=== PATIENT | male | born 1970 | race Caucasian/White ===

== ENCOUNTER 2017-04-28 15:10 | Inpatient (IN) ==
[2017-04-28] MEDS ORDERED: Ketorolac 15 MG/ML VIAL IM ONE (16:06)
--- NOTE | 2017-04-28 16:10 | Emergency Department Note ---
Disposition Clinical Impression: Renal colic on left side, Suicidal ideation Anemia Qualifiers: Anemia type: unspecified type Qualified Code(s): D64.9 - Anemia, unspecified GI bleed Qualifiers: GI bleed type/associated pathology: unspecified gastrointestinal hemorrhage type Qualified Code(s): K92.2 - Gastrointestinal hemorrhage, unspecified Disposition: Admitted As Inpatient Condition: Fair Referrals: NONE,PCP [Primary Care Provider] - Forms: ED Satisfaction Letter Time of Disposition: 17:35 Psych HPI - General Chief Complaint: ED Psychiatric Symptoms Stated Complaint: SI/Kidney stones Time Seen by Provider: 04/28/17 15:40 Source: patient Mode of arrival: ambulatory Limitations: no limitations Nursing Notes Reviewed: Yes Vital Signs Reviewed: Yes - History of Present Illness HPI Narrative: Patient states he has kidney stone pain. He cannot get the pain under control from the prescribed [place]. He states he cannot get his regular [place] filled because it is too early. He states he takes chronic pain medications and is likely addicted to them. He takes them for chronic kidney stone pain. He notes urinary frequency without hematuria. No nausea or vomiting. Pain localized to left flank The patient states that his inability to control his pain is causing him to feel suicidal. He states he is afraid that if he leaves here and pain he will kill himself Pt complaint: suicidal ideation Onset (ago): day(s) Duration: constant History of similar episodes: Yes Improves with: none Worsens with: other (kidney pain) Context: significant life stressor Alleged intoxication: No Associated Psychiatric Symptoms: suicidal ideation Associated symptoms: Reports: other (Left flank pain) Traumatic symptoms: denies traumatic injury Treatments prior to arrival: none Self harm or harm to others: admits thoughts of self harm - Related Data Home Medications Medication Instructions Recorded Confirmed Lipase/Protease/Amylase 2 each PO TIDWM 01/14/15 03/03/15 [Pancrelipase Dr 5,000 Unit Cap] Clomipramine HCl [Anafranil] 50 mg PO HS 03/03/15 03/03/15 Sertraline [Zoloft] 25 mg PO 03/03/15 03/03/15 Previous Rx's Medication Instructions Recorded Ondansetron ODT [Zofran ODT] 4 mg SL Q8HR PRN #15 tab.rapdis 01/07/15 HydrOXYzine Pamoate 50 mg PO QID 30 Days capsule 03/05/15 Sertraline [Zoloft] 200 mg PO DAILY 30 Days tablet 03/05/15 TraZODone 100 mg PO HS PRN 30 Days tablet 03/05/15 OxyCODONE/APAP 5/325 [Percocet 1 each PO Q8HR PRN #7 tablet 03/14/15 5/325] Oxycodone HCl/Acetaminophen 1 each PO Q4HR #10 tablet 01/22/16 [Percocet 5-325 mg Tablet] Ondansetron ODT [Zofran ODT] 4 mg SL Q6HR #20 tab.rapdis 10/21/16 Ketorolac [Toradol] 10 mg PO Q6HR #16 tablet 03/15/17 Naproxen [Naprosyn] 500 mg PO BID PRN #14 tablet 03/24/17 Ondansetron [Zofran] 4 mg PO Q8HR PRN #14 tablet 03/24/17 HYDROcodone/Acet 5/325 mg [[place] 1 - 2 tab PO Q6H PRN #10 tab 03/30/17 5-325 mg] Naproxen [Naprosyn] 500 mg PO BID #14 tablet 04/24/17 Allergies Allergy/AdvReac Type Severity Reaction Status Date / Time No Known Allergies Allergy Verified 04/22/17 18:21 All systems ED: reviewed and negative except as stated. Constitutional: Reports: as per HPI Eyes: Reports: as per HPI ENT ED: Reports: as per HPI Cardiovascular: Reports: as per HPI Respiratory: Reports: as per HPI Gastrointestinal: Reports: melena (Black stools) Genitourinary: Reports: frequency Musculoskeletal: Reports: back pain Integumentary: Reports: as per HPI Neurological: Reports: as per HPI Psychiatric: Reports: suicidal thoughts Endocrine: Reports: as per HPI Hematological/Lymphatic: Reports: as per HPI Allergic/Immunologic: Reports: as per HPI Past Medical History - Past Medical History Source: patient Medical history: Reports: diabetes, kidney stones Surgical history: Reports: cholecystectomy, other Psychiatric history: Reports: depression - Social History Smoking Status: Never smoker Smokeless Tobacco Status: No Alcohol use: Reports: none Drug use: Reports: none Physical Exam - General Limitations: no limitations General appearance: alert, anxious - Head Head exam: atraumatic - Eye Eye exam: Present: normal appearance - ENT ENT exam: normal exam - Neck Neck exam: Present: normal inspection - Chest Chest inspection: Present: normal inspection, symmetric chest wall rise - Respiratory Respiratory exam: Present: normal lung sounds bilaterally - Cardiovascular Cardiovascular exam: Present: regular rate, normal rhythm, normal heart sounds - Abdominal Exam Abdominal exam: Present: soft, Non-Tender - Rectal Exam Rectal exam: Present: normal inspection, normal rectal tone. Absent: bloody stool - Extremities Exam Extremities exam: Present: normal inspection - Back Exam Back exam: Present: CVA tenderness (L). Absent: CVA tenderness (R) - Neurological Exam Neurological exam: Present: alert, oriented X3, CN II-XII intact - Psychiatric Psychiatric exam: Present: normal affect, anxious - Skin Skin exam: Present: warm, dry, intact, pallor Course Course Narrative: Patient complains of left flank pain. States he has a chronic history of kidney stones causing pain not controlled by his home pain medications. He has now recently run out and is unable to fill his new prescription. I have reviewed the CT abdomen and pelvis dated 04/23/17 which was 5 days ago. This did not show any obstructive uropathy. I also reviewed the x-ray KUB dated which was 4 days prior to arrival which showed a radiopaque density over the left hemiabdomen. I discussed this finding with the radiologist Dr. Gurrola who states anatomically it is likely localized to the inferior pole of his left kidney - Reevaluation(s) Reevaluation #1: Hemoglobin is 8. This appears to have been trending down per my review of labs. Digital rectal exam performed with fecal occult testing Time: 17:07 Reevaluation #2: I am unable to clear the patient medically for behavioral evaluation due to anemia and GI bleed. Admission to the medicine service recommended. Patient agreeable Vital Signs Temperature 98.2 F 04/28/17 15:42 Pulse Rate 82 04/28/17 15:42 Respiratory Rate 16 04/28/17 15:42 Blood Pressure 144/81 04/28/17 15:42 O2 Sat by Pulse Oximetry 95 04/28/17 15:42 Temperature 98.2 F 04/28/17 15:42 Pulse Rate 82 04/28/17 15:42 Respiratory Rate 16 04/28/17 15:42 Blood Pressure 144/81 04/28/17 15:42 O2 Sat by Pulse Oximetry 95 04/28/17 15:42 Oxygen Delivery Oxygen Delivery Room Air Psych - Medical Records Medical records reviewed: Yes I reviewed the patient's medical records. - Lab Data Lab results reviewed: Yes I reviewed the patient's lab results. Result diagrams: 04/28/17 16:35 04/28/17 16:35 Lab Results 04/28/17 04/28/17 04/28/17 Range/Units 16:12 16:12 16:35 WBC 9.7 (4.3-11.1) K/mcL RBC 3.76 L (4.19-5.50) M/mcL Hgb 8.0 L (12.9-16.9) g/dL Hct 25.8 L (37.5-50.1) % MCV 68.6 L (83.0-100.0) fL MCH 21.3 L (28.0-33.3) pg MCHC 31.0 L (31.6-35.5) g/dL RDW 19.7 H (11.5-14.5) % Plt Count 680 H (140-400) K/mcL MPV 10.5 (9.4-12.4) fL Immature Gran % 0.2 (0-4) % Seg Neutrophils % 40.4 % Lymphocytes % 47.0 % Monocytes % 10.7 % Eosinophils % 0.6 % Basophils % 1.1 % Neutrophils # 3.9 (1.6-8.9) K/mcL Lymphocytes # 4.6 (0.6-4.6) K/mcL Monocytes # 1.0 (0.0-1.3) K/mcL Eosinophils # 0.1 (0.0-0.6) K/mcL Basophils # 0.1 (0.0-0.2) K/mcL Nucleated RBCs/100 WBC 0.5 H (0) /100 WBC Platelet Estimate Marked Increase H (Normal) Hypochromasia Present A (Not Present) Poikilocytosis 1+ A (Not Present) Anisocytosis 2+ A (Not Present) Target Cells 3+ A (Not Present) Sodium (136-145) mEq/L Potassium (3.5-4.5) mEq/L Chloride (98-109) mEq/L Carbon Dioxide (19-29) mEq/L BUN (8-26) mg/dL Creatinine (0.72-1.25) mg/dL Est GFR ( Amer) (> 60) Est GFR (Non-Af Amer) (> 60) BUN/Creatinine Ratio (6-26) Glucose (70-99) mg/dL Calculated Osmolality (280-300) Calcium (8.6-10.8) mg/dL Total Bilirubin (0.2-1.2) mg/dL Direct Bilirubin (0.0-0.5) mg/dL Indirect Bilirubin (0.0-1.2) mg/dL AST (5-34) Units/L ALT (0-55) Units/L Alkaline Phosphatase (38-126) Units/L Serum Total Protein (6.0-8.3) g/dL Albumin (3.5-5.0) g/dL Globulin (2.4-3.5) g/dL Albumin/Globulin Ratio (1.1-2.2) Urine Color Yellow (Yellow) Urine Clarity Clear (Clear) Urine pH 6.5 (5.0-8.0) pH Units Ur Specific [place] 1.027 H (1.010-1.025) Urine Protein Negative (Neg-Trace) mg/dL Urine Glucose (UA) Normal (Normal) mg/dL Urine Ketones Negative (Negative) mg/dL Urine Blood Small H (Negative) Urine Nitrite Negative (Negative) Urine Bilirubin Negative (Negative) Urine Urobilinogen Normal (Normal) mg/dL Ur Leukocyte Esterase Negative (Negative) Urine Microscopic RBC 30-50 H (0-3) per hpf Urine Microscopic WBC 0-3 (0-3) per hpf Ur Squamous Epith Cells Many H (None-Few) per lpf Urine Bacteria None Seen (None-Few) per hpf Hyaline Casts None Seen (None-Few) per lpf Stool Occult Blood (Negative) Salicylates (15-30) mg/dL Urine Opiates Screen Positive H (Wlzxas=534) ng/mL Acetaminophen (10-30) mcg/mL Ur Barbiturates Screen Negative (Lllnke=584) ng/mL Ur Phencyclidine Scrn Negative (Cutoff=25) ng/mL Ur Amphetamines Screen Negative (Lgzjwz=6552) ng/mL U Benzodiazepines Scrn Negative (Tkjbbj=475) ng/mL Urine Cocaine Screen Negative (Cutoff= 300) ng/mL U Marijuana (THC) Screen Negative (Cutoff = 50) ng/mL Ethyl Alcohol (0-10) mg/dL 04/28/17 04/28/17 Range/Units 16:35 16:58 WBC (4.3-11.1) K/mcL RBC (4.19-5.50) M/mcL Hgb (12.9-16.9) g/dL Hct (37.5-50.1) % MCV (83.0-100.0) fL MCH (28.0-33.3) pg MCHC (31.6-35.5) g/dL RDW (11.5-14.5) % Plt Count (140-400) K/mcL MPV (9.4-12.4) fL Immature Gran % (0-4) % Seg Neutrophils % % Lymphocytes % % Monocytes % % Eosinophils % % Basophils % % Neutrophils # (1.6-8.9) K/mcL Lymphocytes # (0.6-4.6) K/mcL Monocytes # (0.0-1.3) K/mcL Eosinophils # (0.0-0.6) K/mcL Basophils # (0.0-0.2) K/mcL Nucleated RBCs/100 WBC (0) /100 WBC Platelet Estimate (Normal) Hypochromasia (Not Present) Poikilocytosis (Not Present) Anisocytosis (Not Present) Target Cells (Not Present) Sodium 137 (136-145) mEq/L Potassium 4.1 (3.5-4.5) mEq/L Chloride 103 (98-109) mEq/L Carbon Dioxide 24 (19-29) mEq/L BUN 22 (8-26) mg/dL Creatinine 0.76 (0.72-1.25) mg/dL Est GFR ( Amer) > 60 (> 60) Est GFR (Non-Af Amer) > 60 (> 60) BUN/Creatinine Ratio 29 H (6-26) Glucose 88 (70-99) mg/dL Calculated Osmolality 287 (280-300) Calcium 8.5 L (8.6-10.8) mg/dL Total Bilirubin 0.4 (0.2-1.2) mg/dL Direct Bilirubin 0.2 (0.0-0.5) mg/dL Indirect Bilirubin 0.2 (0.0-1.2) mg/dL AST 44 H (5-34) Units/L ALT 35 (0-55) Units/L Alkaline Phosphatase 123 (38-126) Units/L Serum Total Protein 6.6 (6.0-8.3) g/dL Albumin 3.7 (3.5-5.0) g/dL Globulin 2.9 (2.4-3.5) g/dL Albumin/Globulin Ratio 1.3 (1.1-2.2) Urine Color (Yellow) Urine Clarity (Clear) Urine pH (5.0-8.0) pH Units Ur Specific [place] (1.010-1.025) Urine Protein (Neg-Trace) mg/dL Urine Glucose (UA) (Normal) mg/dL Urine Ketones (Negative) mg/dL Urine Blood (Negative) Urine Nitrite (Negative) Urine Bilirubin (Negative) Urine Urobilinogen (Normal) mg/dL Ur Leukocyte Esterase (Negative) Urine Microscopic RBC (0-3) per hpf Urine Microscopic WBC (0-3) per hpf Ur Squamous Epith Cells (None-Few) per lpf Urine Bacteria (None-Few) per hpf Hyaline Casts (None-Few) per lpf Stool Occult Blood Positive A (Negative) Salicylates < 5.0 L (15-30) mg/dL Urine Opiates Screen (Dkqpyq=217) ng/mL Acetaminophen < 1.0 L (10-30) mcg/mL Ur Barbiturates Screen (Mppfnh=184) ng/mL Ur Phencyclidine Scrn (Cutoff=25) ng/mL Ur Amphetamines Screen (Gixoex=3187) ng/mL U Benzodiazepines Scrn (Nfnkir=456) ng/mL Urine Cocaine Screen (Cutoff= 300) ng/mL U Marijuana (THC) Screen (Cutoff = 50) ng/mL Ethyl Alcohol < 10 (0-10) mg/dL Psychiatric Medical Clearance - Medical Clearance Checklist Medical History: Calculus of kidney (Acute) Depression (Acute) Suicidal ideations (Acute) Homicidal ideations (Acute) Substance or medication-induced depressive disorder (Acute) Bilateral flank pain (Acute) Renal colic (Acute) Anemia (Acute) Renal colic on left side (Acute) Abdominal pain (Inactive) Abdominal pain (Inactive) Abdominal pain (Inactive) Drug abuse (Inactive) Flank pain, acute (Inactive) Hematuria (Inactive) Hematuria (Inactive) Intractable pain (Inactive) Kidney stones (Inactive) Left flank pain, chronic (Inactive) Opiate addiction (Inactive) Opiate withdrawal (Inactive) Pain due to ureteral stent (Inactive) Renal colic (Inactive) Renal colic (Inactive) Renal colic (Inactive) Ureterolithiasis (Inactive) Ureterolithiasis (Inactive) Urinary frequency (Inactive) Urolithiasis (Inactive) No Social History Section defined Current Vitals: Last Vital Signs Temp 98.2 F 04/28/17 15:42 Pulse 82 04/28/17 15:42 Resp 16 04/28/17 15:42 BP 144/81 04/28/17 15:42 Pulse Ox 95 04/28/17 15:42 Psychiatric Lab Panel: Drug Levels and Toxicity 04/28/17 04/28/17 16:12 16:35 Urine Opiates Screen Positive H Acetaminophen < 1.0 L Ur Barbiturates Screen Negative Ur Phencyclidine Scrn Negative Ur Amphetamines Screen Negative U Benzodiazepines Scrn Negative Urine Cocaine Screen Negative U Marijuana (THC) Screen Negative Ethyl Alcohol < 10 Abnormal Labs: Abnormal lab results RBC 3.76 M/mcL (4.19-5.50) L 04/28/17 16:35 Hgb 8.0 g/dL (12.9-16.9) L 04/28/17 16:35 Hct 25.8 % (37.5-50.1) L 04/28/17 16:35 MCV 68.6 fL (83.0-100.0) L 04/28/17 16:35 MCH 21.3 pg (28.0-33.3) L 04/28/17 16:35 MCHC 31.0 g/dL (31.6-35.5) L 04/28/17 16:35 RDW 19.7 % (11.5-14.5) H 04/28/17 16:35 Plt Count 680 K/mcL (140-400) H 04/28/17 16:35 Nucleated RBCs/100 WBC 0.5 /100 WBC (0) H 04/28/17 16:35 Platelet Estimate Marked Increase (Normal) H 04/28/17 16:35 Hypochromasia Present (Not Present) A 04/28/17 16:35 Poikilocytosis 1+ (Not Present) A 04/28/17 16:35 Anisocytosis 2+ (Not Present) A 04/28/17 16:35 Target Cells 3+ (Not Present) A 04/28/17 16:35 BUN/Creatinine Ratio 29 (6-26) H 04/28/17 16:35 Calcium 8.5 mg/dL (8.6-10.8) L 04/28/17 16:35 AST 44 Units/L (5-34) H 04/28/17 16:35 Ur Specific [place] 1.027 (1.010-1.025) H 04/28/17 16:12 Urine Blood Small (Negative) H 04/28/17 16:12 Urine Microscopic RBC 30-50 per hpf (0-3) H 04/28/17 16:12 Ur Squamous Epith Cells Many per lpf (None-Few) H 04/28/17 16:12 Stool Occult Blood Positive (Negative) A 04/28/17 16:58 Salicylates < 5.0 mg/dL (15-30) L 04/28/17 16:35 Urine Opiates Screen Positive ng/mL (Qxlppu=038) H 04/28/17 16:12 Acetaminophen < 1.0 mcg/mL (10-30) L 04/28/17 16:35 Statement of Medical Clearance: I have evaluated the patient, reviewed diagnostic information, and certify that the patient's medical condition is sufficiently stable that transfer to the psychiatric unit does not pose a significant risk of deterioration.
[2017-04-28 16:22] LABS: Bilirubin,Urine Negative (Negative); Blood,Urine Small (Negative); Clarity,Urine Clear (Clear); Color,Urine Yellow (Yellow); Glucose,Urine (UA) Normal (Normal); Ketones,Urine Negative (Negative); Leukocyte Esterase,Urine Negative (Negative); Nitrite,Urine Negative (Negative); PH,Urine 6.5 pH Units (5.0-8.0); Protein,Urine Negative (Neg-Trace); Specific Gravity,Urine 1.027 (1.010-1.025); Urobilinogen,Urine Normal (Normal)
[2017-04-28 16:24] LABS: Bacteria,Urine None Seen per hpf (None-Few); Hyaline Casts,Urine None Seen per lpf (None-Few); RBC,Urine 30-50 per hpf (0-3); Squamous Epithelial Cell,Urine Many per lpf (None-Few); WBC,Urine 0-3 per hpf (0-3)
[2017-04-28 16:46] LABS: Amphetamine Screen,Urine Negative ng/mL (Cutoff=1000); Barbiturate Screen,Urine Negative ng/mL (Cutoff=200); Benzodiazepines Screen,Urine Negative ng/mL (Cutoff=200); Cannabinoid Screen,Urine Negative ng/mL (Cutoff = 50); Cocaine Screen,Urine Negative ng/mL (Cutoff= 300); Opiate Screen,Urine Positive ng/mL (Cutoff=300); Phencyclidine Screen,Urine Negative ng/mL (Cutoff=25)
[2017-04-28 16:48] LABS: Basophils # 0.1 K/mcL (0.0-0.2); Basophils % 1.1 %; Eosinophils # 0.1 K/mcL (0.0-0.6); Eosinophils % 0.6 %; Hematocrit 25.8 % (37.5-50.1); Immature Granulocytes % 0.2 % (0-4); Lymphocytes # 4.6 K/mcL (0.6-4.6); Mean Corpuscular Hemoglobin 21.3 pg (28.0-33.3); Mean Corpuscular Volume 68.6 fL (83.0-100.0); Mean Platelet Volume 10.5 fL (9.4-12.4); Monocytes % 10.7 %; Neutrophils # 3.9 K/mcL (1.6-8.9); Nucleated Red Blood Cells 0.5 /100 WBC (0); Platelet Count 680 K/mcL (140-400); Red Blood Count 3.76 M/mcL (4.19-5.50); Red Cell Distribution Width 19.7 % (11.5-14.5); Segmented Neutrophils % 40.4 %
[2017-04-28 16:56] LABS: Alanine Aminotransferase 35 Units/L (0-55); Albumin 3.7 g/dL (3.5-5.0); Albumin/Globulin Ratio 1.3 (1.1-2.2); Alkaline Phosphatase 123 Units/L (38-126); Aspartate Amino Transferase 44 Units/L (5-34); BUN/Creatinine Ratio 29 (6-26); Bilirubin,Direct 0.2 mg/dL (0.0-0.5); Bilirubin,Indirect 0.2 mg/dL (0.0-1.2); Bilirubin,Total 0.4 mg/dL (0.2-1.2); Blood Urea Nitrogen 22 mg/dL (8-26); Calcium 8.5 mg/dL (8.6-10.8); Carbon Dioxide 24 mEq/L (19-29); Chloride 103 mEq/L (98-109); Globulin 2.9 g/dL (2.4-3.5); Glucose 88 mg/dL (70-99); Osmolality,Calculated 287 (280-300); Potassium 4.1 mEq/L (3.5-4.5); Sodium 137 mEq/L (136-145); Total Protein 6.6 g/dL (6.0-8.3); eGFR For African Americans > 60 (> 60); eGFR For Non-African Americans > 60 (> 60)
[2017-04-28 17:00] LABS: Acetaminophen < 1.0 mcg/mL (10-30); Ethanol < 10 mg/dL (0-10); Salicylate < 5.0 mg/dL (15-30)
[2017-04-28] MEDS ORDERED: *HR* HYDROcodone/Acet 10/325 mg TABLET PO ONE (17:06)
[2017-04-28 17:09] LABS: Hypochromasia Present (Not Present)
[2017-04-28 17:10] LABS: Anisocytosis 2+ (Not Present); Target Cells 3+ (Not Present)
[2017-04-28 17:11] LABS: Platelet Estimate Marked Increase (Normal); Poikilocytosis 1+ (Not Present)
[2017-04-28] MEDS ORDERED: Pantoprazole 40 MG VIAL IVP ONE (17:32)
[2017-04-28] MEDS ORDERED: Pantoprazole 40 MG in 0.9 % Sodium Chloride Mini Bag 100 ML IVC SCH (21:15)
[2017-04-28] MEDS: *HR* Morphine 2 MG/ML SYRINGE IVP PRN (21:22)
[2017-04-28 21:38] LABS: Hematocrit 25.1 % (37.5-50.1); Hemoglobin 7.8 g/dL (12.9-16.9)
[2017-04-28] MEDS: Pantoprazole 80 MG in 0.9 % Sodium Chloride 250 ML IVC SCH (22:32)
--- NOTE | 2017-04-28 23:39 | Internal Med History&Physical ---
<Mary Mensah - Last Filed: 04/29/17 03:08> Date of Encounter: 04/29/17 Time of Encounter: 23:32 Assessment and Plan (1) Bilateral flank pain Current visit: No Status: Acute Patient has a history of recurrent kidney stones and complains of bilateral left and right flank pain but is worse on left, since 6am. He was admitted due to pain and he stated that if he goes home he will kill himself because he wants pain meds. He could not refill his hydrocodone today because it is too early. His banquet bartender is Dr. Tilley at [place] however he has seen many banquet bartender. CT abdomen showed b/l non-obstructing nephrolithiasis, non obstructive uropathy. No acute abdominal process. Urinalysis positive for blood Afebrile. Vitals stable. WBC WNL Very minimal left and right flank tenderness. IV morphine and dilaudid for pain consult nephrology monitor I/O NPO (2) GI bleed Current visit: Yes Status: Acute Patient reports hematachezia and dark stools for about 1 month. He admits to weakness and lightheaded. He saw his drugless physician in [place] 1 month ago for this but they forgot to order the test to be done here. 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 Denies taking NSAIDS on regular basis. He takes pantoprazole for GERD Stool occult positive Hgb 7.8 vitals stable 2 units PRBCs given Consult GI in morning for possible EGD/ colonoscopy NPO re-check H&H at 4am Qualifiers: GI bleed type/associated pathology: unspecified gastrointestinal hemorrhage type Qualified Code(s): K92.2 - Gastrointestinal hemorrhage, unspecified (3) Anemia Current visit: Yes Status: Acute Most likely due to GI bleed. Patient reports blood in stool, weakness, and lightheaded Hgb 7.8 stool occult positive 2 units PRBC given re-check H&H at 4am Qualifiers: Anemia type: unspecified type Qualified Code(s): D64.9 - Anemia, unspecified (4) Suicidal ideations Current visit: Yes Status: Acute He stated in the ED that he would kill himself if he went home because of the left and right flank pain. He stated he wanted pain medication. He could not refill his hydrocodone at pharmacy because it was too soon. Upon my examination of him he told he that he did not want to kill himself anymore or anyone else. He has never attempted suicide before. He has a history of depression for which he is taking zoloft, clomipramine, and trazodone His psychiatrist is Dr. Sanchez Consult psych in morning (5) Depression Current visit: No Status: Acute He has a history of depression for which he is taking zoloft, clomipramine, and trazodone continue home medications Qualifiers: Depression Type: major depressive disorder Qualified Code(s): F32.9 - Major depressive disorder, single episode, unspecified (6) Diabetes Current visit: Yes Status: Acute History of diabetes on insulin glucose stable glucose accu check monitoring continue insulin Qualifiers: Diabetes mellitus type: type 1 Qualified Code(s): E10.9 - Type 1 diabetes mellitus without complications (7) DVT prophylaxis Current visit: Yes Status: Acute cannot give heparin due to possible GI bleed and Hgb 7.8 Internal Medicine - H&P: HPI Chief complaint: left and right CVA pain and suicidal Admitted From: Emergency Dept Plans for Post Hospital Care: Home History of present illness: Mr. Naidu is a 46 year old male with a history of kidney stones, diabetes, GERD, depression who presented to the ED complaining of right and left CVA tenderness that began at 6am this morning. He stated it progressively worsened, pain medication and moving around help to improve pain. He ran out of his hydrocodone and it is too early for a refill. He reported to the ED would kill himself if he did not pain medication and had to go home. He takes that medication for his chronic kidney stones. He describes the pain as pressure like and achy. He also has pain and pressure in his suprapubic region. He has passed stones on his own and has had to have them removed in the past. He has been to many nephrologists including the [facility] but most recently he has seen Dr. Tilley at [facility]. He also admits to blood in his stool for the past month. Red blood around his stool and some darker stools, not everyday. He saw his drugless physician in [place] at that time and they were going to order an EGD/ colonoscopy but he asked them to order it to be completed at [facility] but it never happened so he has not had the procedure. He stated he has never had a colonoscopy before. Had an EGD in 2013 for pancreatectomy due to recurrent non- alcoholic pancreatitis. Admits dysuria, increased urinary frequency, hematachezia, melena, weakness, lightheaded, nausea. Denies fever, chills, chest pain, dyspnea, vomiting, change in vision. He denies taking NSAIDS on a regular basis. He stated that he has never attempted suicide. Past Med Surg Social Fam HX - Past Medical History Medical history: diabetes, kidney stones Psychiatric history: depression - Past Surgical History Surgical History: cholecystectomy, other (pancreactomy) - Social History Smoking Status: Never smoker Smokeless Tobacco Status: No Alcohol use: none Drug use: none - Family History Father Living Status: Hx Family Cardiac Disorders: Yes ([place]) Sister Hx Family GI Disorders: Yes (possible kidney stones) Internal Medicine - H&P: Meds Clomipramine HCl [Anafranil] 25 mg PO HS 03/03/15 [History] Dicyclomine [Bentyl] 10 mg PO QID 04/28/17 [History] HYDROcodone/Acet 5/325 mg [[place] 5-325 mg] 1 tab PO Q4H PRN 04/28/17 [History] Ibuprofen [Motrin] 200 mg PO TID PRN 04/28/17 [History] Insulin Glargine,Hum.rec.anlog [Tomayra Solbashir] 6 units SQ DAILY 04/28/17 [ History] Lipase/Protease/Amylase [Lyric Her 36,000 Units Capsule] 1 each PO AD 04/28/17 [ History] Lipase/Protease/Amylase [Lyric Her 36,000 Units Capsule] 2 each PO TIDWM [History] Pantoprazole Sodium 40 mg PO DAILY 04/28/17 [History] Ropinirole HCl [Requip] 2 mg PO TID 04/28/17 [History] Sertraline [Zoloft] 50 mg PO DAILY 04/28/17 [History] TraZODone 100 mg PO HS 04/28/17 [History] 3 Allergy/AdvReac Type Severity Reaction Status Date / Time No Known Allergies Allergy Verified 04/22/17 18:21 All Systems PM: A 10-system review of systems was performed and is negative for pertinent findings except as documented above in the HPI. - Constitutional Constitutional: weakness, no chills, no fever(s) - EENT Eyes: no blurry vision, no change in vision - Cardiovascular Cardiovascular ROS IM: lightheadedness, no chest pain, no diaphoresis, no palpitations, no syncope - Respiratory Respiratory: no cough, no hemoptysis, no dyspnea on exertion, no wheezing - Gastrointestinal Gastrointestinal: hematochezia, melena, nausea, no abdominal pain, no diarrhea, no hematemesis, no vomiting - Genitourinary Genitourinary ROS male: dysuria, urinary frequency, no genital lesions, no genital pain, no hematuria, no scrotal swelling, no testicular mass - Integumentary Integumentary IM: no new lesions, no skin ulcer - Neurological Neurological ROS: headache(s), no frequent falls - Psychiatric Psychiatric: suicidal ideation, no homicidal ideation - Constitutional Vitals: Temp Pulse Resp BP Pulse Ox 98.1 F 52 16 156/81 100 04/28/17 19:30 04/28/17 19:30 04/28/17 19:30 04/28/17 19:30 04/28/17 19:30 General appearance: Present: mild distress, A&O X 3 - Head Head exam: Present: atraumatic, normocephalic - ENT ENT exam: Present: mucous membranes moist - Respiratory Respiratory exam: Present: CTAB. Absent: rales, rhonchi, wheezes - Cardiovascular Cardiovascular exam: Present: RRR, +S1, +S2. Absent: clicks - GI/Abdominal GI/Abdominal exam: Present: normal bowel sounds, soft, tenderness (suprapubic). Absent: guarding - Extremities Exam Extremities exam: Absent: calf tenderness - Back Exam Back exam: Present: CVA tenderness (L), CVA tenderness (R), normal inspection. Absent: rash noted - Psychiatric Psychiatric exam: Present: anxious, normal affect, normal mood. Absent: homicidal ideation - Skin Skin exam: Present: dry, intact. Absent: petechiae Internal Med - H&P Results - Labs CBC & Chem 7: 04/28/17 21:27 04/28/17 16:35 Labs: Short CBC 04/28/17 Range/Units 21:27 Hgb 7.8 L (12.9-16.9) g/dL Hct 25.1 L (37.5-50.1) % <Barak Owen - Last Filed: 04/29/17 03:48> Date of Encounter: 04/29/17 Time of Encounter: 00:15 - Cardiovascular Cardiovascular ROS IM: no chest pain, no dyspnea - Respiratory Respiratory: no cough, no hemoptysis - Gastrointestinal Gastrointestinal: abdominal pain (mild epigastric), hematochezia, melena, nausea - Genitourinary Genitourinary ROS male: dysuria, flank pain, hematuria - Neurological Neurological ROS: no dizziness, no focal weakness, no headache(s) - Psychiatric Psychiatric: anxiety, depression, suicidal ideation - Endocrine Endocrine IM: no polydipsia, no polyuria - Hematologic/Lymphatic Hematologic/Lymphatic: no easy bruising - Allergic/Immunologic Allergic/Immunologic: no GI upset with certain foods - Constitutional Vitals: Temp Pulse Resp BP Pulse Ox 98.0 F 62 20 137/77 99 04/29/17 00:46 04/29/17 00:46 04/29/17 00:46 04/29/17 00:46 04/29/17 00:31 General appearance: Present: mild distress, A&O X 3 - Eye Eye exam: Present: conjunctival injection, PERRL. Absent: scleral icterus Pupils: Present: normal accommodation - ENT ENT exam: Present: mucous membranes dry, normal exam - Neck Neck exam general surgery: Present: full ROM, supple. Absent: tenderness, nuchal rigidity, thyromegaly - Respiratory Respiratory exam: Present: CTAB. Absent: rales, rhonchi, wheezes - Cardiovascular Cardiovascular exam: Present: RRR, +S1, +S2. Absent: diastolic murmur, systolic murmur - GI/Abdominal GI/Abdominal exam: Present: normal bowel sounds, soft, tenderness (mild epigastric and suprapubic). Absent: guarding, rebound - Extremities Exam Extremities exam: Present: full ROM, warm, radial pulses palpable and symmetrical. Absent: calf tenderness, joint swelling, tenderness - Back Exam Back exam: Present: CVA tenderness (L), normal inspection. Absent: CVA tenderness (R) - Neurological Exam Neurological exam: Present: alert, CN II-XII intact, oriented X3, no focal deficits, strengths equal and symetr throughout - Psychiatric Psychiatric exam: Present: anxious. Absent: suicidal ideation (denies presently ) - Skin Skin exam: Present: dry, warm. Absent: rash Internal Med - H&P Results - Labs CBC & Chem 7: 04/28/17 21:27 04/28/17 16:35 Labs: Short CBC 04/28/17 Range/Units 21:27 Hgb 7.8 L (12.9-16.9) g/dL Hct 25.1 L (37.5-50.1) % - Impressions ITS Impressions Abdomen/Pelvis CT 04/28/17 22:37 IMPRESSION: 1. No acute findings within the abdomen or pelvis. No evidence of obstructive uropathy or. Bilateral nonobstructive nephrolithiasis. 2. Moderate colonic stool burden, particularly proximally suggesting constipation. 3. Previous pancreatectomy and splenectomy. D/ / Josh Gustafson MD / Josh Gustafson MD Interpreting Provider: Josh Gustafson MD - Diagnostic Studies CT scan - abdomen Status: image reviewed by me (No hydronephrosis; Bilateral non-obstructing kidney stones) - Attending Attestation I discussed the patient ANGOON, PMH, ROS, lab data, and exam findings with Dr. Mensah. I then saw patient independently as well. I ordered a STAT CT renal scan prior to my assessment of patient, and it showed bilateral non-obstructing kidney stones with no hydronephrosis. When I saw patient, he is describing left flank pain radiating to his left groin in a spasmodic pattern. Additionally, he thinks he passed a small stone tonight in the hospital. I asked his nurse to strain the urine. He does have some blood on the urinalysis. Additionally, he has history of chronic pancreatitis and had a pancreatectomy in the past. He takes [place] several times per day and ran out of his medication earlier yesterday. He also is anemic and noted melena bowel movements. I ordered PRBC transfusion. He was due to have EGD and colonoscopy at [facility] with his GI physician, but he preferred to have it done here locally, but that never happened to date. Patient denies any suicidal thoughts now and regrets threatening to kill himself. I advised him of the upcoming psychiatry, nephrology, and GI consults. I will adjust his pain meds so as to provide some relief. Meanwhile, I will place him on IVF hydration as well. Other than my comments above and noted exam findings, I agree with Dr. Mensah's assessment and plan.
[2017-04-29] MEDS ORDERED: 0.9 % Sodium Chloride 250 ML ONE (00:20)
[2017-04-29] MEDS ORDERED: Naloxone 0.4 MG/ML INJ IVP PRN (00:24)
[2017-04-29] MEDS: *HR* Morphine 2 MG/ML SYRINGE IVP PRN (00:38)
[2017-04-29] MEDS ORDERED: *HR* HYDROmorphone (PF) 1 MG/ML SYRINGE IVP PRN (02:02)
[2017-04-29] MEDS ORDERED: Dextrose Gel 15 GM PO PRN ×2 (02:05)
[2017-04-29] MEDS ORDERED: D5% in Water 1,000 ML IVC PRN (02:05)
[2017-04-29] MEDS ORDERED: *HR* Dextrose 50 % in Water (Syg) 50 ML SYRINGE IVP PRN (02:05)
[2017-04-29] MEDS: *HR* HYDROcodone/Acet 5/325 mg TABLET PO PRN ×2 (02:22→06:31)
[2017-04-29] MEDS ORDERED: Insulin LISPRO 300 UNITS/3 ML VIAL SQ SCH (04:45)
[2017-04-29] MEDS: 0.9 % Sodium Chloride 1,000 ML IVC SCH ×3 (06:31→17:31)
[2017-04-29 07:09] LABS: Basophils # 0.1 K/mcL (0.0-0.2); Basophils % 1.6 %; Eosinophils # 0.4 K/mcL (0.0-0.6); Eosinophils % 4.5 %; Hematocrit 34.7 % (37.5-50.1); Immature Granulocytes % 0.1 % (0-4); Lymphocytes # 3.8 K/mcL (0.6-4.6); Lymphocytes % 45.4 %; Mean Corpuscular HGB Conc 32.3 g/dL (31.6-35.5); Mean Corpuscular Hemoglobin 23.6 pg (28.0-33.3); Mean Corpuscular Volume 73.1 fL (83.0-100.0); Mean Platelet Volume 10.7 fL (9.4-12.4); Monocytes # 0.9 K/mcL (0.0-1.3); Monocytes % 11.3 %; Neutrophils # 3.1 K/mcL (1.6-8.9); Nucleated Red Blood Cells 0.6 /100 WBC (0); Platelet Count 640 K/mcL (140-400); Red Blood Count 4.75 M/mcL (4.19-5.50); Red Cell Distribution Width 23.3 % (11.5-14.5); Segmented Neutrophils % 37.1 %
[2017-04-29 07:22] LABS: Hemoglobin 11.2 g/dL (12.9-16.9)
[2017-04-29 07:36] LABS: BUN/Creatinine Ratio 23 (6-26); Blood Urea Nitrogen 17 mg/dL (8-26); Carbon Dioxide 23 mEq/L (19-29); Chloride 103 mEq/L (98-109); Glucose 96 mg/dL (70-99); Osmolality,Calculated 289 (280-300); Potassium 4.5 mEq/L (3.5-4.5); Sodium 139 mEq/L (136-145); eGFR For African Americans > 60 (> 60); eGFR For Non-African Americans > 60 (> 60)
[2017-04-29] MEDS: Insulin LISPRO 300 UNITS/3 ML VIAL SQ SCH ×4 (07:51→22:08)
[2017-04-29 07:57] LABS: Anisocytosis 1+ (Not Present); Burr Cells 2+ (Not Present); Microcytosis Present (Not Present)
[2017-04-29 07:58] LABS: Platelet Estimate Marked Increase (Normal)
[2017-04-29 08:15] LABS: INR 1.1; Prothrombin Time 11.6 Seconds (9.4-12.1)
--- NOTE | 2017-04-29 08:49 | Event Note ---
Date of Encounter: 04/29/17 Time of Encounter: 08:41 Nephrology Chart review [facility] group was consulted for history recurent renal stones in this patient. I see that he saw Dr. Tilley in [place]; and I also read the 44 pages of scanned notes from [facility] plus the other Urology notes. I do not recommend repeating the same work up for recurrent renal stones at this time, since he's been through a work up several times. Fortunately, he has intact renal function and no signs of need for urgent hemodialysis. There was no hydronephrosis either. He already has an outpatient follow up with Dr. Tilley in about 1 month. In general Nephrology does not treat pain, so will defer pain mgt to the primary team. I read the telephone encounters in [facility] regarding this patient's early requests for opioids via the Internal Medicine clinic. He was out of opioids so he went to the ER, which led to this admission that appears to be primarily for pain control. In general for all patients with a hx of recurrent stones: continue to focus on a goal of 2L of fluids per day to improve UOP. See Dr. Tilley's outpatient consult note from less than one month ago for further details. Will sign off since he does not appear to have new inpatient Nephrology needs at this time, but please feel free to contact me or Dr. Tilley with any nephrology questions. Thank you.
[2017-04-29] MEDS: Pantoprazole 40 MG VIAL IVP SCH ×2 (09:30→17:30)
--- NOTE | 2017-04-29 09:33 | Gastroenterology Consult Note ---
<Ernesto Hicks - Last Filed: 04/29/17 09:28> Date of Encounter: 04/29/17 Time of Encounter: 09:29 - Assessment and plan (1) Melena Current Visit: Yes Status: Acute Assessment and plan: Patient reports melena for the last 2 months. Also states she has some bright red blood mixed in with the stool. Denies NSAID, alcohol, IV drug use. Denies family hx of colon cancer. His hemoglobin was 7.8 on arrival. Stool occult was positive. He has received 2 packed red blood cells. Continue Protonix. Plan for EGD today. Patient has not been prepped for colonoscopy. Depending on findings on EGD (if source of bleeding found) may be done outpatient. Hemodynamically stable. (2) Suicidal ideations Current Visit: Yes Status: Acute Assessment and plan: According to patient if he did not receive pain medications for his flank pain from ED he would kill himself. Patient has a sitter. He denied any suicidal ideations to me. Psych consult. (3) Bilateral flank pain Current Visit: No Status: Acute (4) Anemia Current Visit: Yes Status: Acute Assessment and plan: Microcytic anemia. In the setting of melena. Patient's baseline hemoglobin is 11-12. He does not take any iron supplementations at home. We will need to rule out upper and lower GI bleed. We will undergo EGD today. We will need to undergo bowel prep before colonoscopy. Qualifiers: Anemia type: unspecified type Qualified Code(s): D64.9 - Anemia, unspecified (5) DVT prophylaxis Current Visit: Yes Status: Acute Assessment and plan: EPCD - Time Spent With Patient Total time spent is greater than 50% in coordination of care (as documented) at patient's floor/unit and/or counseling patient: GI History of Present Illness - Data of Consult Patient: new to practice Consult date: 04/29/17 Requesting Physician: Billy Ponce MD - Consult Narrative Reason for consult: Melena History of present illness: Mr. Naidu is a 46 year old male who presented to the emergency department with bilateral CVA tenderness. Patient has a history of kidney stones and states his baseline CVA tenderness but this has become worse. And patient had ran out of his pain medication and therefore went to the ED. In the emergency department patient said he would kill himself if he did not get any pain medication. Patient states he also has pain in the suprapubic area. Consult was placed because patient also admitted he had melena for the past 2 months. He states he has had 2-3 episodes. He also states he has intermittent bright red blood mixed with his stool. He sees a head transfer clerk [place] and was scheduled for EGD and colonoscopy but this has not happened. Patient presented with a hemoglobin of 8 and was given 2 units of packed red blood cells and his hemoglobin is 11. His fecal occult blood test was positive. Patient had a history of non-all called pancreatitis secondary to unknown etiology and underwent pancreatectomy with splenectomy. He also has a history of a cholecystectomy. Patient has had multiple EGDs secondary to post- pancreatectomy which have always been negative. He has never had a colonoscopy. Patient denies family history of colon cancer, denies tobacco or alcohol use. Patient denies IV drug use. Patient denies use of NSAIDs. Past Med Surg Social Fam HX - Past Medical History Medical history: diabetes, kidney stones Psychiatric history: depression - Past Surgical History Surgical History: cholecystectomy, other (pancreactomy) - Social History Smoking Status: Never smoker Smokeless Tobacco Status: No Alcohol use: none Drug use: none - Family History Father Living Status: Hx Family Cardiac Disorders: Yes ([place]) Sister Hx Family GI Disorders: Yes (possible kidney stones) Review of Systems: Constitutional: Denies fever, chills HEENT: Denies headache, vision changes, neck pain, sore throat, rhinorrhea Heart: Denies chest pain palpitations Lungs: Denies shortness of breath cough Abdomen: Reports bilateral flank pain, nausea. Denies vomiting. Reports melena Back: Denies back pain Kidney: Reports dysuria, urinary frequency. Denies hematuria Skin: warm and dry Extremities: Denies swelling, pain Neuro: Denies numbness, and tingling - Constitutional Vitals: Temp Pulse Resp BP Pulse Ox 98.3 F 55 14 146/90 100 04/29/17 09:11 04/29/17 09:11 04/29/17 09:11 04/29/17 09:11 04/29/17 09:11 Results - Labs CBC & Chem 7: 04/29/17 06:29 04/29/17 06:29 Labs: Last Result Calcium 9.0 mg/dL (8.6-10.8) 04/29/17 06:29 Troponin I 0.00 ng/mL (0-0.03) 04/29/17 07:40 Stool Occult Blood Positive (Negative) A 04/28/17 16:58 Salicylates < 5.0 mg/dL (15-30) L 04/28/17 16:35 Urine Opiates Screen Positive ng/mL (Uqxsca=598) H 04/28/17 16:12 Entire Visit Hgb 11.2 g/dL (12.9-16.9) L D 04/29/17 06:29 Hct 34.7 % (37.5-50.1) L 04/29/17 06:29 PT 11.6 Seconds (9.4-12.1) 04/29/17 07:40 Total Bilirubin 0.4 mg/dL (0.2-1.2) 04/28/17 16:35 AST 44 Units/L (5-34) H 04/28/17 16:35 ALT 35 Units/L (0-55) 04/28/17 16:35 Acetaminophen < 1.0 mcg/mL (10-30) L 04/28/17 16:35 - ABG ABG results: PT/INR, D-dimer PT 11.6 Seconds (9.4-12.1) 04/29/17 07:40 Consult Discharge Plan - Plan Referrals: NONE,PCP [Primary Care Provider] - <Yoseph Theodore - Last Filed: 04/30/17 12:46> Date of Encounter: 04/29/17 - Time Spent With Patient Total time spent is greater than 50% in coordination of care (as documented) at patient's floor/unit and/or counseling patient: GI History of Present Illness - Data of Consult Requesting Physician: Billy Ponce MD - Consult Narrative History of present illness: Mr. Naidu is a 46 year old male Past Med Surg Social Fam HX - Family History Father Living Status: Hx Family Cardiac Disorders: Yes ([place]) Sister Hx Family GI Disorders: Yes (possible kidney stones) Maternal Grandfather Living Status: Hx Family Cardiac Disorders: Yes ([place]) - Constitutional Vitals: Temp Pulse Resp BP Pulse Ox 98.1 F 48 14 142/74 98 04/30/17 09:06 04/30/17 09:06 04/30/17 09:06 04/30/17 09:06 04/30/17 09:06 Results - Labs CBC & Chem 7: 04/30/17 04:02 04/30/17 04:02 Labs: Last Result Calcium 8.8 mg/dL (8.6-10.8) 04/30/17 04:02 Troponin I 0.00 ng/mL (0-0.03) 04/29/17 07:40 Stool Occult Blood Positive (Negative) A 04/28/17 16:58 Salicylates < 5.0 mg/dL (15-30) L 04/28/17 16:35 Urine Opiates Screen Positive ng/mL (Ueoyqj=365) H 04/28/17 16:12 Entire Visit Hgb 11.2 g/dL (12.9-16.9) L 04/30/17 04:02 Hct 35.5 % (37.5-50.1) L 04/30/17 04:02 PT 11.6 Seconds (9.4-12.1) 04/29/17 07:40 Total Bilirubin 0.4 mg/dL (0.2-1.2) 04/28/17 16:35 AST 44 Units/L (5-34) H 04/28/17 16:35 ALT 35 Units/L (0-55) 04/28/17 16:35 Acetaminophen < 1.0 mcg/mL (10-30) L 04/28/17 16:35 - ABG ABG results: PT/INR, D-dimer PT 11.6 Seconds (9.4-12.1) 04/29/17 07:40 - Attending Attestation Patient with interesting past medical history significant for recurrent acute pancreatitis, chronic pancreatitis underwent total pancreatectomy with islet transplantation at [facility]. Complicated post op course with 6 months in and out of hospital with infections. Now comes in with abdominal pain. PLan EGD Very pleasant individual I examined this patient and my medical decision-making was reviewed with the Resident Physician. I agree with the documented findings, disposition and treatment plan as described except to the extent set forth below.
--- NOTE | 2017-04-29 10:13 | Internal Med Progress Note ---
Addendum entered and electronically signed by Walt Morales DO 16:45: Patient seen and examined at bedside. He states his flank pain is significantly improved. Denies chest pain, shortness of breath or other new complaints PHYSICAL EXAM: Regular rate and rhythm, no M/R/G, CTB, no wheezes, rales, rhonchi, abdomen soft, nontender, nondistended, no extremity swelling, alert and oriented x3, no focal deficits Original Note: <Walt Morales - Last Filed: 04/29/17 16:37> Date of Encounter: 04/29/17 Time of Encounter: 10:03 - Assessment and plan (1) Bilateral flank pain Current Visit: No Status: Acute Assessment and plan: History of recurrent kidney stones Current bilateral flank pain left >right x1 day Out of opioid medication for chronic kidney stone pain CT abdomen showed nonobstructive nephrolithiasis UA + for blood IV morphine and Dilaudid for pain Appreciate nephrology input Recommend against repeat workup for renal stones, intact renal function and no hydronephrosis Continue IV fluids 2 L daily to improve urine output Follow-up with Dr. Tilley as outpatient as scheduled in 1 month (2) Melena Current Visit: Yes Status: Acute Assessment and plan: Appreciate gastroenterology input + occult blood Received 2 units PRBCs Continue Protonix Plan for EGD today (3) GI bleed Current Visit: Yes Status: Acute Assessment and plan: Melena & hematochezia for about a month Weakness + lightheadedness No regular NSAID use Pantoprazole for GERD at home, continue Stool occult positive Hemoglobin increased from 7.8 --> 11.2 following 2 units PRBCs Appreciate gastroenterology input, plan for EGD Qualifiers: GI bleed type/associated pathology: unspecified gastrointestinal hemorrhage type Qualified Code(s): K92.2 - Gastrointestinal hemorrhage, unspecified (4) Anemia Current Visit: Yes Status: Acute Assessment and plan: Stable, will continue to monitor Qualifiers: Anemia type: unspecified type Qualified Code(s): D64.9 - Anemia, unspecified (5) Suicidal ideations Current Visit: Yes Status: Acute Assessment and plan: Out of opioid medication for chronic flank pain Stated would kill himself if sent home without pain medication No prior suicide attempts (6) Depression Current Visit: No Status: Chronic Assessment and plan: History of depression on Zoloft, clomipramine, trazodone Qualifiers: Depression Type: major depressive disorder Major depression recurrence: recurrent Active/Remission status: in partial remission Qualified Code(s): F33.41 - Major depressive disorder, recurrent, in partial remission (7) Diabetes Current Visit: Yes Status: Acute Assessment and plan: History of diabetes on insulin glucose stable glucose accu check monitoring continue insulin (8) DVT prophylaxis Current Visit: Yes Status: Acute Assessment and plan: cannot give heparin due to possible GI bleed - Subjective Interval history: 46-year-old male admitted 04/28 here for flank pain, GI bleed, and suicidal ideations. 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 Patient told ER physician that he ran out of his hydrocodone for chronic kidney stones and would kill himself if sent home without refill. Also reported blood in stool and dark stools x1 month. EGD and colonoscopy initially ordered but never accomplished. CT abdomen/pelvis 04/28 showed bilateral nonobstructive nephrolithiasis but no acute findings within abdomen or pelvis, no obstructive uropathy - Constitutional Vitals: Temp Pulse Resp BP Pulse Ox 98.3 F 55 14 146/90 100 04/29/17 09:11 04/29/17 09:11 04/29/17 09:11 04/29/17 09:11 04/29/17 09:11 General appearance: Present: mild distress, A&O X 3 Internal Medicine: Result - Labs CBC & Chem 7: 04/29/17 06:29 04/29/17 06:29 Labs: Short CBC 04/29/17 Range/Units 06:29 WBC 8.3 (4.3-11.1) K/mcL Hgb 11.2 L D (12.9-16.9) g/dL Hct 34.7 L (37.5-50.1) % Plt Count 640 H (140-400) K/mcL Neutrophils # 3.1 (1.6-8.9) K/mcL BMP 04/29/17 06:29 Sodium 139 Potassium 4.5 Chloride 103 Carbon Dioxide 23 BUN 17 Creatinine 0.75 Glucose 96 Calcium 9.0 Cardiac Enzymes 04/29/17 Range/Units 07:40 Troponin I 0.00 (0-0.03) ng/mL - ABG Interpretation ABG results: PT/INR, D-dimer PT 11.6 Seconds (9.4-12.1) 04/29/17 07:40 Consult Discharge Plan - Plan Referrals: NONE,PCP [Primary Care Provider] - <Billy Ponce - Last Filed: 04/29/17 19:47> Date of Encounter: 04/29/17 - Constitutional Vitals: Temp Pulse Resp BP Pulse Ox 98.4 F 59 14 155/79 100 04/29/17 13:55 04/29/17 13:55 04/29/17 13:55 04/29/17 13:55 04/29/17 13:55 Internal Medicine: Result - Labs CBC & Chem 7: 04/29/17 17:00 04/29/17 17:00 Labs: Short CBC 04/29/17 04/29/17 Range/Units 06:29 17:00 WBC 8.3 7.9 (4.3-11.1) K/mcL Hgb 11.2 L D 10.5 L (12.9-16.9) g/dL Hct 34.7 L 33.3 L (37.5-50.1) % Plt Count 640 H 609 H (140-400) K/mcL Neutrophils # 3.1 2.7 (1.6-8.9) K/mcL BMP 04/29/17 04/29/17 06:29 17:00 Sodium 139 139 Potassium 4.5 4.2 Chloride 103 105 Carbon Dioxide 23 26 BUN 17 15 Creatinine 0.75 0.74 Glucose 96 75 Calcium 9.0 9.2 Cardiac Enzymes 04/29/17 Range/Units 07:40 Troponin I 0.00 (0-0.03) ng/mL - ABG Interpretation ABG results: PT/INR, D-dimer PT 11.6 Seconds (9.4-12.1) 04/29/17 07:40 - Attending Attestation I conducted a face to face diagnostic evaluation of this patient and my medical decision-making was reviewed with the Resident Physician, Dr Walt Morales. I agree with the documented findings, disposition and treatment plan as described except to the extent set forth below: GI consulted. Follow-up with their accommodation. Colonoscopy in the morning.
[2017-04-29] MEDS: *HR* HYDROmorphone (PF) 1 MG/ML SYRINGE IVP PRN ×4 (10:27→22:11)
--- NOTE | 2017-04-29 12:39 | Consult Note ---
Date of Encounter: 04/29/17 Time of Encounter: 11:30 Assessment & Recommendation (1) Depression Current visit: No Status: Chronic Assessment & Recommendation: please continue zoloft , clomipramine and trazodone patient at present is not suicidal or homicidal and upon discharge will need to be given appointment for follow up counselling and out patient psychiatrist Qualifiers: Depression Type: major depressive disorder Major depression recurrence: recurrent Active/Remission status: in partial remission Qualified Code(s): F33.41 - Major depressive disorder, recurrent, in partial remission (2) OCD (obsessive compulsive disorder) Current visit: Yes Status: Chronic Qualifiers: Obsessive-compulsive disorder type: mixed obsessional thoughts and acts Qualified Code(s): F42.2 - Mixed obsessional thoughts and acts History of Present Illness Patient: new to practice Requesting Physician: Billy Ponce MD Reason for consult: suicidal ideation History of present illness: Mr. Naidu is a 46 year old male who was consulted for suicidal ideation. Patient was evaluated as per him "I over reacted when they told me i will not get anything for pain , i panicked" states he is not suicidal and doing better today , denies any past suicidal thoughts or attempts but when his pain is severe he feels like like not living like this. he states he has chronic kidney stones and h/o chronic pancreatitis and h/o of pancreatectomy and has been dealing with pain for long time. states he has abused his pain pills not to get high but to get rid of pain. As per him his pain is much better today and he feels fine. he gets upset, unhappy and down secondary to his health problems and pain, as per him he was very active, working, playing golf , now his social , occupational life has been affected secondary to his health issues, he feels zoloft is helping him , he has h/o depression and OCD and is on meds provided by psychiatrist . Patient was calm and cooperative during session and able to give reliable history , he has no arms in house, lives with mother, and goes to support [facility], also started counselling and has seen counsellor one time , can not recall name. A/P depression/ocd Rec. No 1:1 needed at present as patient not in imenent danger to self//others. continue his zoloft/trazodone and clompraime need to f/u for counselling and to make appointment with Dr Chino at [place] his psychiatrist. Thank you for consult will sign off. CC: Billy Ponce MD Past Med Surg Social Fam HX - Past Medical History Medical history: diabetes, kidney stones - Past Psychiatric History Psychiatric history: Reports: anxiety, depression Family psychiatric history: Yes Family History of Suicide: None (maternal grand father was dx with schizoprenia) - Past Surgical History Surgical History: cholecystectomy, other (pancreactomy) - Social History Smoking Status: Never smoker Smokeless Tobacco Status: No Alcohol use: none Drug use: none - Family History Maternal Grandfather Living Status: Hx Family Cardiac Disorders: Yes ([place]) Sister Hx Family GI Disorders: Yes (possible kidney stones) Medications & Allergies Clomipramine HCl [Anafranil] 25 mg PO HS 03/03/15 [History] Dicyclomine [Bentyl] 10 mg PO QID 04/28/17 [History] HYDROcodone/Acet 5/325 mg [[place] 5-325 mg] 1 tab PO Q4H PRN 04/28/17 [History] Ibuprofen [Motrin] 200 mg PO TID PRN 04/28/17 [History] Insulin Glargine,Hum.rec.anlog [[place]jeo Solostar] 6 units SQ DAILY 04/28/17 [ History] Lipase/Protease/Amylase [[place] 36,000 Units Capsule] 1 each PO AD 04/28/17 [ History] Lipase/Protease/Amylase [[place] 36,000 Units Capsule] 2 each PO TIDWM [History] Pantoprazole Sodium 40 mg PO DAILY 04/28/17 [History] Ropinirole HCl [Requip] 2 mg PO TID 04/28/17 [History] Sertraline [Zoloft] 50 mg PO DAILY 04/28/17 [History] TraZODone 100 mg PO HS 04/28/17 [History] 3 Allergy/AdvReac Type Severity Reaction Status Date / Time No Known Allergies Allergy Verified 04/22/17 18:21 Review of Systems Psychiatric: Reports: depression, anxiety Mental Status Exam Patient orientation: Yes Person, Yes Time, Yes Place Level of alertness: Alert Patient appearance: Appropriate Behavior: calm, cooperative Psychomotor activity: Normal Eye contact: Maintains Eye Contact Mood description: Anxious Affect description: congruent with mood Speech pattern: Coherent Speech volume: Normal Thought process: Intact Thought content: Yes Intact Attention span: Capable of Sustained Attention Memory description: Grossly Intact Patient reliability: Reliable Historian Intelligence estimate: Average Judgment: Good Insight: Full Results - Vital Signs Vital signs: Temp Pulse Resp BP Pulse Ox 98.1 F 59 14 153/71 100 04/29/17 11:17 04/29/17 11:17 04/29/17 11:17 04/29/17 11:17 04/29/17 11:17 - Labs Labs: Laboratory Last Values WBC 8.3 K/mcL (4.3-11.1) 04/29/17 06:29 RBC 4.75 M/mcL (4.19-5.50) 04/29/17 06:29 Hgb 11.2 g/dL (12.9-16.9) L D 04/29/17 06:29 Hct 34.7 % (37.5-50.1) L 04/29/17 06:29 MCV 73.1 fL (83.0-100.0) L 04/29/17 06:29 MCH 23.6 pg (28.0-33.3) L 04/29/17 06:29 MCHC 32.3 g/dL (31.6-35.5) 04/29/17 06:29 RDW 23.3 % (11.5-14.5) H 04/29/17 06:29 Plt Count 640 K/mcL (140-400) H 04/29/17 06:29 MPV 10.7 fL (9.4-12.4) 04/29/17 06:29 Immature Gran % 0.1 % (0-4) 04/29/17 06:29 Seg Neutrophils % 37.1 % 04/29/17 06:29 Lymphocytes % 45.4 % 04/29/17 06:29 Monocytes % 11.3 % 04/29/17 06:29 Eosinophils % 4.5 % 04/29/17 06:29 Basophils % 1.6 % 04/29/17 06:29 Neutrophils # 3.1 K/mcL (1.6-8.9) 04/29/17 06:29 Lymphocytes # 3.8 K/mcL (0.6-4.6) 04/29/17 06:29 Monocytes # 0.9 K/mcL (0.0-1.3) 04/29/17 06:29 Eosinophils # 0.4 K/mcL (0.0-0.6) 04/29/17 06:29 Basophils # 0.1 K/mcL (0.0-0.2) 04/29/17 06:29 Nucleated RBCs/100 WBC 0.6 /100 WBC (0) H 04/29/17 06:29 Platelet Estimate Marked Increase (Normal) H 04/29/17 06:29 Hypochromasia Present (Not Present) A 04/28/17 16:35 Poikilocytosis 1+ (Not Present) A 04/28/17 16:35 Anisocytosis 1+ (Not Present) A 04/29/17 06:29 Microcytosis Present (Not Present) A 04/29/17 06:29 Target Cells 3+ (Not Present) A 04/28/17 16:35 Jasmyn Cells 2+ (Not Present) A 04/29/17 06:29 PT 11.6 Seconds (9.4-12.1) 04/29/17 07:40 INR 1.1 04/29/17 07:40 Sodium 139 mEq/L (136-145) 04/29/17 06:29 Potassium 4.5 mEq/L (3.5-4.5) 04/29/17 06:29 Chloride 103 mEq/L (98-109) 04/29/17 06:29 Carbon Dioxide 23 mEq/L (19-29) 04/29/17 06:29 BUN 17 mg/dL (8-26) 04/29/17 06:29 Creatinine 0.75 mg/dL (0.72-1.25) 04/29/17 06:29 Est GFR ( Amer) > 60 (> 60) 04/29/17 06:29 Est GFR (Non-Af Amer) > 60 (> 60) 04/29/17 06:29 BUN/Creatinine Ratio 23 (6-26) 04/29/17 06:29 Glucose 96 mg/dL (70-99) 04/29/17 06:29 POC Glucose 80 (58-89) 04/29/17 11:14 Calculated Osmolality 289 (280-300) 04/29/17 06:29 Calcium 9.0 mg/dL (8.6-10.8) 04/29/17 06:29 Total Bilirubin 0.4 mg/dL (0.2-1.2) 04/28/17 16:35 Direct Bilirubin 0.2 mg/dL (0.0-0.5) 04/28/17 16:35 Indirect Bilirubin 0.2 mg/dL (0.0-1.2) 04/28/17 16:35 AST 44 Units/L (5-34) H 04/28/17 16:35 ALT 35 Units/L (0-55) 04/28/17 16:35 Alkaline Phosphatase 123 Units/L (38-126) 04/28/17 16:35 Troponin I 0.00 ng/mL (0-0.03) 04/29/17 07:40 Serum Total Protein 6.6 g/dL (6.0-8.3) 04/28/17 16:35 Albumin 3.7 g/dL (3.5-5.0) 04/28/17 16:35 Globulin 2.9 g/dL (2.4-3.5) 04/28/17 16:35 Albumin/Globulin Ratio 1.3 (1.1-2.2) 04/28/17 16:35 Urine Color Yellow (Yellow) 04/28/17 16:12 Urine Clarity Clear (Clear) 04/28/17 16:12 Urine pH 6.5 pH Units (5.0-8.0) 04/28/17 16:12 Ur Specific [place] 1.027 (1.010-1.025) H 04/28/17 16:12 Urine Protein Negative mg/dL (Neg-Trace) 04/28/17 16:12 Urine Glucose (UA) Normal mg/dL (Normal) 04/28/17 16:12 Urine Ketones Negative mg/dL (Negative) 04/28/17 16:12 Urine Blood Small (Negative) H 04/28/17 16:12 Urine Nitrite Negative (Negative) 04/28/17 16:12 Urine Bilirubin Negative (Negative) 04/28/17 16:12 Urine Urobilinogen Normal mg/dL (Normal) 04/28/17 16:12 Ur Leukocyte Esterase Negative (Negative) 04/28/17 16:12 Urine Microscopic RBC 30-50 per hpf (0-3) H 04/28/17 16:12 Urine Microscopic WBC 0-3 per hpf (0-3) 04/28/17 16:12 Ur Squamous Epith Cells Many per lpf (None-Few) H 04/28/17 16:12 Urine Bacteria None Seen per hpf (None-Few) 04/28/17 16:12 Hyaline Casts None Seen per lpf (None-Few) 04/28/17 16:12 Stool Occult Blood Positive (Negative) A 04/28/17 16:58 Salicylates < 5.0 mg/dL (15-30) L 04/28/17 16:35 Urine Opiates Screen Positive ng/mL (Xbxetq=629) H 04/28/17 16:12 Acetaminophen < 1.0 mcg/mL (10-30) L 04/28/17 16:35 Ur Barbiturates Screen Negative ng/mL (Eliovp=439) 04/28/17 16:12 Ur Phencyclidine Scrn Negative ng/mL (Cutoff=25) 04/28/17 16:12 Ur Amphetamines Screen Negative ng/mL (Acswop=8854) 04/28/17 16:12 U Benzodiazepines Scrn Negative ng/mL (Qwgmfo=158) 04/28/17 16:12 Urine Cocaine Screen Negative ng/mL (Cutoff= 300) 04/28/17 16:12 U Marijuana (THC) Screen Negative ng/mL (Cutoff = 50) 04/28/17 16:12 Ethyl Alcohol < 10 mg/dL (0-10) 04/28/17 16:35 Blood Type O POSITIVE 04/28/17 21:27 Antibody Screen NEGATIVE 04/28/17 21:27 Crossmatch See Detail 04/28/17 21:27 Consult Discharge Plan - Plan Referrals: NONE,PCP [Primary Care Provider] -
--- NOTE | 2017-04-29 13:06 | Anesthesia Evaluation PreOp ---
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: Other (chronic depression, admitted with melena, anemia and suicidal ideation) Other Medical History: Diabetes Type II (last accucheck 80), Other (on chronic pain medicine for chronic kidney stones/flank pain) Anesthesia History: No Prior Anesthetic Complications, Past Anesthesia Alcohol Use: none Drug use: none Medications and Allergies Clomipramine HCl [Anafranil] 25 mg PO HS 03/03/15 [History] Dicyclomine [Bentyl] 10 mg PO QID 04/28/17 [History] HYDROcodone/Acet 5/325 mg [[place] 5-325 mg] 1 tab PO Q4H PRN 04/28/17 [History] Ibuprofen [Motrin] 200 mg PO TID PRN 04/28/17 [History] Insulin Glargine,Hum.rec.anlog [Toujeo Solostar] 6 units SQ DAILY 04/28/17 [ History] Lipase/Protease/Amylase [[place] Dr 36,000 Units Capsule] 1 each PO AD 04/28/17 [ History] Lipase/Protease/Amylase [[place] Dr 36,000 Units Capsule] 2 each PO TIDWM [History] Pantoprazole Sodium 40 mg PO DAILY 04/28/17 [History] Ropinirole HCl [Requip] 2 mg PO TID 04/28/17 [History] Sertraline [Zoloft] 50 mg PO DAILY 04/28/17 [History] TraZODone 100 mg PO HS 04/28/17 [History] 3 Allergy/AdvReac Type Severity Reaction Status Date / Time No Known Allergies Allergy Verified 04/22/17 18:21 - Meds/Allergy Pre-op Review Medications Reviewed: Yes Allergies Reviewed: Yes Beta Blockers on Current Med List: No Anesthesia Results - Labs 04/29/17 06:29 04/29/17 06:29 - Imaging EKG: image reviewed (sinus rhythm) Anesthesia Exam Selected Entries 04/29/17 11:17 Temperature 98.1 F Pulse Rate 59 Respiratory Rate 14 Blood Pressure 153/71 O2 Sat by Pulse Oximetry 100 Laboratory Tests 04/29/17 06:29 Hgb 11.2 L D Hct 34.7 L Plt Count 640 H Weight: 59 kg. NPO (# of Hours): over 8 hours - HEENT Pupil (Motor): Pupils equal Mallampati: I Teeth: Normal Oral Opening: Greater than 3 - Cardiac Rhythm: Regular Murmur: None - Pulmonary Breath Sounds: bilateral Clear Respiratory Effort: Symmetrical Anesthesia Assess/Plan ASA Score: 2 Modified Calhoun Scale for Level of Consciousness: Cooperative, oriented, and tranquil Anesthetic Plan: MAC Monitoring Plan: Standard Monitors Recovery Plan: Other (Discussed MAC anesthesia, agreed to proceed, consent signed.)
[2017-04-29] MEDS ORDERED: *HR* Propofol 200 MG/20 ML VIAL IVP ONE (13:28)
[2017-04-29] MEDS ORDERED: SODIUM CHLORIDE/NAHCO3/KCL/PEG 4,000 ML SOLN.RECON PO ONE (15:01)
[2017-04-29 17:19] LABS: Hematocrit 33.3 % (37.5-50.1); Hemoglobin 10.5 g/dL (12.9-16.9); Mean Corpuscular HGB Conc 31.5 g/dL (31.6-35.5); Mean Corpuscular Volume 72.9 fL (83.0-100.0); Mean Platelet Volume 10.3 fL (9.4-12.4); Nucleated Red Blood Cells 0.8 /100 WBC (0); Platelet Count 609 K/mcL (140-400); Red Blood Count 4.57 M/mcL (4.19-5.50); Red Cell Distribution Width 22.5 % (11.5-14.5)
[2017-04-29 17:24] LABS: BUN/Creatinine Ratio 20 (6-26); Blood Urea Nitrogen 15 mg/dL (8-26); Calcium 9.2 mg/dL (8.6-10.8); Carbon Dioxide 26 mEq/L (19-29); Chloride 105 mEq/L (98-109); Glucose 75 mg/dL (70-99); Osmolality,Calculated 288 (280-300); Potassium 4.2 mEq/L (3.5-4.5); Sodium 139 mEq/L (136-145); eGFR For African Americans > 60 (> 60); eGFR For Non-African Americans > 60 (> 60)
[2017-04-29 18:02] LABS: Anisocytosis 2+ (Not Present); Basophils # 0.2 K/mcL (0.0-0.2); Eosinophils # 0.2 K/mcL (0.0-0.6); Lymphocytes # 3.5 K/mcL (0.6-4.6); Microcytosis Present (Not Present); Monocytes # 1.4 K/mcL (0.0-1.3); Neutrophils # 2.7 K/mcL (1.6-8.9); Platelet Estimate Marked Increase (Normal)
[2017-04-29] MEDS: traZODone 50 MG TABLET PO SCH (22:12)
[2017-04-30] MEDS: Pantoprazole 80 MG in 0.9 % Sodium Chloride 250 ML IVC SCH (00:15)
[2017-04-30] MEDS: 0.9 % Sodium Chloride 1,000 ML IVC SCH ×3 (03:40→22:18)
[2017-04-30] MEDS: *HR* HYDROmorphone (PF) 1 MG/ML SYRINGE IVP PRN ×5 (03:40→19:42)
[2017-04-30 04:55] LABS: BUN/Creatinine Ratio 16 (6-26); Basophils # 0.1 K/mcL (0.0-0.2); Basophils % 2.1 %; Blood Urea Nitrogen 12 mg/dL (8-26); Calcium 8.8 mg/dL (8.6-10.8); Carbon Dioxide 20 mEq/L (19-29); Chloride 103 mEq/L (98-109); Eosinophils # 0.3 K/mcL (0.0-0.6); Eosinophils % 5.4 %; Glucose 121 mg/dL (70-99); Hematocrit 35.5 % (37.5-50.1); Hemoglobin 11.2 g/dL (12.9-16.9); Immature Granulocytes % 0.2 % (0-4); Lymphocytes # 2.6 K/mcL (0.6-4.6); Lymphocytes % 41.9 %; Mean Corpuscular HGB Conc 31.5 g/dL (31.6-35.5); Mean Corpuscular Hemoglobin 23.3 pg (28.0-33.3); Mean Corpuscular Volume 73.8 fL (83.0-100.0); Mean Platelet Volume 10.7 fL (9.4-12.4); Monocytes # 0.9 K/mcL (0.0-1.3); Monocytes % 13.6 %; Neutrophils # 2.3 K/mcL (1.6-8.9); Nucleated Red Blood Cells 0.6 /100 WBC (0); Osmolality,Calculated 285 (280-300); Platelet Count 599 K/mcL (140-400); Potassium 4.2 mEq/L (3.5-4.5); Red Blood Count 4.81 M/mcL (4.19-5.50); Red Cell Distribution Width 23.3 % (11.5-14.5); Segmented Neutrophils % 36.8 %; Sodium 137 mEq/L (136-145); eGFR For African Americans > 60 (> 60); eGFR For Non-African Americans > 60 (> 60)
[2017-04-30 06:15] LABS: Anisocytosis 3+ (Not Present); Burr Cells 2+ (Not Present); Hypochromasia Present (Not Present); Target Cells 2+ (Not Present); Tear Drop Cells 2+ (Not Present)
[2017-04-30 06:16] LABS: Acanthocytes 1+ (Not Present)
[2017-04-30 06:17] LABS: Platelet Estimate Marked Increase (Normal)
[2017-04-30] MEDS: Pantoprazole 40 MG VIAL IVP SCH ×2 (06:24→18:58)
[2017-04-30] MEDS: Insulin LISPRO 300 UNITS/3 ML VIAL SQ SCH ×4 (08:03→22:20)
[2017-04-30] MEDS ORDERED: 0.9 % Sodium Chloride 1,000 ML IVC SCH (14:00)
[2017-04-30] MEDS ORDERED: Propofol 500 MG/50 ML INFUS..BTL ONE (14:21)
[2017-04-30] MEDS ORDERED: Lidocaine -MPF 2% 2 ML VIAL ONE (14:21)
[2017-04-30] MEDS ORDERED: SODIUM CHLORIDE/NAHCO3/KCL/PEG 4,000 ML SOLN.RECON PO ONE (14:42)
[2017-04-30] MEDS ORDERED: Polyethylene Glycol 3350 255 GM POWDER PO ONE (15:18)
--- NOTE | 2017-04-30 18:40 | Internal Med Progress Note ---
Date of Encounter: 04/30/17 Time of Encounter: 13:00 - Assessment and plan (1) Depression Current Visit: No Status: Chronic Assessment and plan: We will continue with Zoloft, clomipramine, trazodone. Appreciate psychiatry recommendations. Qualifiers: Depression Type: major depressive disorder Major depression recurrence: recurrent Active/Remission status: in partial remission Qualified Code(s): F33.41 - Major depressive disorder, recurrent, in partial remission (2) Suicidal ideations Current Visit: Yes Status: Acute Assessment and plan: Currently not suicidal. Cleared by psychiatry. I appreciate their recommendations. I will discontinue one-to-one safety observation. He will require outpatient follow-up, does not need inpatient psychiatric admission. (3) Renal colic Current Visit: No Status: Acute Assessment and plan: Supportive care with pain control. (4) GI bleed Current Visit: Yes Status: Acute Assessment and plan: Hemoglobin is stable today. Plan for colonoscopy today. 04/29/2017: Melena & hematochezia for about a month Weakness + lightheadedness No regular NSAID use Pantoprazole for GERD at home, continue Stool occult positive Hemoglobin increased from 7.8 --> 11.2 following 2 units PRBCs Appreciate gastroenterology input, plan for EGD Qualifiers: GI bleed type/associated pathology: unspecified gastrointestinal hemorrhage type Qualified Code(s): K92.2 - Gastrointestinal hemorrhage, unspecified - Subjective Interval history: Patient denies suicidal ideation. He is calm and cooperative. Abdominal pain has improved. Denies any nausea or vomiting. - Constitutional Vitals: Temp Pulse Resp BP Pulse Ox 97.8 F 61 14 156/79 99 04/30/17 15:01 04/30/17 15:01 04/30/17 15:01 04/30/17 15:01 04/30/17 15:01 General appearance: Present: mild distress, A&O X 3 - Eye Eye exam: Present: PERRL, conjuntiva pink, sclera anicteric Pupils: Present: PERRL - Respiratory Respiratory exam: Present: CTAB. Absent: accessory muscle use, rales, rhonchi, wheezes - Cardiovascular Cardiovascular exam: Present: RRR, +S1, +S2. Absent: diastolic murmur, gallop, rubs, systolic murmur - GI/Abdominal GI/Abdominal exam: Present: normal bowel sounds, soft, no peritoneal signs. Absent: distended, tenderness Internal Medicine: Result - Labs CBC & Chem 7: 04/30/17 04:02 04/30/17 04:02 Labs: Short CBC 04/30/17 Range/Units 04:02 WBC 6.3 (4.3-11.1) K/mcL Hgb 11.2 L (12.9-16.9) g/dL Hct 35.5 L (37.5-50.1) % Plt Count 599 H (140-400) K/mcL Neutrophils # 2.3 (1.6-8.9) K/mcL BMP 04/30/17 04:02 Sodium 137 Potassium 4.2 Chloride 103 Carbon Dioxide 20 BUN 12 Creatinine 0.75 Glucose 121 H Calcium 8.8 - ABG Interpretation ABG results: PT/INR, D-dimer PT 11.6 Seconds (9.4-12.1) 04/29/17 07:40 Consult Discharge Plan - Plan Referrals: NONE,PCP [Primary Care Provider] -
[2017-04-30] MEDS: traZODone 50 MG TABLET PO SCH (22:20)
[2017-05-01] MEDS: *HR* HYDROcodone/Acet 5/325 mg TABLET PO PRN ×2 (01:27→18:49)
[2017-05-01] MEDS: *HR* HYDROmorphone (PF) 1 MG/ML SYRINGE IVP PRN ×3 (02:51→15:57)
[2017-05-01] MEDS: 0.9 % Sodium Chloride 1,000 ML IVC SCH ×2 (04:15→17:44)
[2017-05-01] MEDS: Pantoprazole 40 MG VIAL IVP SCH ×2 (05:37→17:43)
[2017-05-01 06:27] LABS: Basophils # 0.1 K/mcL (0.0-0.2); Basophils % 1.2 %; Eosinophils # 0.1 K/mcL (0.0-0.6); Eosinophils % 0.8 %; Hematocrit 31.8 % (37.5-50.1); Hemoglobin 10.1 g/dL (12.9-16.9); Immature Granulocytes % 0.2 % (0-4); Lymphocytes # 2.8 K/mcL (0.6-4.6); Lymphocytes % 43.6 %; Mean Corpuscular HGB Conc 31.8 g/dL (31.6-35.5); Mean Corpuscular Hemoglobin 23.4 pg (28.0-33.3); Mean Corpuscular Volume 73.6 fL (83.0-100.0); Monocytes # 0.7 K/mcL (0.0-1.3); Monocytes % 10.3 %; Neutrophils # 2.8 K/mcL (1.6-8.9); Nucleated Red Blood Cells 0.5 /100 WBC (0); Platelet Count 481 K/mcL (140-400); Red Blood Count 4.32 M/mcL (4.19-5.50); Red Cell Distribution Width 23.1 % (11.5-14.5); Segmented Neutrophils % 43.9 %
[2017-05-01 06:35] LABS: BUN/Creatinine Ratio 13 (6-26); Blood Urea Nitrogen 9 mg/dL (8-26); Calcium 8.4 mg/dL (8.6-10.8); Carbon Dioxide 23 mEq/L (19-29); Chloride 103 mEq/L (98-109); Glucose 112 mg/dL (70-99); Osmolality,Calculated 287 (280-300); Sodium 139 mEq/L (136-145); eGFR For African Americans > 60 (> 60); eGFR For Non-African Americans > 60 (> 60)
[2017-05-01 06:46] LABS: Anisocytosis 2+ (Not Present)
[2017-05-01 06:47] LABS: Acanthocytes 1+ (Not Present); Hypochromasia Present (Not Present); Platelet Estimate Increased (Normal); Target Cells 2+ (Not Present)
[2017-05-01 06:48] LABS: Microcytosis Present (Not Present); Schistocytes 1+ (Not Present)
--- NOTE | 2017-05-01 08:48 | Internal Med Progress Note ---
<Walt Morales - Last Filed: 05/01/17 17:35> Date of Encounter: 05/01/17 Time of Encounter: 08:46 - Assessment and plan (1) GI bleed Current Visit: Yes Status: Acute Assessment and plan: Hemoglobin remains stable today. EGD showed small nonbleeding erosions in the lower esophagus and mildly erythematous mucosa. Per patient report, colonoscopy attempted yesterday but there was poor bowel prep and they will try to repeat today after further bowel prep. Repeat colonoscopy today showed stools with old blood stains and mild internal hemorrhoids. Will repeat hemoglobin & hematocrit and if stable plan for discharge 04/29/2017: Melena & hematochezia for about a month Weakness + lightheadedness No regular NSAID use Pantoprazole for GERD at home, continue Stool occult positive Hemoglobin increased from 7.8 --> 11.2 following 2 units PRBCs Appreciate gastroenterology input, plan for EGD Qualifiers: GI bleed type/associated pathology: unspecified gastrointestinal hemorrhage type Qualified Code(s): K92.2 - Gastrointestinal hemorrhage, unspecified (2) Depression Current Visit: No Status: Chronic Assessment and plan: We will continue with Zoloft, clomipramine, trazodone. Appreciate psychiatry recommendations. Qualifiers: Depression Type: major depressive disorder Major depression recurrence: recurrent Active/Remission status: in partial remission Qualified Code(s): F33.41 - Major depressive disorder, recurrent, in partial remission (3) Renal colic Current Visit: No Status: Acute Assessment and plan: Per patient report he passed 4 kidney stones, pathology pending Continue spportive care with pain control (4) Suicidal ideations Current Visit: Yes Status: Acute Assessment and plan: Currently not suicidal. Cleared by psychiatry. I appreciate their recommendations. I will discontinue one-to-one safety observation. He will require outpatient follow-up, does not need inpatient psychiatric admission - Subjective Interval history: 46-year-old male admitted 04/28 here for flank pain, GI bleed, and suicidal ideations. 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 Patient told ER physician that he ran out of his hydrocodone for chronic kidney stones and would kill himself if sent home without refill. Also reported blood in stool and dark stools x1 month. EGD and colonoscopy initially ordered but never accomplished. CT abdomen/pelvis 04/28 showed bilateral nonobstructive nephrolithiasis but no acute findings within abdomen or pelvis, no obstructive uropathy Patient seen and examined at bedside this morning. He reports his pain is currently minimal. He denies chest pain, shortness of breath or other new symptoms - Constitutional Vitals: Temp Pulse Resp BP Pulse Ox 98.3 F 66 20 151/73 98 05/01/17 07:28 05/01/17 07:28 05/01/17 07:28 05/01/17 07:28 05/01/17 07:28 General appearance: Present: mild distress, A&O X 3 - Respiratory Respiratory exam: Present: CTAB. Absent: accessory muscle use, rales, rhonchi, wheezes - Cardiovascular Cardiovascular exam: Present: RRR, +S1, +S2. Absent: diastolic murmur, gallop, rubs, systolic murmur - GI/Abdominal GI/Abdominal exam: Present: normal bowel sounds, soft, no peritoneal signs. Absent: distended, tenderness - Extremities Exam Extremities exam: Present: warm, radial pulses palpable and symmetrical. Absent : calf tenderness, cyanotic, pedal edema - Neurological Exam Neurological exam: Present: alert, oriented X3, no focal deficits Internal Medicine: Result - Labs CBC & Chem 7: 05/01/17 05:36 05/01/17 05:36 Labs: Short CBC 05/01/17 Range/Units 05:36 WBC 6.4 (4.3-11.1) K/mcL Hgb 10.1 L (12.9-16.9) g/dL Hct 31.8 L (37.5-50.1) % Plt Count 481 H (140-400) K/mcL Neutrophils # 2.8 (1.6-8.9) K/mcL BMP 05/01/17 05:36 Sodium 139 Potassium 4.0 Chloride 103 Carbon Dioxide 23 BUN 9 Creatinine 0.71 L Glucose 112 H Calcium 8.4 L - ABG Interpretation ABG results: PT/INR, D-dimer PT 11.6 Seconds (9.4-12.1) 04/29/17 07:40 Consult Discharge Plan - Plan Referrals: NONE,PCP [Primary Care Provider] - <Billy Ponce - Last Filed: 05/01/17 18:42> Date of Encounter: 05/01/17 - Assessment and plan (1) Depression Current Visit: No Status: Chronic Qualifiers: Depression Type: major depressive disorder Major depression recurrence: recurrent Active/Remission status: in partial remission Qualified Code(s): F33.41 - Major depressive disorder, recurrent, in partial remission (2) Suicidal ideations Current Visit: Yes Status: Acute (3) Renal colic Current Visit: No Status: Acute (4) GI bleed Current Visit: Yes Status: Acute Qualifiers: GI bleed type/associated pathology: unspecified gastrointestinal hemorrhage type Qualified Code(s): K92.2 - Gastrointestinal hemorrhage, unspecified - Constitutional Vitals: Temp Pulse Resp BP Pulse Ox 98.1 F 62 15 130/69 94 05/01/17 18:34 05/01/17 18:34 05/01/17 18:34 05/01/17 18:34 05/01/17 18:34 Internal Medicine: Result - Labs CBC & Chem 7: 05/01/17 17:48 05/01/17 05:36 Labs: Short CBC 05/01/17 05/01/17 Range/Units 05:36 17:48 WBC 6.4 6.7 (4.3-11.1) K/mcL Hgb 10.1 L 10.9 L (12.9-16.9) g/dL Hct 31.8 L 34.5 L (37.5-50.1) % Plt Count 481 H 478 H (140-400) K/mcL Neutrophils # 2.8 (1.6-8.9) K/mcL BMP 05/01/17 05:36 Sodium 139 Potassium 4.0 Chloride 103 Carbon Dioxide 23 BUN 9 Creatinine 0.71 L Glucose 112 H Calcium 8.4 L - ABG Interpretation ABG results: PT/INR, D-dimer PT 11.6 Seconds (9.4-12.1) 04/29/17 07:40 - Attending Attestation I conducted a face to face diagnostic evaluation of this patient and my medical decision-making was reviewed with the Resident Physician, Dr Walt Morales. I agree with the documented findings, disposition and treatment plan as described except to the extent set forth below: We will check repeat CBC in the afternoon.
[2017-05-01] MEDS ORDERED: *HR* Propofol 200 MG/20 ML VIAL IVP ONE (15:15)
[2017-05-01] MEDS ORDERED: Propofol 500 MG/50 ML INFUS..BTL ONE (15:15)
[2017-05-01] MEDS: Insulin LISPRO 300 UNITS/3 ML VIAL SQ SCH ×2 (16:12→18:42)
--- NOTE | 2017-05-01 16:26 | Anesthesia Evaluation Post Op ---
Date of Encounter: 05/01/17 Time of Encounter: 16:25 - Vital Signs Vital Signs: Vital Signs/O2 Sat, Most Current Temp Pulse Resp BP Pulse Ox 97.5 F L 60 20 119/68 99 05/01/17 15:45 05/01/17 15:45 05/01/17 15:45 05/01/17 15:45 05/01/17 15:45 - Lungs Lungs: Clear Ascult./Percussion - Airway Airway: Non-obstructed - Cardiovascular Regular Rate - Mental Status Mental Status: Alert & Oriented, Answers Appropriately - Pain Pain Scale: 0 Pain Scale used: Numeric (1 - 10) - Nausea Vomiting Nausea Vomiting: Not Present - Hydration Hydration: NPO, Has not voided - Discharge PostOp Status: Transfer Patient to floor
[2017-05-01 18:10] LABS: Basophils # 0.1 K/mcL (0.0-0.2); Basophils % 2.1 %; Eosinophils % 0.3 %; Hematocrit 34.5 % (37.5-50.1); Hemoglobin 10.9 g/dL (12.9-16.9); Immature Granulocytes % 0.3 % (0-4); Lymphocytes # 3.4 K/mcL (0.6-4.6); Lymphocytes % 50.8 %; Mean Corpuscular HGB Conc 31.6 g/dL (31.6-35.5); Mean Corpuscular Hemoglobin 23.2 pg (28.0-33.3); Mean Corpuscular Volume 73.6 fL (83.0-100.0); Mean Platelet Volume 10.7 fL (9.4-12.4); Monocytes # 0.9 K/mcL (0.0-1.3); Monocytes % 13.1 %; Neutrophils # 2.2 K/mcL (1.6-8.9); Nucleated Red Blood Cells 0.9 /100 WBC (0); Platelet Count 478 K/mcL (140-400); Red Blood Count 4.69 M/mcL (4.19-5.50); Red Cell Distribution Width 23.6 % (11.5-14.5); Segmented Neutrophils % 33.4 %
[2017-05-01 18:35] VITALS: BP 130/69
--- NOTE | 2017-05-01 18:47 | Discharge Summary ---
Date of Encounter: 05/01/17 Time of Encounter: 18:43 - Discharge Diagnosis (1) Depression Priority: Secondary Status: Chronic Qualifiers: Depression Type: major depressive disorder Major depression recurrence: recurrent Active/Remission status: in partial remission Qualified Code(s): F33.41 - Major depressive disorder, recurrent, in partial remission (2) Suicidal ideations Priority: Secondary Status: Acute (3) Renal colic Priority: Secondary Status: Acute (4) GI bleed Priority: Primary Status: Acute Qualifiers: GI bleed type/associated pathology: unspecified gastrointestinal hemorrhage type Qualified Code(s): K92.2 - Gastrointestinal hemorrhage, unspecified (5) Iron deficiency anemia Priority: Secondary Status: Acute Qualifiers: Iron deficiency anemia type: chronic blood loss Qualified Code(s): D50.0 - Iron deficiency anemia secondary to blood loss (chronic) (6) Melena Priority: Secondary Status: Acute - Discharge Medications Prescriptions: Ferrous Sulfate 325 mg PO BIDWM #60 tablet Home Medications: Clomipramine HCl [Anafranil] 25 mg PO HS 03/03/15 [History] Dicyclomine [Bentyl] 10 mg PO QID 04/28/17 [History] HYDROcodone/Acet 5/325 mg [[place] 5-325 mg] 1 tab PO Q4H PRN 04/28/17 [History] Ibuprofen [Motrin] 200 mg PO TID PRN 04/28/17 [History] Insulin Glargine,Hum.rec.anlog [Toujeo Solostar] 6 units SQ DAILY 04/28/17 [ History] Lipase/Protease/Amylase [Lyric Her 36,000 Units Capsule] 1 each PO AD 04/28/17 [ History] Lipase/Protease/Amylase [Lyric Her 36,000 Units Capsule] 2 each PO TIDWM [History] Pantoprazole Sodium 40 mg PO DAILY 04/28/17 [History] Ropinirole HCl [Requip] 2 mg PO TID 04/28/17 [History] Sertraline [Zoloft] 50 mg PO DAILY 04/28/17 [History] TraZODone 100 mg PO HS 04/28/17 [History] Ferrous Sulfate 325 mg PO BIDWM #60 tablet 05/01/17 [Rx] Allergies/Adverse Reactions: 3 Allergy/AdvReac Type Severity Reaction Status Date / Time No Known Allergies Allergy Verified 04/22/17 18:21 Date of admission: 04/29/17 03:48 Primary care physician: PCP NONE - Patient Status Disposition: Home, Self-Care Condition: Fair Functional capacity at discharge: independent ambulation Overall status at discharge: patient is back to baseline - Discharge Instructions Follow Up With: NONE,PCP [Primary Care Provider] - Yoseph Theodore MD [Partnered Physician] - Additional Instructions: Follow-up with your PCP within 10 days of discharge. If he did not have a PCP please call the resident clinic to arrange for a follow-up within the next 10 days. Have your PCP check your blood work prior to your next office visit. Follow-up with psychological counselor as scheduled. - Diet and Activity Activity: increase activity as tolerated Diet: advance to your usual diet Interval History: Second colonoscopy done today showed no source of bleeding. Hemoglobin has been stable. Patient tolerated diet. Melena has resolved. He will be discharged home with close follow-up with GI. Hospital course: Mr. Naidu is a 46 year old male who presented to this hospital with suicidal ideation. He has chronic recurrent renal colic. Evaluation in the emergency department he was found to be anemic. Hemoccult was positive. He was referred for medical admission. Psychiatry evaluated the patient and cleared him for discharge and close follow-up with outpatient counseling. Recommended continuing his current outpatient antidepressant medication regimen. For GI bleed he had 2 units of PRBC transfused. He had appropriate response. He had EGD which showed esophageal erosion, nonbleeding. Colonoscopy showed no source of bleeding. His hemoglobin remained stable posttransfusion and he will be discharged home. He will be started on iron tablet and referred to outpatient gastroenterologic GI for close follow-up. - Time Spent with Patient Total time spent providing and/or coordinating discharge services: Greater than 30 minutes - Constitutional Vitals: Temp Pulse Resp BP Pulse Ox 98.1 F 62 15 130/69 94 05/01/17 18:34 05/01/17 18:34 05/01/17 18:34 05/01/17 18:34 05/01/17 18:34 General appearance: Present: mild distress, A&O X 3 - Respiratory Respiratory exam: Present: CTAB. Absent: accessory muscle use, rales, rhonchi, wheezes - Cardiovascular Cardiovascular exam: Present: RRR, +S1, +S2. Absent: diastolic murmur, gallop, rubs, systolic murmur - GI/Abdominal GI/Abdominal exam: Present: normal bowel sounds, soft, no peritoneal signs. Absent: distended, tenderness - Extremities Exam Extremities exam: Present: warm, radial pulses palpable and symmetrical. Absent : calf tenderness, cyanotic, pedal edema
[2017-05-01 18:56] LABS: Anisocytosis 2+ (Not Present); Hypochromasia Present (Not Present); Platelet Estimate Increased (Normal); Target Cells 1+ (Not Present)
[2017-05-01 19:00] LABS: Burr Cells 1+ (Not Present)
[2017-05-01 19:01] LABS: % Iron Saturation 4 % (20-55); Iron 17 mcg/dL (65-175); Transferrin 327 mg/dL (174-364)
== END 2017-05-01 19:20 | disposition home or self-care (01) | DRG 254 ==
LOC: 2ANU 15:10 → EMEROO 15:10 → 2ANU 19:10 → SUATTDRO 04-29 03:48 → 3ANU 04-29 09:03
PROVIDERS: ADMIT Internal Medicine; ATTEND Internal Medicine
PROC: ENDOEBX (2017-04-29 13:10)

== ENCOUNTER 2017-05-06 04:34 | Observation (INO) ==
--- NOTE | 2017-05-06 04:46 | Emergency Department Note ---
Disposition Clinical Impression: Suicide attempt Deliberate medication overdose Qualifiers: Encounter type: initial encounter Qualified Code(s): T50.902A - Poisoning by unspecified drugs, medicaments and biological substances, intentional self-harm , initial encounter Disposition: Admitted As Inpatient Condition: Undetermined Referrals: NONE,PCP [Primary Care Provider] - Forms: ED Satisfaction Letter Time of Disposition: 05:38 General Adult HPI - General Chief complaint: ED Psychiatric Symptoms Stated complaint: suicidal Time Seen by Provider: 05/06/17 04:40 Source: patient, EMS Mode of arrival: EMS Limitations: no limitations Nursing Notes Reviewed: Yes Vital Signs Reviewed: Yes - History of Present Illness HPI Narrative: 46-year-old male with history of suicidal ideation and previous admissions as well as history of nephrolithiasis arrives [facility] emergency department after overdosing on trazodone. The patient took 10 tablets of 50 mg trazodone. He states that he wanted to kill himself. The patient was recently discharged from the emergency department for concern for SI. Apparently he did not meet criteria to be admitted to [facility]. The patient was discharged home. In addition the patient states that he was initially here for what he was complaining of kidney stones. The patient does have nephrolithiasis without obstructing or ureteral stone. The patient denies any other complaints and did not take any other medications. He states that he did it for the sole purpose of "ending it all". Onset (ago): Just [employer] Pain Scale: 7 Improves with: nothing Worsens with: nothing Associated symptoms: Reports: denies other symptoms Treatments Prior to Arrival: none - Related Data Home Medications Medication Instructions Recorded Confirmed Clomipramine HCl [Anafranil] 25 mg PO HS 03/03/15 05/03/17 Dicyclomine [Bentyl] 10 mg PO QID 04/28/17 05/03/17 HYDROcodone/Acet 5/325 mg [[place] 1 tab PO Q4H PRN 04/28/17 05/03/17 5-325 mg] Ibuprofen [Motrin] 200 mg PO TID PRN 04/28/17 05/03/17 Insulin Glargine,Hum.rec.anlog 6 units SQ DAILY 04/28/17 05/03/17 [Sherif Cortez] Lipase/Protease/Amylase [Creon Dr 1 each PO AD 04/28/17 05/03/17 36,000 Units Capsule] Lipase/Protease/Amylase [Lyric Her 2 each PO TIDWM 04/28/17 05/03/17 36,000 Units Capsule] Pantoprazole Sodium 40 mg PO DAILY 04/28/17 05/03/17 Ropinirole HCl [Requip] 2 mg PO TID 04/28/17 05/03/17 Sertraline [Zoloft] 50 mg PO DAILY 04/28/17 05/03/17 TraZODone 100 mg PO HS 04/28/17 05/03/17 Previous Rx's Medication Instructions Recorded Ferrous Sulfate 325 mg PO BIDWM #60 tablet 05/01/17 Allergies Allergy/AdvReac Type Severity Reaction Status Date / Time No Known Allergies Allergy Verified 05/05/17 10:38 All systems ED: reviewed and negative except as stated. Constitutional: Denies: fever, chills, weakness ENT ED: Denies: congestion Cardiovascular: Reports: chest pain Respiratory: Denies: dyspnea Gastrointestinal: Denies: abdominal pain, nausea, vomiting Genitourinary: Denies: urgency Musculoskeletal: Reports: back pain. Denies: neck pain, arthralgia, myalgia Integumentary: Denies: rash Neurological: Denies: headache Psychiatric: Reports: depression, suicidal thoughts. Denies: anxiety, homicidal thoughts, auditory hallucinations, visual hallucinations Past Medical History - Past Medical History Attestation: Yes The following information was validated with the patient. Source: patient Medical history: Reports: diabetes, kidney stones Surgical history: Reports: cholecystectomy, other (pancreactomy) Psychiatric history: Reports: anxiety, depression - Social History Smoking Status: Never smoker Smokeless Tobacco Status: No Alcohol use: Reports: none Drug use: Reports: none Physical Exam - General Limitations: no limitations General appearance: alert, in no apparent distress - Head Head exam: atraumatic, normocephalic, normal inspection - Eye Eye exam: Present: normal appearance, PERRL, EOMI - ENT ENT exam: normal exam, normal oropharynx, mucous membranes moist - Neck Neck exam: Present: normal inspection, full ROM, trachea midline - Chest Chest inspection: Present: normal inspection, symmetric chest wall rise - Cardiovascular Cardiovascular exam: Present: tachycardia - Abdominal Exam Abdominal exam: Present: soft, Non-Tender - Extremities Exam Extremities exam: Present: normal inspection, full ROM. Absent: tenderness, pedal edema Course - Consultations Consultation #1: Spoke to the Poison Control [facility] who had recommendation of symptomatic monitoring. In addition they noted it to get a acetaminophen, salicylate, blood alcohol level, and EKG. Time: 04:58 Vital Signs Temperature 98.1 F 05/06/17 04:37 Pulse Rate 106 05/06/17 04:37 Respiratory Rate 18 05/06/17 04:37 Blood Pressure 175/98 05/06/17 04:37 O2 Sat by Pulse Oximetry 98 05/06/17 04:37 Temperature 98.1 F 05/06/17 04:37 Pulse Rate 106 05/06/17 04:37 Respiratory Rate 18 05/06/17 04:37 Blood Pressure 175/98 05/06/17 04:37 O2 Sat by Pulse Oximetry 98 05/06/17 04:37 Oxygen Delivery Oxygen Delivery Room Air Medical Decision Making - MDM Narrative Medical decision making narrative: Workup in the emergency department demonstrates no acute process. The patient had no prolongation of QTC. We will admit the patient to the hospitalist for observation. Patient accepted by Dr. Robledo. - Medical Records Medical records reviewed: Yes I reviewed the patient's medical records. - Lab Data Lab Results 05/06/17 Range/Units 05:26 Salicylates < 5.0 L (15-30) mg/dL Acetaminophen < 1.0 L (10-30) mcg/mL Ethyl Alcohol < 10 (0-10) mg/dL - EKG Data EKG #1 EKG attestation: Yes I reviewed and interpreted this EKG. EKG results narrative: Heart rate 84 bpm. CA interval 134 ms. QTc 445 ms. Normal sinus rhythm. No ST elevation or ST depression noted. EKG similar to prior CT EKG from 2016. No acute changes. Attestation Statement - Attestation Attestation: Dr. Owusu note: Patient was seen in conjunction with resident Dr. Sool; please see history of documentation. [id number] time with the patient I agree with patient's treatment and disposition. Patient was just in the ER earlier today for a complaint of kidney stones which he does not clinically have. His last CT scan to this facility did not show any signs of a ureteral stone. Patient apparently went home and he presented is not a handful of trazodone. Procardia XL facility monitor and monitored medically. Admits to problem with taking too many [place] last month
[2017-05-06 05:48] LABS: Acetaminophen < 1.0 mcg/mL (10-30); Ethanol < 10 mg/dL (0-10); Salicylate < 5.0 mg/dL (15-30)
[2017-05-06] MEDS ORDERED: Naloxone 0.4 MG/ML INJ IVP PRN (06:52)
[2017-05-06] MEDS ORDERED: Ondansetron 4 MG/2 ML VIAL IVP PRN (06:52)
[2017-05-06] MEDS: rOPINIRole 1 MG TABLET PO SCH ×3 (09:37→20:50)
--- NOTE | 2017-05-06 09:38 | Internal Med History&Physical ---
Date of Encounter: 05/06/17 Time of Encounter: 08:30 Assessment and Plan (1) Suicide attempt Current visit: Yes Status: Acute Patient has taken multiple pills of trazodone with intention of self-harm. Consult psychiatric for evaluation. Patient does continue to report suicidal ideation. (2) Deliberate medication overdose Current visit: Yes Status: Acute Intentional overdose with trazodone 50 mg tablets-10 pills. Patient appears to be stabilized at this time. Not having any increased somnolence. Slightly prolonged QTC. Observation. Poison control has been notified. We will follow recommendations. Qualifiers: Encounter type: initial encounter Qualified Code(s): T50.902A - Poisoning by unspecified drugs, medicaments and biological substances, intentional self- harm, initial encounter (3) Anemia Current visit: Yes Status: Chronic Chronic anemia. Hemoglobin levels at baseline. 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 We will place patient on basal insulin and sliding scale regimen. Monitor blood sugars closely. Diabetic diet. Qualifiers: Diabetes mellitus type: due to underlying condition Diabetes mellitus complication status: with hyperglycemia Diabetes mellitus continuous churn buttermaker insulin use: with continuous churn buttermaker use Qualified Code(s): E08.65 - Diabetes mellitus due to underlying condition with hyperglycemia; Z79.4 - USP (current) use of insulin; Z79.4 - exterminator helper (current) use of insulin; Z79.4 - exterminator helper (current ) use of insulin; Z79.4 - exterminator helper (current) use of insulin Internal Medicine - H&P: HPI Chief complaint: Intentional overdose with trazodone Admitted From: Emergency Dept Plans for Post Hospital Care: Transfer Psych Facility History of present illness: Mr. Naidu is a 46 year old male patient here for nephrolithiasis and reports persistent and recurrent flank pain due to nephrolithiasis presented to the ER after an apparent overdose with trazodone. He says he had taken 10 pills of trazodone in an attempt to harm himself. Patient had been dealing with uncontrolled pain for the past week. He says he is normally on [place] every 4 hours but he ran out of them early as he had taken more than prescribed amount due to worsening pain last month. He reports having some shakes in his lower extremities which he thinks are due to withdrawal from [place]. He had been in the ER yesterday with complaints of pain and at that time had requested [place]. He reportedly told the physician taking care of him that he would go home and take multiple pills of trazodone to harm himself if he did not receive a prescription for [place]. His primary care provider had been called and they had arranged for him to get a refill of the [place] but he says he had only one pill of [place] when he went home. He took the [place] added while he seemed to help with his pain and he began to develop some shakes in his lower extremities and as he could not be returning longer he decided to take multiple pills of trazodone. During the interview the patient kept asking if he would be given his pain medications and medications to treat his withdrawal even if he is admitted to psychiatric unit. Past Med Surg Social Fam HX - Past Medical History Attestation: Yes The following information was validated with the patient. Source: patient Medical history: diabetes, kidney stones Psychiatric history: anxiety, depression - Past Surgical History Surgical History: cholecystectomy, other - Social History Smoking Status: Never smoker Smokeless Tobacco Status: No Alcohol use: none Drug use: none - Family History Father Living Status: Hx Family Cardiac Disorders: Yes ([place]) Maternal Grandfather Living Status: Hx Family Cardiac Disorders: Yes ([place]) Sister Hx Family GI Disorders: Yes (possible kidney stones) Internal Medicine - H&P: Meds Clomipramine HCl [Anafranil] 25 mg PO HS 03/03/15 [History] Dicyclomine [Bentyl] 10 mg PO QID 04/28/17 [History] HYDROcodone/Acet 5/325 mg [[place] 5-325 mg] 1 tab PO Q4H PRN 04/28/17 [History] Ibuprofen [Motrin] 200 mg PO TID PRN 04/28/17 [History] Insulin Glargine,Hum.rec.anlog [[place]if Solostar] 6 units SQ DAILY 04/28/17 [ History] Lipase/Protease/Amylase [Lyric Her 36,000 Units Capsule] 1 cap PO AD 04/28/17 [ History] Lipase/Protease/Amylase [Lyric Her 36,000 Units Capsule] 2 cap PO TIDWM 04/28/17 [History] Pantoprazole Sodium 40 mg PO DAILY 04/28/17 [History] Ropinirole HCl [Requip] 2 mg PO TID 04/28/17 [History] Sertraline [Zoloft] 50 mg PO DAILY 04/28/17 [History] TraZODone 100 mg PO HS 04/28/17 [History] Ferrous Sulfate 325 mg PO BIDWM #60 tablet 05/01/17 [Rx] 3 Allergy/AdvReac Type Severity Reaction Status Date / Time No Known Allergies Allergy Verified 05/05/17 10:38 All Systems PM: A 10-system review of systems was performed and is negative for pertinent findings except as documented above in the HPI. - Constitutional Constitutional: no chills, no fever(s), no night sweats - EENT Eyes: no change in vision, no discharge, no pain, no photophobia Ears: no ear discharge, no ear pain, no tinnitus Nose, mouth and throat: no dysphagia, no nasal discharge, no neck pain, no sore throat - Cardiovascular Cardiovascular ROS IM: no chest pain, no diaphoresis, no dyspnea, no lightheadedness, no palpitations, no syncope - Respiratory Respiratory: no cough, no dyspnea, no wheezing, no excessive phlegm production - Gastrointestinal Gastrointestinal: no abdominal pain, no diarrhea, no hematemesis, no hematochezia, no melena, no nausea, no vomiting - Genitourinary Genitourinary ROS male: flank pain (Left) - Musculoskeletal Musculoskeletal ROS IM: no numbness, no tingling - Integumentary Integumentary IM: no rash, no unusual bruising - Neurological Neurological ROS: no confusion, no convulsions, no focal weakness, no numbness, no tingling, no tremor(s) - Hematologic/Lymphatic Hematologic/Lymphatic: no easy bruising - Constitutional Vitals: Temp Pulse Resp BP Pulse Ox 98.6 F 66 14 132/79 96 05/06/17 08:00 05/06/17 08:00 05/06/17 08:00 05/06/17 08:00 05/06/17 08:00 General appearance: Present: cooperative, A&O X 3, pleasant, no acute distress, answers questions appropriately - Neck Neck exam general surgery: Present: supple, trachea midline. Absent: lymphadenopathy - Respiratory Respiratory exam: Present: CTAB. Absent: accessory muscle use, rales, rhonchi, wheezes - Cardiovascular Cardiovascular exam: Present: RRR, +S1, +S2. Absent: diastolic murmur, gallop, rubs, systolic murmur - GI/Abdominal GI/Abdominal exam: Present: normal bowel sounds, soft, no peritoneal signs. Absent: distended, tenderness - Extremities Exam Extremities exam: Present: warm, radial pulses palpable and symmetrical. Absent : calf tenderness, cyanotic, pedal edema - Back Exam Back exam: Absent: CVA tenderness (L), CVA tenderness (R) - Neurological Exam Neurological exam: Present: CN II-XII intact, oriented X3, no focal deficits. Absent: facial droop, speech deficit - Psychiatric Psychiatric exam: Present: depressed, suicidal ideation - Skin Skin exam: Present: dry, intact Internal Med - H&P Results - EKG Data -: EKG Interpreted by Myself EKG shows normal: sinus rhythm - EKG Data Interpretation IM: other (Slight prolongation of QTC at 445) - Impressions CT scan of the abdomen and pelvis reviewed. Shows bilateral nonobstructive nephrolithiasis greater on the left
[2017-05-06] MEDS ORDERED: Dextrose Gel 15 GM PO PRN ×2 (09:45)
[2017-05-06] MEDS ORDERED: D5% in Water 1,000 ML IVC PRN (09:45)
[2017-05-06] MEDS ORDERED: *HR* Dextrose 50 % in Water (Syg) 50 ML SYRINGE IVP PRN (09:45)
[2017-05-06] MEDS: 0.9 % Sodium Chloride 1,000 ML IVC SCH ×2 (11:04→20:51)
[2017-05-06] MEDS: Insulin LISPRO 300 UNITS/3 ML VIAL SQ SCH ×2 (11:13→16:58)
[2017-05-06] MEDS: Insulin DETEMIR 100 UNIT/ML X5UNITS SQ SCH (15:15)
--- NOTE | 2017-05-06 15:53 | Consult Note ---
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 He will see Dr. Enriquez and a new opiate agreement can be considered. For treatment of his pain on an outpatient basis he could be considered for BUTRANS. If he is unsuccessful he may meet criteria for opiate abuse and be considered for Suboxone. However Suboxone is not an ideal treatment for pain. The patient should be offered medicines for withdrawal symptoms including clonidine, baclofen I, Zofran. At this point I do not think he needs specific psychiatric follow-up as his mood disorder arises as an examination of his painful condition. Nonetheless psychiatric consultation could be helpful in the future or on an outpatient basis History of Present Illness Requesting Physician: Billy Ponce MD Reason for consult: pain and mood, overuse of Trazodone History of present illness: Mr. Naidu is a 46 year old male Chief complaint: I cannot live like this History of present illness: The patient is feeling better today and he reports the pain is not as much an issue. I was called last night about his predicament. The patient was on [place] for pain. He was trying to take it as prescribed within every 4 hours however's pain pills are gone and he could not get a sleep. He started to develop some withdrawal and some pacing. In an impulsive mobility took 10 trazodone in an effort to go to sleep. He realized that this was a bad idea he awoke and his mother and she called 911. He presented to the ER where his case was discussed by phone. The patient has previously had a pain contract and is aware of the limitations on this. The patient has been followed by his family doctor Dr. Vázquez and is to be scheduled to see a pain specialist Dr. Enriquez. This appointment was scheduled on Friday and the patient still was out of medicine. The patient reports no significant diagnosis of major depression he denies any suicidal ideation or previous suicide attempts however. The patient was seen in the past and treated with a Suboxone taper so he knows that he tolerates Suboxone. He was never placed on Suboxone maintenance or methadone. He has painful conditions that are listed in his medical record. The patient has never been treated with naltrexone. Patient denies any suicidal ideation at this time. He notes that when pain is increased he has trouble with concentration and attention and moved. The patient I discussed the treatment options. This includes adhering to a pain contract, the use of a fentanyl patch, the use of which is a transdermal BUTRANS patch The patient could also be seen for outpatient Suboxone. However, he does not have Opioid dependence. CC: Billy Ponce MD Past Med Surg Social Fam HX - Past Medical History Medical history: diabetes, kidney stones - Past Surgical History Surgical History: cholecystectomy, other - Social History Smoking Status: Never smoker Smokeless Tobacco Status: No Alcohol use: none Drug use: none - Family History Father Living Status: Hx Family Cardiac Disorders: Yes ([place]) Maternal Grandfather Living Status: Hx Family Cardiac Disorders: Yes ([place]) Sister Hx Family GI Disorders: Yes (possible kidney stones) Medications & Allergies Clomipramine HCl [Anafranil] 25 mg PO HS 03/03/15 [History] Dicyclomine [Bentyl] 10 mg PO QID 04/28/17 [History] HYDROcodone/Acet 5/325 mg [[place] 5-325 mg] 1 tab PO Q4H PRN 04/28/17 [History] Ibuprofen [Motrin] 200 mg PO TID PRN 04/28/17 [History] Insulin Glargine,Hum.rec.anlog [[place] Solostar] 6 units SQ DAILY 04/28/17 [ History] Lipase/Protease/Amylase [Lyric Her 36,000 Units Capsule] 1 cap PO AD 04/28/17 [ History] Lipase/Protease/Amylase [Lyric Her 36,000 Units Capsule] 2 cap PO TIDWM 04/28/17 [History] Pantoprazole Sodium 40 mg PO DAILY 04/28/17 [History] Ropinirole HCl [Requip] 2 mg PO TID 04/28/17 [History] Sertraline [Zoloft] 50 mg PO DAILY 04/28/17 [History] TraZODone 100 mg PO HS 04/28/17 [History] Ferrous Sulfate 325 mg PO BIDWM #60 tablet 05/01/17 [Rx] 3 Allergy/AdvReac Type Severity Reaction Status Date / Time No Known Allergies Allergy Verified 05/05/17 10:38 Review of Systems Endocrine: Reports: fatigue Mental Status Exam Patient orientation: Yes Person, Yes Time, Yes Place Level of alertness: Alert Patient appearance: Appropriate, Well Groomed Behavior: calm, cooperative Psychomotor activity: Normal Eye contact: Maintains Eye Contact Mood description: Euthymic/stable Affect description: congruent with mood, full range Speech pattern: Normal rate, Normal rhythm, Normal tone Speech volume: Normal Thought process: Linear, Goal Oriented Thought content: Yes Intact, No Suicidal ideation, No Homicidal ideation, No Overt delusions Perceptual disturbances: No Auditory hallucinations, No Visual hallucinations Attention span: Capable of Focused Attention Memory description: Grossly Intact Patient reliability: Reliable Historian Intelligence estimate: Average Judgment: Good Insight: Partial Results - Vital Signs Vital signs: Temp Pulse Resp BP Pulse Ox 98 F 76 14 136/85 99 05/06/17 12:00 05/06/17 12:00 05/06/17 12:00 05/06/17 12:00 05/06/17 12:00 - Labs Labs: Laboratory Last Values Salicylates < 5.0 mg/dL (15-30) L 05/06/17 05:26 Acetaminophen < 1.0 mcg/mL (10-30) L 05/06/17 05:26 Ethyl Alcohol < 10 mg/dL (0-10) 05/06/17 05:26 Consult Discharge Plan - Plan Additional Instructions: no change in medicaitions recommended Referrals: NONE,PCP [Primary Care Provider] -
--- NOTE | 2017-05-06 17:52 | Electrocardiograph Report ---
[address] [address] Test Date: 2017-05-06 Pat Name: Eduardo Naidu Department: 104 Room: 2A13 Gender: M Clinical Documentation Manager: : 1970 Requested By: Patrick Solo Order Number: [id number] Reading MD: Sowmya Brown Measurements Intervals [place] Rate: 84 P: 73 ME: 134 QRS: 82 QRSD: 102 T: 72 QT: 403 QTc: 445 Interpretive Statements SINUS RHYTHM Electronically Signed On 05-06-2017 17:51:04 EST by Sowmya Brown
[2017-05-06] MEDS ORDERED: Insulin LISPRO 300 UNITS/3 ML VIAL SQ SCH (21:00)
[2017-05-07] MEDS: *HR* HYDROcodone/Acet 5/325 mg TABLET PO PRN ×4 (01:08→13:56)
[2017-05-07 04:47] LABS: Basophils # 0.1 K/mcL (0.0-0.2); Basophils % 1.4 %; Eosinophils # 0.1 K/mcL (0.0-0.6); Hematocrit 33.7 % (37.5-50.1); Hemoglobin 10.4 g/dL (12.9-16.9); Immature Granulocytes % 0.3 % (0-4); Lymphocytes # 3.2 K/mcL (0.6-4.6); Lymphocytes % 41.6 %; Mean Corpuscular HGB Conc 30.9 g/dL (31.6-35.5); Mean Corpuscular Hemoglobin 22.8 pg (28.0-33.3); Mean Corpuscular Volume 73.9 fL (83.0-100.0); Mean Platelet Volume 11.2 fL (9.4-12.4); Monocytes # 0.9 K/mcL (0.0-1.3); Monocytes % 11.7 %; Neutrophils # 3.4 K/mcL (1.6-8.9); Platelet Count 320 K/mcL (140-400); Red Blood Count 4.56 M/mcL (4.19-5.50); Red Cell Distribution Width 24.3 % (11.5-14.5)
[2017-05-07 04:56] LABS: BUN/Creatinine Ratio 19 (6-26); Blood Urea Nitrogen 14 mg/dL (8-26); Calcium 8.3 mg/dL (8.6-10.8); Carbon Dioxide 22 mEq/L (19-29); Chloride 107 mEq/L (98-109); Glucose 123 mg/dL (70-99); Osmolality,Calculated 290 (280-300); Sodium 139 mEq/L (136-145); eGFR For African Americans > 60 (> 60); eGFR For Non-African Americans > 60 (> 60)
[2017-05-07 05:38] LABS: Hypochromasia Present (Not Present)
[2017-05-07 05:39] LABS: Acanthocytes 2+ (Not Present); Anisocytosis 2+ (Not Present); Platelet Estimate Normal (Normal); Schistocytes 1+ (Not Present); Target Cells 1+ (Not Present)
[2017-05-07] MEDS: rOPINIRole 1 MG TABLET PO SCH ×2 (08:04→13:56)
[2017-05-07] MEDS: Insulin LISPRO 300 UNITS/3 ML VIAL SQ SCH ×2 (08:05→12:02)
[2017-05-07] MEDS: Insulin DETEMIR 100 UNIT/ML X5UNITS SQ SCH (08:05)
[2017-05-07] MEDS ORDERED: Insulin DETEMIR 100 UNIT/ML X5UNITS SQ SCH (09:00)
[2017-05-07 11:36] VITALS: BP 155/73
--- NOTE | 2017-05-07 12:18 | Discharge Summary ---
Date of Encounter: 05/07/17 Time of Encounter: 10:20 - Discharge Diagnosis (1) Deliberate medication overdose Priority: Primary Status: Acute Qualifiers: Encounter type: initial encounter Qualified Code(s): T50.902A - Poisoning by unspecified drugs, medicaments and biological substances, intentional self- harm, initial encounter (2) Suicide attempt Priority: Secondary Status: Acute (3) Anemia Priority: Secondary Status: Chronic Qualifiers: Anemia type: iron deficiency Iron deficiency anemia type: other iron deficiency Qualified Code(s): D50.8 - Other iron deficiency anemias (4) Diabetes Priority: Secondary Status: Acute Qualifiers: Diabetes mellitus type: due to underlying condition Diabetes mellitus complication status: with hyperglycemia Diabetes mellitus parts counterman insulin use: with parts counterman use Qualified Code(s): E08.65 - Diabetes mellitus due to underlying condition with hyperglycemia; Z79.4 - terminal gauger supervisor (current) use of insulin; Z79.4 - terminal gauger supervisor (current) use of insulin; Z79.4 - halfway (current ) use of insulin; Z79.4 - terminal gauger supervisor (current) use of insulin - Discharge Medications Home Medications: Clomipramine HCl [Anafranil] 25 mg PO HS 03/03/15 [History] Dicyclomine [Bentyl] 10 mg PO QID 04/28/17 [History] HYDROcodone/Acet 5/325 mg [[place] 5-325 mg] 1 tab PO Q4H PRN 04/28/17 [History] Ibuprofen [Motrin] 200 mg PO TID PRN 04/28/17 [History] Insulin Glargine,Hum.rec.anlog [Sherif [place]] 6 units SQ DAILY 04/28/17 [ History] Lipase/Protease/Amylase [Lyric Her 36,000 Units Capsule] 1 cap PO AD 04/28/17 [ History] Lipase/Protease/Amylase [Lyric Her 36,000 Units Capsule] 2 cap PO TIDWM 04/28/17 [History] Pantoprazole Sodium 40 mg PO DAILY 04/28/17 [History] Ropinirole HCl [Requip] 2 mg PO TID 04/28/17 [History] Sertraline [Zoloft] 50 mg PO DAILY 04/28/17 [History] TraZODone 100 mg PO HS 04/28/17 [History] Ferrous Sulfate 325 mg PO BIDWM #60 tablet 05/01/17 [Rx] Allergies/Adverse Reactions: 3 Allergy/AdvReac Type Severity Reaction Status Date / Time No Known Allergies Allergy Verified 05/05/17 10:38 Date of admission: 05/06/17 06:14 Primary care physician: PCP NONE Consults: 05/06/17 06:55 Consult to Psychiatry [CONS] Routine Consulting Provider: Jenny Macario Reason for Consult: intentional overdose Call Completed: Yes 05/06/17 08:00 Consult to Pastoral Services [CONS] Routine Comment: Consult to Dairy Manufacturing Technologist [CONS] Routine Reason for SW Consult: d/c needs. Admit for SI. Discharging clinician: Jayda Mandujano Anticipated date of discharge: 05/07/17 - Patient Status Disposition: Home, Self-Care Condition: Good Functional capacity at discharge: independent ambulation Overall status at discharge: patient is progressing back to baseline - Discharge Instructions Instructions: Depression (DC), Diabetes Mellitus Type 2 in Adults (DC) Follow Up With: NONE,PCP [Primary Care Provider] - (don't forget your appointment today...) Additional Instructions: Follow up outpatient with psychiatry for further management of your depression no change in medications recommended - Diet and Activity Activity: increase activity as tolerated Diet: diabetic diet, low fat, low cholesterol, low salt diet Hospital course: Mr. Naidu is a 46 year old male patient was observed in the hospital after presenting to the ER after taking 10 tablets of 50 mg trazodone with possible intention to self-harm. He has improved clinically and he was evaluated by psychiatry. Per their evaluation, it does not appear that the patient took these medications with suicidal intent but instead to calm himself due to severe pain and withdrawal from narcotic medications. The patient did complain of some leg cramps but did not have any clear overt signs of narcotic withdrawal during his stay here. He was treated with [place] for his chronic flank pain related to kidney stones. Today the patient is doing much better and is clinically stable for discharge. He has follow-up set up with pain management later today and intends to keep that appointment for further evaluation and management of his pain. He will be discharged home today. - Time Spent with Patient Total time spent providing and/or coordinating discharge services: Less than 30 minutes (25 min) - Constitutional Vitals: Temp Pulse Resp BP Pulse Ox 97.9 F 54 16 155/73 99 05/07/17 11:35 05/07/17 11:35 05/07/17 11:35 05/07/17 11:35 05/07/17 11:35 General appearance: Present: cooperative, A&O X 3, pleasant, no acute distress, answers questions appropriately - Respiratory Respiratory exam: Present: CTAB. Absent: accessory muscle use, rales, rhonchi, wheezes - Cardiovascular Cardiovascular exam: Present: RRR, +S1, +S2. Absent: diastolic murmur, gallop, rubs, systolic murmur - GI/Abdominal GI/Abdominal exam: Present: normal bowel sounds, soft, no peritoneal signs. Absent: distended, tenderness - Extremities Exam Extremities exam: Present: warm, radial pulses palpable and symmetrical. Absent : calf tenderness, cyanotic, pedal edema - Neurological Exam Neurological exam: Present: alert, oriented X3, no focal deficits. Absent: facial droop, speech deficit
== END 2017-05-07 14:06 | disposition home or self-care (01) ==
LOC: 2ANU 04:34 → EMEROO 04:34 → SUATTDRO 06:14 → 2ANU 07:05
PROVIDERS: ADMIT Family Medicine; ATTEND Internal Medicine

== ENCOUNTER 2017-05-31 15:28 | Inpatient (IN) ==
--- NOTE | 2017-05-31 15:47 | Emergency Department Note ---
Disposition Clinical Impression: Suicidal ideation Chronic pain Qualifiers: Chronic pain type: other chronic pain Qualified Code(s): G89.29 - Other chronic pain Disposition: Admitted As Inpatient Condition: Good Referrals: NONE,PCP [Primary Care Provider] - Forms: ED Satisfaction Letter Time of Disposition: 22:50 General Adult HPI - General Chief complaint: ED Psychiatric Symptoms Stated complaint: SI Time Seen by Provider: 05/31/17 15:31 Source: patient, EMS Limitations: no limitations Nursing Notes Reviewed: Yes Vital Signs Reviewed: Yes - History of Present Illness HPI Narrative: Patient is a 46-year-old male that presents to the emergency department for suicidal ideation with a plan. 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 He states that he has run out of his pain pills and has not been able to sleep and is having a lot of pain. He states that he has thought about committing suicide by taking a bunch of sleeping pills. States that he has not done this because he did not want to cause pain for his mom. Patient denies taking anything today, denies any homicidal ideations and denies any hallucinations. Patient states that he has had to be admitted for depression back in 1989. States that this was a voluntary admission. He states that approximately 2 weeks ago he tried taking a sleeping pill but realized that he took too much and called 911. Patient states that he sees a psychiatrist Dr. Marley Pain Scale: 10 - Related Data Home Medications Medication Instructions Recorded Confirmed Clomipramine HCl [Anafranil] 25 mg PO HS 03/03/15 05/30/17 Dicyclomine [Bentyl] 10 mg PO QID 04/28/17 05/30/17 HYDROcodone/Acet 5/325 mg [[place] 1 tab PO Q4H PRN 04/28/17 05/30/17 5-325 mg] Ibuprofen [Motrin] 200 mg PO TID PRN 04/28/17 05/30/17 Insulin Glargine,Hum.rec.anlog 6 units SQ DAILY 04/28/17 05/30/17 [Sherif Cortez] Lipase/Protease/Amylase [Lyric Her 1 cap PO AD 04/28/17 05/30/17 36,000 Units Capsule] Lipase/Protease/Amylase [Lyric Her 2 cap PO TIDWM 04/28/17 05/30/17 36,000 Units Capsule] Pantoprazole Sodium 40 mg PO DAILY 04/28/17 05/30/17 Ropinirole HCl [Requip] 2 mg PO TID 04/28/17 05/30/17 Sertraline [Zoloft] 50 mg PO DAILY 04/28/17 05/30/17 TraZODone 100 mg PO HS 04/28/17 05/30/17 Hydrocodone Bitartrate [Zohydro ER] 15 mg PO BID 05/30/17 05/30/17 Previous Rx's Medication Instructions Recorded Ferrous Sulfate 325 mg PO BIDWM #60 tablet 05/01/17 Allergies Allergy/AdvReac Type Severity Reaction Status Date / Time No Known Allergies Allergy Verified 05/05/17 10:38 All systems ED: reviewed and negative except as stated. Gastrointestinal: Reports: abdominal pain Musculoskeletal: Reports: back pain Psychiatric: Reports: depression, suicidal thoughts. Denies: homicidal thoughts , auditory hallucinations, visual hallucinations Past Medical History - Past Medical History Medical history: Reports: diabetes, kidney stones Surgical history: Reports: cholecystectomy, other Psychiatric history: Reports: anxiety, depression - Social History Smoking Status: Never smoker Smokeless Tobacco Status: No Alcohol use: Reports: occasionally Drug use: Reports: prescription drug abuse Physical Exam - General Limitations: no limitations General appearance: alert, in no apparent distress - Head Head exam: atraumatic, normocephalic - Eye Eye exam: Present: normal appearance, EOMI - Neck Neck exam: Present: normal inspection, full ROM, trachea midline - Respiratory Respiratory exam: Present: normal lung sounds bilaterally. Absent: respiratory distress, wheezes - Cardiovascular Cardiovascular exam: Present: regular rate, normal rhythm, normal heart sounds, +S1 - Abdominal Exam Abdominal exam: Present: soft, tenderness, normal bowel sounds Abdominal tenderness: Present: LUQ, epigastrium, mild - Back Exam Back exam: Present: normal inspection, full ROM, CVA tenderness (R). Absent: tenderness, CVA tenderness (L) - Neurological Exam Neurological exam: Present: alert, oriented X3 - Psychiatric Psychiatric exam: Present: normal affect, normal mood - Skin Skin exam: Present: warm, dry, intact Course Vital Signs Temperature 98.4 F 05/31/17 15:30 Pulse Rate 72 05/31/17 15:30 Respiratory Rate 16 05/31/17 15:30 Blood Pressure 134/85 05/31/17 15:30 O2 Sat by Pulse Oximetry 100 05/31/17 15:30 Temperature 98.4 F 05/31/17 15:30 Pulse Rate 72 05/31/17 15:30 Respiratory Rate 16 05/31/17 15:30 Blood Pressure 134/85 05/31/17 15:30 O2 Sat by Pulse Oximetry 100 05/31/17 15:30 Oxygen Delivery Oxygen Delivery Room Air Medical Decision Making - MDM Narrative Medical decision making narrative: Due to the patient presenting with suicidal ideation with plan we will do a CBC , BMP, urinalysis, urine tox, salicylate, acetaminophen, ethanol. Once the patient has been medically cleared we will contact [facility] for further psychiatric evaluation. The patient has been medically cleared and we have contacted [facility] for further psychiatric evaluation. We will await their evaluation and recommendations. I had a discussion with the psychiatry team and they had concerns with the patient being on opiates and requiring further pain medication or possibly going through withdrawal while in the psychiatric unit. They requested that the hospitalist be on board prior to admission to the psychiatric unit. I called and spoke with the hospitalist and they have agreed to consult on this patient and manage the patient's detox and pain management. I have called and spoke with the psychiatry team and informed them that this has been arranged they have stated that the patient may be transferred to another facility that can manage both psychiatric and medical components. We are awaiting their final decision. Patient will be signed out to the night team pending the mentation and final decision from the psychiatric team. The patient will be admitted to psychiatry in the ear with a hospitalist consult. I discussed this with the hospital and they have agreed to see the patient and to manage the patient's medical detox and pain management here in the psychiatry unit. I spoke with Dr. Pian and he felt that it was more appropriate to admit the patient to psychiatry due to the patient having suicidal ideations and the hospitalist consult versus having the patient admitted to medicine and psychiatry consulting. The patient will be admitted to psychiatry at this time for further evaluation and management with a hospitalist internal medicine consultation. - Medical Records Medical records reviewed: Yes I reviewed the patient's medical records. - Lab Data Lab results reviewed: Yes I reviewed the patient's lab results. Result diagrams: 05/31/17 16:03 05/31/17 16:03 Lab Results 05/31/17 05/31/17 05/31/17 Range/Units 16:03 16:03 16:13 WBC 9.7 (4.3-11.1) K/mcL RBC 4.08 L (4.19-5.50) M/mcL Hgb 9.9 L (12.9-16.9) g/dL Hct 31.8 L (37.5-50.1) % MCV 77.9 L (83.0-100.0) fL MCH 24.3 L (28.0-33.3) pg MCHC 31.1 L (31.6-35.5) g/dL RDW 26.0 H (11.5-14.5) % Plt Count 370 (140-400) K/mcL MPV 10.7 (9.4-12.4) fL Immature Gran % 0.2 (0-4) % Seg Neutrophils % 58.0 % Lymphocytes % 25.6 % Monocytes % 14.6 % Eosinophils % 0.3 % Basophils % 1.3 % Neutrophils # 5.6 (1.6-8.9) K/mcL Lymphocytes # 2.5 (0.6-4.6) K/mcL Monocytes # 1.4 H (0.0-1.3) K/mcL Eosinophils # 0.0 (0.0-0.6) K/mcL Basophils # 0.1 (0.0-0.2) K/mcL Platelet Estimate Normal (Normal) Anisocytosis 3+ A (Not Present) Spherocytes 1+ A (Not Present) Target Cells 2+ A (Not Present) Ovalocytes 1+ A (Not Present) Acanthocytes (Spur) 1+ A (Not Present) Schistocytes 1+ A (Not Present) Sodium 139 (136-145) mEq/L Potassium 4.2 (3.5-5.1) mEq/L Chloride 107 (98-107) mEq/L Carbon Dioxide 26 (23-29) mEq/L BUN 20 (6-20) mg/dL Creatinine 0.73 (0.70-1.30) mg/dL Est GFR ( Amer) > 60 (> 60) Est GFR (Non-Af Amer) > 60 (> 60) BUN/Creatinine Ratio 27 H (6-26) Glucose 131 H (70-105) mg/dL Calculated Osmolality 292 (280-300) Calcium 9.1 (8.6-10.3) mg/dL Urine Color Yellow (Yellow) Urine Clarity Clear (Clear) Urine pH 6.5 (5.0-8.0) pH Units Ur Specific [place] 1.022 (1.010-1.025) Urine Protein Negative (Neg-Trace) mg/dL Urine Glucose (UA) 250 H (Normal) mg/dL Urine Ketones Negative (Negative) mg/dL Urine Blood Negative (Negative) Urine Nitrite Negative (Negative) Urine Bilirubin Negative (Negative) Urine Urobilinogen Normal (Normal) mg/dL Ur Leukocyte Esterase Negative (Negative) Salicylates < 5.0 L (15.0-30.0) mg/dL Urine Opiates Screen (Uibhny=729) ng/mL Acetaminophen < 1.0 L (10-30) mcg/mL Ur Barbiturates Screen (Bfqxyc=411) ng/mL Ur Phencyclidine Scrn (Cutoff=25) ng/mL Ur Amphetamines Screen (Ehahrw=9132) ng/mL U Benzodiazepines Scrn (Tymefk=210) ng/mL Urine Cocaine Screen (Cutoff= 300) ng/mL U Marijuana (THC) Screen (Cutoff = 50) ng/mL Ethyl Alcohol < 10 (0-10) mg/dL 05/31/17 Range/Units 16:13 WBC (4.3-11.1) K/mcL RBC (4.19-5.50) M/mcL Hgb (12.9-16.9) g/dL Hct (37.5-50.1) % MCV (83.0-100.0) fL MCH (28.0-33.3) pg MCHC (31.6-35.5) g/dL RDW (11.5-14.5) % Plt Count (140-400) K/mcL MPV (9.4-12.4) fL Immature Gran % (0-4) % Seg Neutrophils % % Lymphocytes % % Monocytes % % Eosinophils % % Basophils % % Neutrophils # (1.6-8.9) K/mcL Lymphocytes # (0.6-4.6) K/mcL Monocytes # (0.0-1.3) K/mcL Eosinophils # (0.0-0.6) K/mcL Basophils # (0.0-0.2) K/mcL Platelet Estimate (Normal) Anisocytosis (Not Present) Spherocytes (Not Present) Target Cells (Not Present) Ovalocytes (Not Present) Acanthocytes (Spur) (Not Present) Schistocytes (Not Present) Sodium (136-145) mEq/L Potassium (3.5-5.1) mEq/L Chloride (98-107) mEq/L Carbon Dioxide (23-29) mEq/L BUN (6-20) mg/dL Creatinine (0.70-1.30) mg/dL Est GFR ( Amer) (> 60) Est GFR (Non-Af Amer) (> 60) BUN/Creatinine Ratio (6-26) Glucose (70-105) mg/dL Calculated Osmolality (280-300) Calcium (8.6-10.3) mg/dL Urine Color (Yellow) Urine Clarity (Clear) Urine pH (5.0-8.0) pH Units Ur Specific [place] (1.010-1.025) Urine Protein (Neg-Trace) mg/dL Urine Glucose (UA) (Normal) mg/dL Urine Ketones (Negative) mg/dL Urine Blood (Negative) Urine Nitrite (Negative) Urine Bilirubin (Negative) Urine Urobilinogen (Normal) mg/dL Ur Leukocyte Esterase (Negative) Salicylates (15.0-30.0) mg/dL Urine Opiates Screen Negative (Cmeomj=892) ng/mL Acetaminophen (10-30) mcg/mL Ur Barbiturates Screen Negative (Jrqnvo=600) ng/mL Ur Phencyclidine Scrn Negative (Cutoff=25) ng/mL Ur Amphetamines Screen Negative (Amzaug=2666) ng/mL U Benzodiazepines Scrn Negative (Zmaevw=507) ng/mL Urine Cocaine Screen Negative (Cutoff= 300) ng/mL U Marijuana (THC) Screen Negative (Cutoff = 50) ng/mL Ethyl Alcohol (0-10) mg/dL Attestation Statement - Attestation Attestation: Patient was seen with resident physician. I reviewed the history, physical, assessment and plan, and agree with the findings. I also personally evaluated this patient and had [id number] time with this patient. 46-year-old male presents emergency Department chief complaint of wanting all 10. Patient has history of chronic pain medication abuse. He says been shopping for ER to ER for last 3 days try to get pain medicine because he ran out of his. He has is for chronic abdominal pain and chronic kidney stones. He says that nobody is giving him medicines and he just does not know what to do anymore and just wants it all. Denies other specific complaints on exam vitals are stable. ENT is unremarkable heart and lungs normal. Abdomen is soft and nontender. Extremities unremarkable. Neurologically the patient is intact. Psychiatrically patient appears anxious. ED course we will do usual medical clearance for psychiatry department have one A, evaluate the patient to determine the next step in his care. When they did come and evaluate the patient and they felt that his suicidal ideation was related to his lack of pain medication. However the patient is a chronic narcotic seeker and he admits that his frustration and had suicidal ideations related to the fact that no longer will anyone prescribe him narcotics. He complains of no new pain symptoms and he has no withdrawal symptoms suggestive of narcotic withdrawal. The psych department was concerned that he may have some withdrawal moving forward and he wanted internal medicine to manage his pain and possible withdrawal symptoms. We spoke with the hospitalist who agreed to consult on this patient while he was in 1 a. He was treated with nonnarcotic pain medication while in the emergency department. He will be taken one A for psychiatric evaluation and treatment, and the internal medicine service will manage his pain. Agree with resident physician assessment and plan.
[2017-05-31 16:14] LABS: Basophils # 0.1 K/mcL (0.0-0.2); Basophils % 1.3 %; Eosinophils % 0.3 %; Hematocrit 31.8 % (37.5-50.1); Hemoglobin 9.9 g/dL (12.9-16.9); Immature Granulocytes % 0.2 % (0-4); Lymphocytes # 2.5 K/mcL (0.6-4.6); Lymphocytes % 25.6 %; Mean Corpuscular HGB Conc 31.1 g/dL (31.6-35.5); Mean Corpuscular Hemoglobin 24.3 pg (28.0-33.3); Mean Corpuscular Volume 77.9 fL (83.0-100.0); Mean Platelet Volume 10.7 fL (9.4-12.4); Monocytes # 1.4 K/mcL (0.0-1.3); Monocytes % 14.6 %; Neutrophils # 5.6 K/mcL (1.6-8.9); Platelet Count 370 K/mcL (140-400); Red Blood Count 4.08 M/mcL (4.19-5.50)
[2017-05-31 16:25] LABS: Bilirubin,Urine Negative (Negative); Blood,Urine Negative (Negative); Clarity,Urine Clear (Clear); Color,Urine Yellow (Yellow); Glucose,Urine (UA) 250 mg/dL (Normal); Ketones,Urine Negative (Negative); Leukocyte Esterase,Urine Negative (Negative); Nitrite,Urine Negative (Negative); PH,Urine 6.5 pH Units (5.0-8.0); Protein,Urine Negative (Neg-Trace); Specific Gravity,Urine 1.022 (1.010-1.025); Urobilinogen,Urine Normal (Normal)
[2017-05-31 16:28] LABS: Amphetamine Screen,Urine Negative ng/mL (Cutoff=1000); Barbiturate Screen,Urine Negative ng/mL (Cutoff=200); Benzodiazepines Screen,Urine Negative ng/mL (Cutoff=200); Cannabinoid Screen,Urine Negative ng/mL (Cutoff = 50); Cocaine Screen,Urine Negative ng/mL (Cutoff= 300); Opiate Screen,Urine Negative ng/mL (Cutoff=300); Phencyclidine Screen,Urine Negative ng/mL (Cutoff=25)
[2017-05-31 16:35] LABS: Anisocytosis 3+ (Not Present); Target Cells 2+ (Not Present)
[2017-05-31 16:36] LABS: Acanthocytes 1+ (Not Present); Schistocytes 1+ (Not Present)
[2017-05-31 16:37] LABS: Spherocytes 1+ (Not Present)
[2017-05-31 16:38] LABS: Ovalocytes 1+ (Not Present); Platelet Estimate Normal (Normal)
[2017-05-31 16:47] LABS: Acetaminophen < 1.0 mcg/mL (10-30); Ethanol < 10 mg/dL (0-10); Salicylate < 5.0 mg/dL (15.0-30.0)
[2017-05-31 18:01] LABS: BUN/Creatinine Ratio 27 (6-26); Blood Urea Nitrogen 20 mg/dL (6-20); Calcium 9.1 mg/dL (8.6-10.3); Carbon Dioxide 26 mEq/L (23-29); Chloride 107 mEq/L (98-107); Glucose 131 mg/dL (70-105); Osmolality,Calculated 292 (280-300); Potassium 4.2 mEq/L (3.5-5.1); Sodium 139 mEq/L (136-145); eGFR For African Americans > 60 (> 60); eGFR For Non-African Americans > 60 (> 60)
[2017-05-31] MEDS ORDERED: Ibuprofen 800 MG TABLET PO ONE (21:50)
--- NOTE | 2017-05-31 23:28 | Emergency Department Note ---
Disposition Clinical Impression: Suicidal ideation Chronic pain Qualifiers: Chronic pain type: other chronic pain Qualified Code(s): G89.29 - Other chronic pain Disposition: Admitted As Inpatient Condition: Good Referrals: NONE,PCP [Primary Care Provider] - Forms: ED Satisfaction Letter General Adult HPI - General Chief complaint: ED Psychiatric Symptoms Stated complaint: SI Time Seen by Provider: 05/31/17 15:31 Source: patient, EMS Limitations: no limitations - History of Present Illness Pain Scale: 10 - Related Data Home Medications Medication Instructions Recorded Confirmed Clomipramine HCl [Anafranil] 25 mg PO HS 03/03/15 05/30/17 Dicyclomine [Bentyl] 10 mg PO QID 04/28/17 05/30/17 HYDROcodone/Acet 5/325 mg [[place] 1 tab PO Q4H PRN 04/28/17 05/30/17 5-325 mg] Ibuprofen [Motrin] 200 mg PO TID PRN 04/28/17 05/30/17 Insulin Glargine,Hum.rec.anlog 6 units SQ DAILY 04/28/17 05/30/17 [Sherif Cortez] Lipase/Protease/Amylase [Lyric Her 1 cap PO AD 04/28/17 05/30/17 36,000 Units Capsule] Lipase/Protease/Amylase [Lyric Her 2 cap PO TIDWM 04/28/17 05/30/17 36,000 Units Capsule] Pantoprazole Sodium 40 mg PO DAILY 04/28/17 05/30/17 Ropinirole HCl [Requip] 2 mg PO TID 04/28/17 05/30/17 Sertraline [Zoloft] 50 mg PO DAILY 04/28/17 05/30/17 TraZODone 100 mg PO HS 04/28/17 05/30/17 Hydrocodone Bitartrate [Zohydro ER] 15 mg PO BID 05/30/17 05/30/17 Previous Rx's Medication Instructions Recorded Ferrous Sulfate 325 mg PO BIDWM #60 tablet 05/01/17 Allergies Allergy/AdvReac Type Severity Reaction Status Date / Time No Known Allergies Allergy Verified 05/05/17 10:38 Gastrointestinal: Reports: abdominal pain Musculoskeletal: Reports: back pain Psychiatric: Reports: depression, suicidal thoughts. Denies: homicidal thoughts , auditory hallucinations, visual hallucinations Past Medical History - Past Medical History Medical history: Reports: diabetes, kidney stones Surgical history: Reports: cholecystectomy, other Psychiatric history: Reports: anxiety, depression - Social History Smoking Status: Never smoker Smokeless Tobacco Status: No Alcohol use: Reports: occasionally Drug use: Reports: prescription drug abuse Physical Exam - General Limitations: no limitations General appearance: alert, in no apparent distress Course Course Narrative: There has been a change in admission plans due to logistics. Apparently the hospitalist services unable to consult on the psychiatry unit here because it is managed under a different facility. Decision was made to admit the patient to the hospitalist service with psychiatric consultation. Vital Signs Temperature 98.4 F 05/31/17 15:30 Pulse Rate 72 05/31/17 15:30 Respiratory Rate 16 05/31/17 15:30 Blood Pressure 134/85 05/31/17 15:30 O2 Sat by Pulse Oximetry 100 05/31/17 15:30 Temperature 98.4 F 05/31/17 15:30 Pulse Rate 72 05/31/17 15:30 Respiratory Rate 16 05/31/17 15:30 Blood Pressure 134/85 05/31/17 15:30 O2 Sat by Pulse Oximetry 100 05/31/17 15:30 Oxygen Delivery Oxygen Delivery Room Air Medical Decision Making - Lab Data Result diagrams: 05/31/17 16:03 05/31/17 16:03 Lab Results 05/31/17 05/31/17 05/31/17 Range/Units 16:03 16:03 16:13 WBC 9.7 (4.3-11.1) K/mcL RBC 4.08 L (4.19-5.50) M/mcL Hgb 9.9 L (12.9-16.9) g/dL Hct 31.8 L (37.5-50.1) % MCV 77.9 L (83.0-100.0) fL MCH 24.3 L (28.0-33.3) pg MCHC 31.1 L (31.6-35.5) g/dL RDW 26.0 H (11.5-14.5) % Plt Count 370 (140-400) K/mcL MPV 10.7 (9.4-12.4) fL Immature Gran % 0.2 (0-4) % Seg Neutrophils % 58.0 % Lymphocytes % 25.6 % Monocytes % 14.6 % Eosinophils % 0.3 % Basophils % 1.3 % Neutrophils # 5.6 (1.6-8.9) K/mcL Lymphocytes # 2.5 (0.6-4.6) K/mcL Monocytes # 1.4 H (0.0-1.3) K/mcL Eosinophils # 0.0 (0.0-0.6) K/mcL Basophils # 0.1 (0.0-0.2) K/mcL Platelet Estimate Normal (Normal) Anisocytosis 3+ A (Not Present) Spherocytes 1+ A (Not Present) Target Cells 2+ A (Not Present) Ovalocytes 1+ A (Not Present) Acanthocytes (Spur) 1+ A (Not Present) Schistocytes 1+ A (Not Present) Sodium 139 (136-145) mEq/L Potassium 4.2 (3.5-5.1) mEq/L Chloride 107 (98-107) mEq/L Carbon Dioxide 26 (23-29) mEq/L BUN 20 (6-20) mg/dL Creatinine 0.73 (0.70-1.30) mg/dL Est GFR ( Amer) > 60 (> 60) Est GFR (Non-Af Amer) > 60 (> 60) BUN/Creatinine Ratio 27 H (6-26) Glucose 131 H (70-105) mg/dL Calculated Osmolality 292 (280-300) Calcium 9.1 (8.6-10.3) mg/dL Urine Color Yellow (Yellow) Urine Clarity Clear (Clear) Urine pH 6.5 (5.0-8.0) pH Units Ur Specific [place] 1.022 (1.010-1.025) Urine Protein Negative (Neg-Trace) mg/dL Urine Glucose (UA) 250 H (Normal) mg/dL Urine Ketones Negative (Negative) mg/dL Urine Blood Negative (Negative) Urine Nitrite Negative (Negative) Urine Bilirubin Negative (Negative) Urine Urobilinogen Normal (Normal) mg/dL Ur Leukocyte Esterase Negative (Negative) Salicylates < 5.0 L (15.0-30.0) mg/dL Urine Opiates Screen (Euquci=754) ng/mL Acetaminophen < 1.0 L (10-30) mcg/mL Ur Barbiturates Screen (Thrgqa=796) ng/mL Ur Phencyclidine Scrn (Cutoff=25) ng/mL Ur Amphetamines Screen (Kdxfnc=0698) ng/mL U Benzodiazepines Scrn (Nknaty=979) ng/mL Urine Cocaine Screen (Cutoff= 300) ng/mL U Marijuana (THC) Screen (Cutoff = 50) ng/mL Ethyl Alcohol < 10 (0-10) mg/dL 05/31/17 Range/Units 16:13 WBC (4.3-11.1) K/mcL RBC (4.19-5.50) M/mcL Hgb (12.9-16.9) g/dL Hct (37.5-50.1) % MCV (83.0-100.0) fL MCH (28.0-33.3) pg MCHC (31.6-35.5) g/dL RDW (11.5-14.5) % Plt Count (140-400) K/mcL MPV (9.4-12.4) fL Immature Gran % (0-4) % Seg Neutrophils % % Lymphocytes % % Monocytes % % Eosinophils % % Basophils % % Neutrophils # (1.6-8.9) K/mcL Lymphocytes # (0.6-4.6) K/mcL Monocytes # (0.0-1.3) K/mcL Eosinophils # (0.0-0.6) K/mcL Basophils # (0.0-0.2) K/mcL Platelet Estimate (Normal) Anisocytosis (Not Present) Spherocytes (Not Present) Target Cells (Not Present) Ovalocytes (Not Present) Acanthocytes (Spur) (Not Present) Schistocytes (Not Present) Sodium (136-145) mEq/L Potassium (3.5-5.1) mEq/L Chloride (98-107) mEq/L Carbon Dioxide (23-29) mEq/L BUN (6-20) mg/dL Creatinine (0.70-1.30) mg/dL Est GFR ( Amer) (> 60) Est GFR (Non-Af Amer) (> 60) BUN/Creatinine Ratio (6-26) Glucose (70-105) mg/dL Calculated Osmolality (280-300) Calcium (8.6-10.3) mg/dL Urine Color (Yellow) Urine Clarity (Clear) Urine pH (5.0-8.0) pH Units Ur Specific [place] (1.010-1.025) Urine Protein (Neg-Trace) mg/dL Urine Glucose (UA) (Normal) mg/dL Urine Ketones (Negative) mg/dL Urine Blood (Negative) Urine Nitrite (Negative) Urine Bilirubin (Negative) Urine Urobilinogen (Normal) mg/dL Ur Leukocyte Esterase (Negative) Salicylates (15.0-30.0) mg/dL Urine Opiates Screen Negative (Wqfmpr=490) ng/mL Acetaminophen (10-30) mcg/mL Ur Barbiturates Screen Negative (Itporv=674) ng/mL Ur Phencyclidine Scrn Negative (Cutoff=25) ng/mL Ur Amphetamines Screen Negative (Wslgkb=7666) ng/mL U Benzodiazepines Scrn Negative (Glkzed=615) ng/mL Urine Cocaine Screen Negative (Cutoff= 300) ng/mL U Marijuana (THC) Screen Negative (Cutoff = 50) ng/mL Ethyl Alcohol (0-10) mg/dL
[2017-06-01] MEDS ORDERED: MOM Conc 10 ML UD.LIQ PO PRN (01:33)
[2017-06-01] MEDS ORDERED: Haloperidol Lactate 5 MG/ML VIAL IM PRN (01:33)
[2017-06-01] MEDS ORDERED: Acetaminophen 325 MG TABLET PO PRN (01:33)
[2017-06-01] MEDS ORDERED: Mag Hydrox/Al Hydrox/Simeth 30 ML UDC PO PRN (01:33)
[2017-06-01] MEDS: traZODone 50 MG TABLET PO PRN ×2 (02:27→21:12)
[2017-06-01] MEDS: hydrOXYzine pamoate 25 MG CAPSULE PO PRN ×2 (02:27→21:02)
[2017-06-01] MEDS ORDERED: *HR* HYDROcodone/Acet 7.5/325 mg TABLET PO PRN (03:06)
--- NOTE | 2017-06-01 03:12 | Internal Medicine Consult Note ---
Date of Encounter: 06/01/17 Time of Encounter: 03:09 - Assessment and Plan (1) Chronic pain syndrome Current Visit: Yes Status: Acute Assessment and plan: Start [place] 10 every 6 hours as needed Follow-up with Dr. Enriquez as outpatient Thank you for allowing us to participate in the care of this patient, call with any questions (2) Calculus of kidney Current Visit: No Status: Acute Assessment and plan: Patient mentions that he has history of calcium oxalate calculi Encouraged to increase his calcium intake in order to bind oxalate in the intestine, avoid absorption and decrease the risk of producing stones Increase fluid intake up to 3 L a day (3) Depression Current Visit: No Status: Chronic Assessment and plan: Managed by psychiatry Qualifiers: Depression Type: major depressive disorder Major depression recurrence: recurrent Active/Remission status: in partial remission Qualified Code(s): F33.41 - Major depressive disorder, recurrent, in partial remission (4) Suicidal ideations Current Visit: Yes Status: Acute Assessment and plan: Managed by psychiatry (5) Diabetes Current Visit: No Status: Acute Assessment and plan: Continue Levemir 6 units twice a day Diabetic Diet Qualifiers: Diabetes mellitus type: due to underlying condition Diabetes mellitus complication status: with hyperglycemia Diabetes mellitus speech and hearing director insulin use: with speech and hearing director use Qualified Code(s): E08.65 - Diabetes mellitus due to underlying condition with hyperglycemia; Z79.4 - group home (current) use of insulin; Z79.4 - manager landscape (current) use of insulin; Z79.4 - manager landscape (current ) use of insulin; Z79.4 - manager landscape (current) use of insulin Internal Medicine - CN: HPI - Data of Consult Patient: known to practice within the last 3 years Consult date: 06/01/17 Requesting Physician: Nas Robertson DO - Consult Narrative Reason for consult: Pain control History of present illness: Mr. Naidu is a 46 year old male with a past medical history of chronic pancreatitis for which he had a pancreatectomy, cholecystectomy, nephrolithiasis complaining of severe abdominal pain and bilateral flank pain. He mentioned that he would kill himself if he would not get enough pain medications. Recently he started seeing Dr. Enriquez and has been taking Zohydro 15 mg BID to control his pain, unfortunately she ran out of his medication as he started taking more of it. CT scan from a few days ago showed left renal calculi less than 5 mm. Hemoglobin today is 9.9 and glucose 131. He was admitted to the psych inpatient unit. We were consulted in order to manage his pain Past Med Surg Social Fam HX - Past Medical History Medical history: diabetes (Insulin-dependent), kidney stones, other (Chronic pain, chronic pancreatitis, diabetes type 2 insulin-dependent, suicidal attempts ) Psychiatric history: anxiety, depression - Past Surgical History Surgical History: cholecystectomy, other (Pancreatectomy, splenectomy) - Social History Smoking Status: Never smoker Smokeless Tobacco Status: No Alcohol use: occasionally Drug use: prescription drug abuse - Family History Father Living Status: Hx Family Cardiac Disorders: Yes ([place]) Maternal Grandfather Living Status: Hx Family Cardiac Disorders: Yes ([place]) Sister Hx Family GI Disorders: Yes (possible kidney stones) - Additional Family History Additional family history: Father and maternal grandmother with myocardial infarction. Sister with nephrolithiasis Review of systems: Flank pain is 9 out of 10, other systems out of the 10 review were negative Internal Medicine - CN: Meds Clomipramine HCl [Anafranil] 25 mg PO HS 03/03/15 [History] Dicyclomine [Bentyl] 10 mg PO QID 04/28/17 [History] HYDROcodone/Acet 5/325 mg [[place] 5-325 mg] 1 tab PO Q4H PRN 04/28/17 [History] Ibuprofen [Motrin] 200 mg PO TID PRN 04/28/17 [History] Insulin Glargine,Hum.rec.anlog [[place]] 6 units SQ DAILY 04/28/17 [ History] Lipase/Protease/Amylase [Lyric Her 36,000 Units Capsule] 1 cap PO AD 04/28/17 [ History] Lipase/Protease/Amylase [Lyric Her 36,000 Units Capsule] 2 cap PO TIDWM 04/28/17 [History] Pantoprazole Sodium 40 mg PO DAILY 04/28/17 [History] Ropinirole HCl [Requip] 2 mg PO TID 04/28/17 [History] Sertraline [Zoloft] 50 mg PO DAILY 04/28/17 [History] TraZODone 100 mg PO HS 04/28/17 [History] Ferrous Sulfate 325 mg PO BIDWM #60 tablet 05/01/17 [Rx] Hydrocodone Bitartrate [Zohydro ER] 15 mg PO BID 05/30/17 [History] 3 Allergy/AdvReac Type Severity Reaction Status Date / Time No Known Allergies Allergy Verified 05/05/17 10:38 Internal Medicine - CN: Exam - Constitutional Vitals: Temp Pulse Resp BP Pulse Ox 96.8 F L 64 18 138/81 100 06/01/17 02:33 06/01/17 02:33 06/01/17 02:33 06/01/17 02:33 06/01/17 01:29 General appearance IM: Present: A&O X 3 - Head Head exam: Present: normocephalic Additional comments: Cachectic - Eye Eye exam: Present: EOMI, PERRL - ENT ENT exam: Present: mucous membranes dry - Neck Neck exam general surgery: Present: full ROM, normal inspection. Absent: lymphadenopathy - Respiratory Respiratory exam: Absent: accessory muscle use, chest wall tenderness, rales, rhonchi, wheezes, tachypnea - GI/Abdominal GI/Abdominal exam IM: Present: normal bowel sounds. Absent: distended, guarding , hernia, hepatomegaly, tenderness - Rectal Rectal exam: Present: deferred - Extremities Exam Extremities exam IM: Present: full ROM, normal inspection. Absent: calf tenderness, joint swelling - Expanded Upper Extremities Exam General: Absent: abrasion - Expanded Lower Extremities Exam Hip exam: Absent: abrasion - Back Exam Back exam: Present: CVA tenderness (L), CVA tenderness (R), full ROM - Neurological Exam Neurological exam: Present: CN II-XII intact, normal gait, oriented X3 Internal Medicine - CN: Reslt - Labs CBC & Chem 7: 05/31/17 16:03 05/31/17 16:03 Consult Discharge Plan - Plan Referrals: NONE,PCP [Primary Care Provider] -
[2017-06-01] MEDS: *HR* HYDROcodone/Acet 10/325 mg TABLET PO PRN ×3 (05:21→19:08)
[2017-06-01] MEDS: Insulin DETEMIR 100 UNIT/ML X5UNITS SQ SCH ×2 (09:02→21:01)
--- NOTE | 2017-06-01 15:40 | Psychiatry History & Physical ---
Date of Encounter: 06/01/17 Time of Encounter: 14:45 History of Present Illness Patient Stated Chief Complaint: "I was worried because that I was out of pain meds Medicare Admission Attestation: For traditional Medicare patients the provided hospital inpatient services are reasonable and necessary and in the case of services not specified as inpatient -only under 42 CFR 419.22 (n), that they are appropriately provided as inpatient services in accordance 42 CFR 412.3. For Critical Access Hospital the patient may reasonably be expected to be discharged or transferred to a hospital within 96 hours after admission to the Critical Access Hospital. Admitted From: Emergency Dept Plans for Post Hospital Care: Home History of Present Illness: Mr. Naidu is a 46 year old male who was admitted via the emergency room after he presented their for pain control having taken all of his opiate pain medication and not having any left for the next several weeks. He was in worried about withdrawal and being in pain from his chronic renal stones. Patient tells me today that he is "doing pretty good melodies here since getting my pain pills." He tells me he has chronic pain and he gets overwhelmed at the thought of experiencing the pain and states that he would rather "end it all than go through that". He states that since he get his pain medications, he is feeling fine now not having any issue with suicidal ideation/ homicidal ideation. He tells me that he slept good last night/early this morning once he was admitted and settled on the unit after he got his pain medications. He slept for about 4 to 5 hours. In reviewing what happened with this pain medications, he said that he did have a follow-up with pain management clinic Dr. Enriquez and was giving in [facility]. He found himself using 2 times the amount that was prescribed. He ran out of them because he was not compliant taking them. He called Dr. Enriquez's office and they refused to fill them at this time secondary to him not being in compliance. He was to have scheduled a renal consult for testing and lab work several months ago and never did so. Another reason they would not fill the medications because of his non compliance with medical follow up for the chronic medical issue. He has gone to 4 emergency rooms in the [facility] in the last 2 weeks getting pain medications to deal with his chronic pain from kidney stones. He states that he suffers from OCD and depression and he is compliant taking his psych medications. He admits to a history of opioid dependence and went to detox and rehab at the [facility] in 2015. He became addicted initially after receiving treatment for Chronic Pancreatitis. He has been seeing a psychiatrist Dr. Pepe at [facility] for treatment of his OCD and depression. Then, he was restarteed on opioids after having chroinc pain from renal stones. He was consulted by the psychiatric store sales consultant at [place] proximally a month ago when he was admitted onto a medical unit for evaluation of his kidney stones. He states that he knows that he is dependent on the opiate pain medication and does not know what to do about it. When he went to his pain management doctor, several months ago after he was referred, he acknowledged to me that he purposefully did not tell him he had a history of addiction to opioids for fear that the doctor would not prescribe them for him. He denies hearing voices other people do not hear. He denies seeing things other people do not see. He denies any paranoia or any signs of telepathy. He does not go days and days without sleep nor is he does do any other impulsive acts. He is currently dealing with anxiety over the pain and feels depresed because of the situation he is in. He feels helpless as to know what to do. He will be followed on 1-A by hospitalist for management of his pain and mother medical issues. Past Med Surg Social [facility] HX - Past Medical History Medical history: diabetes (Insulin-dependent), kidney stones, other (Chronic pain, chronic pancreatitis, diabetes type 2 insulin-dependent, suicidal attempts ) - Past Psychiatric History Psychiatric history: Reports: depression, previous psychiatric hospitalization, other (OCD) Family psychiatric history: No Family History of Suicide: None - Past Surgical History Surgical History: cholecystectomy, other (Pancreatectomy, splenectomy) - Social History Smoking Status: Never smoker Smokeless Tobacco Status: No Alcohol use: occasionally Drug use: prescription drug abuse Occupational status: unemployed, other (Thinking about applying for disability. He was denied previously. 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 but can't work due to chrounc pain.) Current living situation: Home, With Family Activity Level: Independent ambulation Recent Out of Country Travel Within the Last 8 Weeks: No Exposure or Possible Exposure to Illness During Travel: No - Family History Father Living Status: Hx Family Cardiac Disorders: Yes ([place]) Maternal Grandfather Living Status: Hx Family Cardiac Disorders: Yes ([place]) Sister Hx Family GI Disorders: Yes (possible kidney stones) Medications & Allergies Clomipramine HCl [Anafranil] 25 mg PO HS 03/03/15 [History] Dicyclomine [Bentyl] 10 mg PO QID 04/28/17 [History] HYDROcodone/Acet 5/325 mg [[place] 5-325 mg] 1 tab PO Q4H PRN 04/28/17 [History] Ibuprofen [Motrin] 200 mg PO TID PRN 04/28/17 [History] Insulin Glargine,Hum.rec.anlog [Toujeo Solostar] 6 units SQ DAILY 04/28/17 [ History] Lipase/Protease/Amylase [Lyric Her 36,000 Units Capsule] 1 cap PO AD 04/28/17 [ History] Lipase/Protease/Amylase [Lyric Her 36,000 Units Capsule] 2 cap PO TIDWM 04/28/17 [History] Pantoprazole Sodium 40 mg PO DAILY 04/28/17 [History] Ropinirole HCl [Requip] 2 mg PO TID 04/28/17 [History] Sertraline [Zoloft] 100 mg PO BID 04/28/17 [History] TraZODone 100 - 200 mg PO HS 04/28/17 [History] Ferrous Sulfate 325 mg PO BIDWM #60 tablet 05/01/17 [Rx] Hydrocodone Bitartrate [Zohydro ER] 15 mg PO BID 05/30/17 [History] 3 Allergy/AdvReac Type Severity Reaction Status Date / Time No Known Allergies Allergy Verified 05/05/17 10:38 Review of Systems Genitourinary male: Denies: urgency, dysuria, frequency, genital lesions Genitourinary female: Denies: urgency, dysuria, frequency, abnormal menses, dyspareunia Mental Status Exam Patient orientation: Yes Person, Yes Time, Yes Place, Yes Circumstance Level of alertness: Alert Patient appearance: Unkempt, Mal-nourished Behavior: anxious, restless Psychomotor activity: Normal Eye contact: Minimal Contact Mood description: Anxious Affect description: congruent with mood Speech pattern: Normal rate, Normal rhythm, Normal tone Speech volume: Normal Thought process: Linear Thought content: Yes Intact Attention span: Capable of Focused Attention, Capable of Sustained Attention Memory description: Grossly Intact Patient reliability: Reliable Historian Intelligence estimate: Above [place] Judgment: Limited Insight: Partial Exam - HEENT Head exam IM: Present: atraumatic Results - Vital Signs Vital signs: Temp Pulse Resp BP Pulse Ox 97.6 F 56 16 137/77 100 06/01/17 09:00 06/01/17 09:00 06/01/17 09:00 06/01/17 09:00 06/01/17 01:29 - Labs Labs: Laboratory Last Values WBC 9.7 K/mcL (4.3-11.1) 05/31/17 16:03 RBC 4.08 M/mcL (4.19-5.50) L 05/31/17 16:03 Hgb 9.9 g/dL (12.9-16.9) L 05/31/17 16:03 Hct 31.8 % (37.5-50.1) L 05/31/17 16:03 MCV 77.9 fL (83.0-100.0) L 05/31/17 16:03 MCH 24.3 pg (28.0-33.3) L 05/31/17 16:03 MCHC 31.1 g/dL (31.6-35.5) L 05/31/17 16:03 RDW 26.0 % (11.5-14.5) H 05/31/17 16:03 Plt Count 370 K/mcL (140-400) 05/31/17 16:03 MPV 10.7 fL (9.4-12.4) 05/31/17 16:03 Immature Gran % 0.2 % (0-4) 05/31/17 16:03 Seg Neutrophils % 58.0 % 05/31/17 16:03 Lymphocytes % 25.6 % 05/31/17 16:03 Monocytes % 14.6 % 05/31/17 16:03 Eosinophils % 0.3 % 05/31/17 16:03 Basophils % 1.3 % 05/31/17 16:03 Neutrophils # 5.6 K/mcL (1.6-8.9) 05/31/17 16:03 Lymphocytes # 2.5 K/mcL (0.6-4.6) 05/31/17 16:03 Monocytes # 1.4 K/mcL (0.0-1.3) H 05/31/17 16:03 Eosinophils # 0.0 K/mcL (0.0-0.6) 05/31/17 16:03 Basophils # 0.1 K/mcL (0.0-0.2) 05/31/17 16:03 Platelet Estimate Normal (Normal) 05/31/17 16:03 Anisocytosis 3+ (Not Present) A 05/31/17 16:03 Spherocytes 1+ (Not Present) A 05/31/17 16:03 Target Cells 2+ (Not Present) A 05/31/17 16:03 Ovalocytes 1+ (Not Present) A 05/31/17 16:03 Acanthocytes (Spur) 1+ (Not Present) A 05/31/17 16:03 Schistocytes 1+ (Not Present) A 05/31/17 16:03 Sodium 139 mEq/L (136-145) 05/31/17 16:03 Potassium 4.2 mEq/L (3.5-5.1) 05/31/17 16:03 Chloride 107 mEq/L (98-107) 05/31/17 16:03 Carbon Dioxide 26 mEq/L (23-29) 05/31/17 16:03 BUN 20 mg/dL (6-20) 05/31/17 16:03 Creatinine 0.73 mg/dL (0.70-1.30) 05/31/17 16:03 Est GFR ( Amer) > 60 (> 60) 05/31/17 16:03 Est GFR (Non-Af Amer) > 60 (> 60) 05/31/17 16:03 BUN/Creatinine Ratio 27 (6-26) H 05/31/17 16:03 Glucose 131 mg/dL (70-105) H 05/31/17 16:03 POC Glucose 235 (58-89) H 06/01/17 08:16 Calculated Osmolality 292 (280-300) 05/31/17 16:03 Calcium 9.1 mg/dL (8.6-10.3) 05/31/17 16:03 Urine Color Yellow (Yellow) 05/31/17 16:13 Urine Clarity Clear (Clear) 05/31/17 16:13 Urine pH 6.5 pH Units (5.0-8.0) 05/31/17 16:13 Ur Specific Ebony 1.022 (1.010-1.025) 05/31/17 16:13 Urine Protein Negative mg/dL (Neg-Trace) 05/31/17 16:13 Urine Glucose (UA) 250 mg/dL (Normal) H 05/31/17 16:13 Urine Ketones Negative mg/dL (Negative) 05/31/17 16:13 Urine Blood Negative (Negative) 05/31/17 16:13 Urine Nitrite Negative (Negative) 05/31/17 16:13 Urine Bilirubin Negative (Negative) 05/31/17 16:13 Urine Urobilinogen Normal mg/dL (Normal) 05/31/17 16:13 Ur Leukocyte Esterase Negative (Negative) 05/31/17 16:13 Salicylates < 5.0 mg/dL (15.0-30.0) L 05/31/17 16:03 Urine Opiates Screen Negative ng/mL (Eknrok=580) 05/31/17 16:13 Acetaminophen < 1.0 mcg/mL (10-30) L 05/31/17 16:03 Ur Barbiturates Screen Negative ng/mL (Dkrajn=482) 05/31/17 16:13 Ur Phencyclidine Scrn Negative ng/mL (Cutoff=25) 05/31/17 16:13 Ur Amphetamines Screen Negative ng/mL (Krpakz=1845) 05/31/17 16:13 U Benzodiazepines Scrn Negative ng/mL (Fmmxus=604) 05/31/17 16:13 Urine Cocaine Screen Negative ng/mL (Cutoff= 300) 05/31/17 16:13 U Marijuana (THC) Screen Negative ng/mL (Cutoff = 50) 05/31/17 16:13 Ethyl Alcohol < 10 mg/dL (0-10) 05/31/17 16:03 Assessment and Plan (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 Current visit: No Status: Acute Plan: Admit inpatient for safety and stabilization, Close observation, Suicide Precautions per unit protocol, Encourage participation in unit milieu, Group Therapy, Monitor sleep, Monitor appetite Risks, benefits, side effects, alternatives discussed w/pt: Yes (He is conintued on the same outpatient medications) Patient agreeable to treatment: Yes Plans for Post Hospital Care: Home Estimated Length of Stay (Days): 3 (2) Opioid use disorder, severe, dependence Current visit: Yes Status: Acute Plan: Admit inpatient for safety and stabilization, Monitor sleep, Monitor appetite Risks, benefits, side effects, alternatives discussed w/pt: Yes ( Needs to follow up and be compliant with pain managment team) Patient agreeable to treatment: Yes Plans for Post Hospital Care: Home Estimated Length of Stay (Days): 3
[2017-06-02] MEDS: *HR* HYDROcodone/Acet 10/325 mg TABLET PO PRN ×3 (01:18→14:28)
[2017-06-02] MEDS: Insulin DETEMIR 100 UNIT/ML X5UNITS SQ SCH ×2 (09:43→21:14)
[2017-06-02] MEDS: Ibuprofen 400 MG TABLET PO PRN (12:29)
--- NOTE | 2017-06-02 14:11 | Internal Med Progress Note ---
Date of Encounter: 06/02/17 Time of Encounter: 08:00 - Assessment and plan (1) Chronic pain syndrome Current Visit: Yes Status: Acute Assessment and plan: Continue with [place] when necessary. Follow-up with pain clinic. Continue with [place]. Continue with Matthewyl. (2) Calculus of kidney Current Visit: No Status: Acute Assessment and plan: Patient mentions that he has history of calcium oxalate calculi Encouraged to increase his calcium intake in order to bind oxalate in the intestine, avoid absorption and decrease the risk of producing stones Increase fluid intake up to 3 L a day (3) Depression Current Visit: No Status: Chronic Assessment and plan: Management per psychiatrist. 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 Pain is adequately controlled. Afebrile. - Constitutional Vitals: Temp Pulse Resp BP Pulse Ox 97.3 F L 72 16 130/69 100 06/02/17 08:51 06/02/17 08:51 06/02/17 08:51 06/02/17 08:51 06/01/17 01:29 General appearance: Present: A&O X 3 Exam: GEN: NAD CVS: RRR. S1, S2, No m/r/g RESP: CTAB ABD: Soft, NT, ND, +BS EXT: No edema. 2+ DP. No rashes NEURO: Nonfocal Internal Medicine: Result - Labs CBC & Chem 7: 05/31/17 16:03 05/31/17 16:03 - VTE Reasons for not Prescribing Prophylaxis: Treatment not Indicated - Low risk for VTE Consult Discharge Plan - Plan Referrals: NONE,PCP [Primary Care Provider] -
--- NOTE | 2017-06-02 19:18 | Psychiatry Progress Note ---
Date of Encounter: 06/02/17 Time of Encounter: 18:15 Subjective Interval history: Patient tells me that he is struggling to differentiate between real kidney stone pain versus his dependence on opioids. He states that he has been trying to sit down and figure out what to do. He knows he had a problem in the past and is accepting the fact that he has a problem with abuse and dependence on opioids again. He denies any suicidal/homicidal plan. He states that he has no ideation at this time but when he starts experiencing the pain he does. He denies any auditory or visual hallucinations. He states that he slept good last night is eating fine. He feels depressed and feels hopeless and helpless about what is going on but is trying to get it all figured out. Objective: Exam Patient orientation: Yes Person, Yes Time, Yes Place Level of alertness: Alert Patient appearance: Disheveled, Thin Behavior: anxious Psychomotor activity: Normal Eye contact: Fleeting Contact Mood description: Anxious Affect description: congruent with mood Speech pattern: Normal rate, Normal rhythm, Normal tone Speech volume: Normal Thought process: Intact Judgment: Limited Insight: Partial Results - Vital Signs Vital Signs: Temp Pulse Resp BP Pulse Ox 97.3 F L 72 16 130/69 100 06/02/17 08:51 06/02/17 08:51 06/02/17 08:51 06/02/17 08:51 06/01/17 01:29 - Labs Labs: Laboratory Results - last 24 hr 06/01/17 19:50 POC Glucose 144 H Assessment and Plan (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 Current visit: No Status: Acute Plan: Continue hospitalization, Close observation, Suicide Precautions per unit protocol, Encourage participation in unit milieu, Group Therapy, Monitor sleep Risks, benefits, side effects, alternatives discussed w/pt: Yes (He is continued on the same outpatient medications) Patient agreeable to treatment: Yes (2) Opioid use disorder, severe, dependence Current visit: Yes Status: Chronic Plan: Continue hospitalization, Close observation, Group Therapy, Monitor sleep Risks, benefits, side effects, alternatives discussed w/pt: Yes (Needs to follow up and be compliant with pain managment team) Patient agreeable to treatment: Yes Consult Discharge Plan - Plan Referrals: Groups, [facility] [Other] - 06/06/17 10:00 am (You will meet with an accounting software specialist to establish in care for Suboxone treatment on 06/06/2017 at 10:00am. Bring photo ID and insurance card with you.) Julito Mccloud [Outside] - 06/10/17 1:00 pm (The above appointment is with Manjinder for mental health and substance abuse counseling services. You will also see Ayaka Farias for outpatient psychiatric assessment and medication management services on 06/10/2017 at 3:00 PM.)
[2017-06-02] MEDS: traZODone 50 MG TABLET PO PRN (21:16)
[2017-06-03] MEDS: Ibuprofen 400 MG TABLET PO PRN (02:23)
[2017-06-03] MEDS: *HR* HYDROcodone/Acet 10/325 mg TABLET PO PRN ×3 (05:13→20:59)
[2017-06-03] MEDS: Insulin DETEMIR 100 UNIT/ML X5UNITS SQ SCH ×2 (09:01→20:59)
--- NOTE | 2017-06-03 14:31 | Psychiatry Progress Note ---
Date of Encounter: 06/03/17 Time of Encounter: 14:15 Subjective Interval history: Patient tells me "I am hoping I can get into a Suboxone clinic". He states he has financial issues right now that are causing problems for him and his thinking about bankruptcy. This makes him further anxious. He is hoping that a Suboxone clinic will be covered by his insurance provider. He thinks constantly about how he got into the situation and is terrified that he will not get out of it alive. Sleep was not good last night. He states that he slept for about 4 hours this morning after he took his pain meds. He tells me that since taking his pain meds this morning his pain is under better control. He gets panicked at the thought of being discharged and what he would do. Then starts having thoughts of suicide. He denies any auditory or visual hallucinations. Objective: Exam Patient orientation: Yes Person, Yes Place, Yes Circumstance Level of alertness: Alert Patient appearance: Thin Behavior: nervous Psychomotor activity: Normal Eye contact: Maintains Eye Contact Mood description: Depressed, Anxious Affect description: congruent with mood Speech pattern: Normal rate, Normal rhythm, Normal tone Speech volume: Normal Thought process: Linear Judgment: Limited Insight: Partial Results - Vital Signs Vital Signs: Temp Pulse Resp BP Pulse Ox 97.4 F L 76 16 129/79 100 06/03/17 09:00 06/03/17 09:00 06/03/17 09:00 06/03/17 09:00 06/01/17 01:29 - Labs Labs: Laboratory Results - last 24 hr 06/02/17 06/03/17 20:40 08:56 POC Glucose 146 H 100 H Assessment and Plan (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 ) Patient agreeable to treatment: Yes (2) Opioid use disorder, severe, dependence Current visit: Yes Status: Chronic Plan: Continue hospitalization, Close observation, Group Therapy, Monitor sleep Risks, benefits, side effects, alternatives discussed w/pt: Yes (Considering outpatient Suboxone therapy) Patient agreeable to treatment: Yes Consult Discharge Plan - Plan Referrals: Groups, Recover Together [Other] - 06/06/17 10:00 am (You will meet with an extension service specialist to establish in care for Suboxone treatment on 06/06/2017 at 10:00am. Bring photo ID and insurance card with you.) Julito Mccloud [Outside] - 06/10/17 1:00 pm (The above appointment is with Manjinder for mental health and substance abuse counseling services. You will also see Ayaka Farias for outpatient psychiatric assessment and medication management services on 06/10/2017 at 3:00 PM.)
[2017-06-03] MEDS: traZODone 50 MG TABLET PO PRN (21:00)
[2017-06-04] MEDS: *HR* HYDROcodone/Acet 10/325 mg TABLET PO PRN ×4 (03:54→23:04)
[2017-06-04] MEDS: Insulin DETEMIR 100 UNIT/ML X5UNITS SQ SCH ×2 (08:59→20:52)
--- NOTE | 2017-06-04 12:13 | Internal Med Progress Note ---
Date of Encounter: 06/04/17 Time of Encounter: 09:00 - Assessment and plan (1) Calculus of kidney Current Visit: Yes Status: Chronic (2) Depression Current Visit: Yes Status: Chronic Qualifiers: Depression Type: major depressive disorder Major depression recurrence: recurrent Active/Remission status: in partial remission Qualified Code(s): F33.41 - Major depressive disorder, recurrent, in partial remission (3) Suicidal ideations Current Visit: Yes Status: Acute (4) Diabetes Current Visit: Yes Status: Chronic Qualifiers: Diabetes mellitus type: due to underlying condition Diabetes mellitus complication status: with hyperglycemia Diabetes mellitus long term care pharmacist insulin use: with halfway use Qualified Code(s): E08.65 - Diabetes mellitus due to underlying condition with hyperglycemia; 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 He is admitted to the psychiatric service for management of suicidal ideation. Patient has been following up with pain management as outpatient, however, he has frequently finished his medications before his next appointment. This time , he finished a 30 days supply within 15 days Medicine was consulted for pain control. His diabetes mellitus is controlled, his A1c is 6.6. He has no new complaints, chest pain is being controlled with current regimen. His physical examination is unremarkable. Medicine will sign off this consult, will recommend to discharge the patient on the current medications is taking right now, I am recommending follow-up with his pain physician, and primary care doctor. Thank you for consult. - Constitutional Vitals: Temp Pulse Resp BP Pulse Ox 97.6 F 60 18 139/77 100 06/04/17 09:00 06/04/17 09:00 06/04/17 09:00 06/04/17 09:00 06/01/17 01:29 General appearance: Present: cachectic, A&O X 3, pleasant, no acute distress - Head Head exam: Present: atraumatic, normocephalic - Eye Eye exam: Present: PERRL, conjuntiva pink, sclera anicteric Pupils: Present: PERRL - Neck Neck exam general surgery: Present: supple, trachea midline. Absent: lymphadenopathy - Respiratory Respiratory exam: Present: CTAB. Absent: accessory muscle use, rales, rhonchi, wheezes - Cardiovascular Cardiovascular exam: Present: RRR, +S1, +S2. Absent: diastolic murmur, gallop, rubs, systolic murmur - GI/Abdominal GI/Abdominal exam: Present: normal bowel sounds, soft, no peritoneal signs. Absent: distended, tenderness - Extremities Exam Extremities exam: Present: warm, radial pulses palpable and symmetrical. Absent : calf tenderness, cyanotic, pedal edema - Neurological Exam Neurological exam: Present: alert, CN II-XII intact, oriented X3, no focal deficits. Absent: pronater drift, facial droop, speech deficit - Skin Skin exam: Present: dry, intact Internal Medicine: Result - Labs CBC & Chem 7: 05/31/17 16:03 05/31/17 16:03 - VTE Reasons for not Prescribing Prophylaxis: Treatment not Indicated - Low risk for VTE Consult Discharge Plan - Plan Referrals: Groups, [facility] [Other] - 06/06/17 10:00 am (You will meet with an cessation systems outreach specialist to establish in care for Suboxone treatment on 06/06/2017 at 10:00am. Bring photo ID and insurance card with you.) Julito Mccloud [Outside] - 06/10/17 1:00 pm (The above appointment is with Manjinder for mental health and substance abuse counseling services. You will also see Ayaka Farias for outpatient psychiatric assessment and medication management services on 06/10/2017 at 3:00 PM.)
--- NOTE | 2017-06-04 15:27 | Psychiatry Progress Note ---
Date of Encounter: 06/04/17 Time of Encounter: 09:10 Subjective Interval history: Patient was seen today to discuss further treatment and discharge planning. When I talked to him about possibly being discharged and going to rehab program , he told the aids social worker told him that he cannot get into a rehab program until Friday. When I talked to him about suicidal ideation she states that they have subsided greatly. I then proceeded to talk to him about possibly being discharged today or in the next day since she was currently stable. He immediately panicked. He got up and started walking around the room, agitated and shaking. "This is what happens when the thought of leaving here comes into my mind. I start thinking about killing myself so I do not go through this mental anguish". Patient denies any other issues on the unit. He is trying to talk to his mother about getting financial assistance to pay for an outpatient program. His hopeful that that will work out then that he will be able to get the program Friday for treatment. Objective: Exam Patient orientation: Yes Person, Yes Place Level of alertness: Alert Patient appearance: Thin Behavior: nervous, agitated Psychomotor activity: Increased Eye contact: Minimal Contact Mood description: Anxious Affect description: congruent with mood Speech pattern: Normal rate, Normal rhythm, Normal tone Speech volume: Normal Thought process: Linear, Goal Oriented Judgment: Fair Insight: Partial Results - Vital Signs Vital Signs: Temp Pulse Resp BP Pulse Ox 97.6 F 60 18 139/77 100 06/04/17 09:00 06/04/17 09:00 06/04/17 09:00 06/04/17 09:00 06/01/17 01:29 - Labs Labs: Laboratory Results - last 24 hr 06/03/17 06/04/17 19:58 07:55 POC Glucose 207 H 81 Assessment and Plan (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 Bring photo ID and insurance card with you.) Julito Mccloud [Outside] - 06/10/17 1:00 pm (The above appointment is with Manjinder for mental health and substance abuse counseling services. You will also see Ayaka Farias for outpatient psychiatric assessment and medication management services on 06/10/2017 at 3:00 PM.)
[2017-06-04] MEDS: hydrOXYzine pamoate 25 MG CAPSULE PO PRN ×2 (17:52→20:52)
[2017-06-04] MEDS: Ibuprofen 400 MG TABLET PO PRN (21:44)
[2017-06-05] MEDS: hydrOXYzine pamoate 25 MG CAPSULE PO PRN ×3 (02:54→23:40)
[2017-06-05] MEDS: *HR* HYDROcodone/Acet 10/325 mg TABLET PO PRN ×3 (05:17→18:49)
[2017-06-05] MEDS: Insulin DETEMIR 100 UNIT/ML X5UNITS SQ SCH ×2 (08:41→22:14)
--- NOTE | 2017-06-05 12:37 | Psychiatry Progress Note ---
Date of Encounter: 06/05/17 Time of Encounter: 12:30 Subjective Interval history: When asked the patient how he is doing today he stated "not too bad, but still feeling depressed". He told me that he took a Vistaril last evening and is finding that helpful with his anxiety. His pain is fairly well managed on his current medications. He has low energy and feels sad and anxious, but started to become more future oriented. He has been in contact with outpatient referrals for Suboxone clinic for drug rehab. He states he is hopeful he can get no one tomorrow. He states he still has thoughts that he would kill himself if he were not here on the unit; getting treatment or in a rehab getting treatment. He denies any auditory or visual hallucinations. Objective: Exam Patient orientation: Yes Person, Yes Time, Yes Place, Yes Circumstance Level of alertness: Alert Patient appearance: Unkempt, Thin Behavior: nervous Psychomotor activity: Normal Eye contact: Maintains Eye Contact Mood description: Depressed Affect description: congruent with mood Speech pattern: Normal rate, Normal rhythm, Normal tone Speech volume: Normal Thought process: Intact, Linear Thought content: Yes Suicidal ideation (passive) Judgment: Fair Insight: Partial Results - Vital Signs Vital Signs: Temp Pulse Resp BP Pulse Ox 97.6 F 63 18 150/76 100 06/05/17 10:52 06/05/17 10:52 06/05/17 10:52 06/05/17 10:52 06/01/17 01:29 - Labs Labs: Laboratory Results - last 24 hr 06/04/17 06/05/17 20:15 08:03 POC Glucose 268 H 115 H Assessment and Plan (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 Current visit: No Status: Acute Plan: Continue hospitalization, Suicide Precautions per unit protocol, Encourage participation in unit milieu, Group Therapy Risks, benefits, side effects, alternatives discussed w/pt: Yes (no changes) Patient agreeable to treatment: Yes (2) Opioid use disorder, severe, dependence Current visit: Yes Status: Chronic Plan: Continue hospitalization, Close observation Risks, benefits, side effects, alternatives discussed w/pt: [facility] Patient agreeable to treatment: Yes Consult Discharge Plan - Plan Referrals: Groups, [facility] [Other] - 06/06/17 10:00 am (You will meet with an health insurance specialist to establish in care for Suboxone treatment on 06/06/2017 at 10:00am. Bring photo ID and insurance card with you.) Julito Mccloud [Outside] - 06/10/17 1:00 pm (The above appointment is with Manjinder for mental health and substance abuse counseling services. You will also see Ayaka Farias for outpatient psychiatric assessment and medication management services on 06/10/2017 at 3:00 PM.)
[2017-06-05] MEDS: Ibuprofen 400 MG TABLET PO PRN ×2 (13:31→23:50)
[2017-06-06] MEDS: *HR* HYDROcodone/Acet 10/325 mg TABLET PO PRN ×2 (01:03→08:08)
[2017-06-06] MEDS: hydrOXYzine pamoate 25 MG CAPSULE PO PRN (06:05)
[2017-06-06 08:53] VITALS: BP 132/80
[2017-06-06] MEDS: Insulin DETEMIR 100 UNIT/ML X5UNITS SQ SCH (09:03)
--- NOTE | 2017-06-06 11:16 | Discharge Summary ---
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 Status: Acute (2) Opioid use disorder, severe, dependence Status: Chronic Medications - Discharge Medications Prescriptions: HYDROcodone/Acet 10/325 mg [Sayner 10-325 mg] 1 each PO Q6H PRN 4 Days #16 tablet PRN Reason: severe pain hydrOXYzine pamoate [HydrOXYzine Pamoate] 25 mg PO TID PRN 30 Days #90 capsule PRN Reason: Anxiety traZODone [TraZODone] 50 mg PO HS PRN 30 Days #30 tablet PRN Reason: Insomnia Clomipramine HCl [Anafranil] 25 mg PO HS 03/03/15 [History] Dicyclomine [Bentyl] 10 mg PO QID 04/28/17 [History] Insulin Glargine,Hum.rec.anlog [Toualana Solostar] 6 units SQ DAILY 04/28/17 [ History] Lipase/Protease/Amylase [Lyric Her 36,000 Units Capsule] 1 cap PO AD 04/28/17 [ History] Lipase/Protease/Amylase [Lyric Dr 36,000 Units Capsule] 2 cap PO TIDWM 04/28/17 [History] Pantoprazole Sodium 40 mg PO DAILY 04/28/17 [History] Ropinirole HCl [Requip] 2 mg PO TID 04/28/17 [History] Sertraline [Zoloft] 100 mg PO BID 04/28/17 [History] TraZODone 100 - 200 mg PO HS 04/28/17 [History] Ferrous Sulfate 325 mg PO BIDWM #60 tablet 05/01/17 [Rx] Calcium Carbonate [Tums] 1,000 mg PO TID tab.chew 06/06/17 [Rx] HYDROcodone/Acet 10/325 mg [Sayner 10-325 mg] 1 each PO Q6H PRN 4 Days #16 tablet 06/06/17 [Rx] Insulin DETEMIR [Levemir] 6 unit SQ BID [id number] 06/06/17 [Rx] hydrOXYzine pamoate [HydrOXYzine Pamoate] 25 mg PO TID PRN 30 Days #90 capsule 06/06/17 [Rx] traZODone [TraZODone] 50 mg PO HS PRN 30 Days #30 tablet 06/06/17 [Rx] Dicyclomine [Bentyl] 10 mg PO QID PRN #20 capsule 06/14/17 [Rx] Ondansetron HCl [Zofran] 4 mg PO Q8HR PRN #20 tablet 06/14/17 [Rx] 3 Allergy/AdvReac Type Severity Reaction Status Date / Time No Known Allergies Allergy Verified 06/14/17 15:28 Provider Date of admission: 06/01/17 01:32 Primary care physician: PCP NONE Consults: 06/01/17 02:53 Consult to Pastoral Services [CONS] Routine Comment: Assessment and Plan - Patient/Caregiver Discharge Instructions Activity: resume usual activities as tolerated Diet: regular diet - Follow up Plan Follow up with: Anthony, Cordelia [Other] - 06/06/17 2:30 pm (The above appointment is with an intake counselor. After seeing the counselor, you will be scheduled to see the doctor for Suboxone the next day he is in the office. You must bring your photo ID and medicaid card to this appointment to be seen. You will not be seen if you arrive late.) [facility] [Outside] - 06/10/17 1:00 pm (The above appointment is with Manjinder for mental health and substance abuse counseling services. You will also see Ayaka Farias for outpatient psychiatric assessment and medication management services on 06/10/2017 at 3:00 PM.) Functional capacity at discharge: independent ambulation Overall status at discharge: Stable Disposition: Home, Self-Care Hospital Course Hospital course: Mr. Naidu is a 46 year old male who told me today "I'm doing okay, hangin' in there". He states that he had difficulty sleeping last night, only slept about 4 to 5 hours, secondary to being nervous about discharging today. He is set to enroll in a Suboxone treatment program and has an intake this afternoon for the program. He is worried about having problems with pain, which he obsesses about as previously noted in other reports and emergency room visits. We discussed further that what drives him may not bethe intellectual worry about the pain, but more the physical need of the addiction and concern over going through the withdrawal. The Suboxone would help with that. He is also agreed that is going to start seeing a therapist on a regular basis to do 'talk therapy ' to discuss his anxiety and his addiction issues. He understands that he is addicted to opiates as he has been addicted to them before. He understands how the Suboxone program works, superficially, and that it will help him not go through withdrawal and will also help in part with his pain, but that he will be tapered off the medication over time to be opiate free. He understands that he lied to his pain management doctor's, but will try to get the renal workup completed to hopefully reestablish back in order to see the pain doctor about getting potentially neuro blocks or injections. He denies any suicidal/ homicidal ideation. He denies any auditory/visual hallucinations. He verbalizes appreciating the time and the effort that was made to get him into the Suboxone clinic. He still has a difficult time as he is early in the recovery mode of pre-contemplation, staying focused of taking pain medications for his pain. He will work on this with his talk therapist. He understands that he has discharge medications and how to take them. He understands his appointment today for his intake for the Suboxone clinic and is been worked out that it works for him financially. He denies any depression at this time, he mainly feels anxious and worried about being off the unit. He has the support of his mother and also the support of the Suboxone clinic if he chooses to follow through and do it as he says he does and will. Does patient wish to continue nicotine replacement upon disc: No (Non smoker) - Time Spent with Patient Total time spent providing and/or coordinating discharge services: 20 min Less than 30 minutes Quality - Multiple Antipsychotics Patient discharged on 2 or more antipsychotic medications: No Procedures - Procedures Procedures: Medication Management, Crisis Stabilization, Supportive Therapy, Group Therapy, Psychoeducational Therapy Mental Status Exam - Mental Status Exam Patient orientation: Yes Person, Yes Time, Yes Place, Yes Circumstance Level of alertness: Alert Patient appearance: Appropriate, Well Groomed, Thin Behavior: anxious Psychomotor activity: Normal Eye contact: Maintains Eye Contact Mood description: Anxious Affect description: congruent with mood Speech pattern: Normal rate, Normal rhythm, Normal tone Speech Volume: Normal Thought process: Intact, Linear, Goal Oriented Thought Content: Yes Intact Judgment: Fair Insight: Partial
== END 2017-06-06 13:47 | disposition home or self-care (01) | DRG 757 ==
LOC: EMEROO 15:28 → SUATTDRO 06-01 01:32 → 1ANU 06-01 01:32
PROVIDERS: ADMIT Psychiatry & Neurology Psychiatry; ATTEND Internal Medicine

== ENCOUNTER 2017-08-11 18:17 | Inpatient (IN) ==
--- NOTE | 2017-08-11 19:02 | Emergency Department Note ---
Disposition Clinical Impression: Acute anxiety, Suicidal ideations Depression Qualifiers: Depression Type: major depressive disorder Major depression recurrence: recurrent Active/Remission status: currently active Major depression episode severity: moderate Qualified Code(s): F33.1 - Major depressive disorder, recurrent, moderate Disposition: Still a Patient Forms: ED Satisfaction Letter General Adult HPI - General Chief complaint: ED Psychiatric Symptoms Stated complaint: SI Source: patient, EMS Limitations: no limitations Nursing Notes Reviewed: Yes Vital Signs Reviewed: Yes - History of Present Illness HPI Narrative: History of present illness: 47-year-old male history of depression suicidal ideation opioid dependence. [place] in his Suboxone clinic. Has not seen his therapist for her but. Also has anxiety disorder. Patient states he has been feeling more depressed. He can Quran that is been and it all. No definitive plan. He feels this way because he Cannot control his pain. 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 Patient denies any drugs or alcohol today. Is here for further evaluation. Pain Scale: 10 - Related Data Home Medications Medication Instructions Recorded Confirmed Clomipramine HCl [Anafranil] 25 mg PO HS 03/03/15 06/01/17 Dicyclomine [Bentyl] 10 mg PO QID 04/28/17 06/01/17 Insulin Glargine,Hum.rec.anlog 6 units SQ DAILY 04/28/17 06/01/17 [Sherif Cortez] Lipase/Protease/Amylase [Lyric Her 1 cap PO AD 04/28/17 06/01/17 36,000 Units Capsule] Lipase/Protease/Amylase [Lyric Her 2 cap PO TIDWM 04/28/17 06/01/17 36,000 Units Capsule] Pantoprazole Sodium 40 mg PO DAILY 04/28/17 06/01/17 Ropinirole HCl [Requip] 2 mg PO TID 04/28/17 06/01/17 Sertraline [Zoloft] 100 mg PO BID 04/28/17 06/01/17 TraZODone 100 - 200 mg PO HS 04/28/17 06/01/17 Previous Rx's Medication Instructions Recorded Ferrous Sulfate 325 mg PO BIDWM #60 tablet 05/01/17 Calcium Carbonate [Tums] 1,000 mg PO TID tab.chew 06/06/17 HYDROcodone/Acet 10/325 mg [[place] 1 each PO Q6H PRN 4 Days #16 tablet 06/06/17 10-325 mg] Insulin DETEMIR [Levemir] 6 unit SQ BID [id number] 06/06/17 hydrOXYzine pamoate [HydrOXYzine 25 mg PO TID PRN 30 Days #90 06/06/17 Pamoate] capsule traZODone [TraZODone] 50 mg PO HS PRN 30 Days #30 tablet 06/06/17 Dicyclomine [Bentyl] 10 mg PO QID PRN #20 capsule 06/14/17 Ondansetron HCl [Zofran] 4 mg PO Q8HR PRN #20 tablet 06/14/17 Hyoscyamine SL [Levsin SL] 0.125 mg SL TID #10 tab.subl 08/06/17 Allergies Allergy/AdvReac Type Severity Reaction Status Date / Time No Known Allergies Allergy Verified 06/14/17 15:28 All systems ED: reviewed and negative except as stated. Psychiatric: Reports: anxiety, depression, suicidal thoughts Past Medical History - Past Medical History Attestation: Yes The following information was validated with the patient. Source: patient Medical history: Reports: diabetes, kidney stones, other Surgical history: Reports: cholecystectomy, other (Pancreatectomy, splenectomy) Psychiatric history: Reports: depression, previous psychiatric hospitalization, other - Social History Smoking Status: Never smoker Smokeless Tobacco Status: No Alcohol use: Reports: occasionally Drug use: Reports: prescription drug abuse Physical Exam - General Limitations: no limitations General appearance: alert, anxious - Head Head exam: atraumatic, normocephalic - Eye Eye exam: Present: normal appearance, PERRL - ENT ENT exam: normal exam, normal oropharynx - Neck Neck exam: Present: normal inspection, full ROM - Chest Chest inspection: Present: normal inspection - Respiratory Respiratory exam: Present: normal lung sounds bilaterally - Cardiovascular Cardiovascular exam: Present: regular rate, normal rhythm - Abdominal Exam Abdominal exam: Present: soft, Non-Tender - Extremities Exam Extremities exam: Present: normal inspection, full ROM - Expanded Lower Extremity Exam Neurovascular/Tendon exam: Present: normal capillary refill Gait: observed and normal - Back Exam Back exam: Present: normal inspection, full ROM - Neurological Exam Neurological exam: Present: alert, oriented X3 - Psychiatric Psychiatric exam: Present: depressed, anxious, suicidal ideation - Skin Skin exam: Present: warm, dry, intact Course - Reevaluation(s) Reevaluation #1: Patient's physical examination is within normal limits. Patient is getting medical clearance and then evaluated by mental health services. Patient will get 1 mg of IM Ativan for anxiolysis. Disposition pending Time: 19:03 Reevaluation #2: ED workup is complete, patient has been medically cleared. I discussed the case with the mental health counselor over the phone and they will come down to evaluate the patient. Disposition pending Time: 20:49 Vital Signs Temperature 98.4 F 08/11/17 18:18 Pulse Rate 77 08/11/17 18:18 Respiratory Rate 16 08/11/17 18:18 Blood Pressure 170/79 08/11/17 18:18 O2 Sat by Pulse Oximetry 100 08/11/17 18:18 Temperature 98.4 F 08/11/17 18:18 Pulse Rate 77 08/11/17 18:18 Respiratory Rate 16 08/11/17 18:18 Blood Pressure 170/79 08/11/17 18:18 O2 Sat by Pulse Oximetry 100 08/11/17 18:18 Oxygen Delivery Oxygen Delivery Room Air Medical Decision Making - Lab Data Result diagrams: 08/11/17 19:31 08/11/17 19:31 Lab Results 08/11/17 08/11/17 08/11/17 Range/Units 18:31 19:04 19:31 WBC 6.9 (4.3-11.1) K/mcL RBC 4.16 L (4.19-5.50) M/mcL Hgb 10.3 L (12.9-16.9) g/dL Hct 31.6 L (37.5-50.1) % MCV 76.0 L (83.0-100.0) fL MCH 24.8 L (28.0-33.3) pg MCHC 32.6 (31.6-35.5) g/dL RDW 18.6 H (11.5-14.5) % Plt Count 508 H (140-400) K/mcL MPV 10.3 (9.4-12.4) fL Immature Gran % 0.3 (0-4) % Seg Neutrophils % 54.5 % Lymphocytes % 30.7 % Monocytes % 11.7 % Eosinophils % 0.9 % Basophils % 1.9 % Neutrophils # 3.8 (1.6-8.9) K/mcL Lymphocytes # 2.1 (0.6-4.6) K/mcL Monocytes # 0.8 (0.0-1.3) K/mcL Eosinophils # 0.1 (0.0-0.6) K/mcL Basophils # 0.1 (0.0-0.2) K/mcL Sodium (136-145) mEq/L Potassium (3.5-5.1) mEq/L Chloride (98-107) mEq/L Carbon Dioxide (23-29) mEq/L BUN (6-20) mg/dL Creatinine (0.70-1.30) mg/dL Est GFR ( Amer) (> 60) Est GFR (Non-Af Amer) (> 60) BUN/Creatinine Ratio (6-26) Glucose (70-105) mg/dL Calculated Osmolality (280-300) Calcium (8.6-10.3) mg/dL Urine Color Yellow (Yellow) Urine Clarity Clear (Clear) Urine pH 6.5 (5.0-8.0) pH Units Ur Specific [place] 1.016 (1.010-1.025) Urine Protein Negative (Neg-Trace) mg/dL Urine Glucose (UA) Normal (Normal) mg/dL Urine Ketones Negative (Negative) mg/dL Urine Blood Large H (Negative) Urine Nitrite Negative (Negative) Urine Bilirubin Negative (Negative) Urine Urobilinogen Normal (Normal) mg/dL Ur Leukocyte Esterase Negative (Negative) Urine Microscopic RBC 15-30 H (0-3) per hpf Calcium Oxalate Crystal Present Salicylates (15.0-30.0) mg/dL Urine Opiates Screen Negative (Usttkz=311) ng/mL Acetaminophen (10-30) mcg/mL Ur Barbiturates Screen Negative (Gnqrow=088) ng/mL Ur Phencyclidine Scrn Negative (Cutoff=25) ng/mL Ur Amphetamines Screen Negative (Wfxhxz=8064) ng/mL U Benzodiazepines Scrn Negative (Ogyvem=545) ng/mL Urine Cocaine Screen Negative (Cutoff= 300) ng/mL U Marijuana (THC) Screen Negative (Cutoff = 50) ng/mL Ethyl Alcohol (0-10) mg/dL 08/11/17 Range/Units 19:31 WBC (4.3-11.1) K/mcL RBC (4.19-5.50) M/mcL Hgb (12.9-16.9) g/dL Hct (37.5-50.1) % MCV (83.0-100.0) fL MCH (28.0-33.3) pg MCHC (31.6-35.5) g/dL RDW (11.5-14.5) % Plt Count (140-400) K/mcL MPV (9.4-12.4) fL Immature Gran % (0-4) % Seg Neutrophils % % Lymphocytes % % Monocytes % % Eosinophils % % Basophils % % Neutrophils # (1.6-8.9) K/mcL Lymphocytes # (0.6-4.6) K/mcL Monocytes # (0.0-1.3) K/mcL Eosinophils # (0.0-0.6) K/mcL Basophils # (0.0-0.2) K/mcL Sodium 134 L (136-145) mEq/L Potassium 4.7 (3.5-5.1) mEq/L Chloride 102 (98-107) mEq/L Carbon Dioxide 27 (23-29) mEq/L BUN 15 (6-20) mg/dL Creatinine 0.78 (0.70-1.30) mg/dL Est GFR ( Amer) > 60 (> 60) Est GFR (Non-Af Amer) > 60 (> 60) BUN/Creatinine Ratio 19 (6-26) Glucose 97 (70-105) mg/dL Calculated Osmolality 279 L (280-300) Calcium 9.1 (8.6-10.3) mg/dL Urine Color (Yellow) Urine Clarity (Clear) Urine pH (5.0-8.0) pH Units Ur Specific [place] (1.010-1.025) Urine Protein (Neg-Trace) mg/dL Urine Glucose (UA) (Normal) mg/dL Urine Ketones (Negative) mg/dL Urine Blood (Negative) Urine Nitrite (Negative) Urine Bilirubin (Negative) Urine Urobilinogen (Normal) mg/dL Ur Leukocyte Esterase (Negative) Urine Microscopic RBC (0-3) per hpf Calcium Oxalate Crystal Salicylates < 5.0 L (15.0-30.0) mg/dL Urine Opiates Screen (Ffhfki=234) ng/mL Acetaminophen < 1.0 L (10-30) mcg/mL Ur Barbiturates Screen (Cghzcu=436) ng/mL Ur Phencyclidine Scrn (Cutoff=25) ng/mL Ur Amphetamines Screen (Wxywzf=1421) ng/mL U Benzodiazepines Scrn (Pbwgem=238) ng/mL Urine Cocaine Screen (Cutoff= 300) ng/mL U Marijuana (THC) Screen (Cutoff = 50) ng/mL Ethyl Alcohol < 10 (0-10) mg/dL
[2017-08-11] MEDS ORDERED: *HR* LORazepam 2 MG/ML VIAL IM STA (19:05)
[2017-08-11 19:29] LABS: Bilirubin,Urine Negative (Negative); Clarity,Urine Clear (Clear); Color,Urine Yellow (Yellow); Glucose,Urine (UA) Normal (Normal)
[2017-08-11 19:30] LABS: Blood,Urine Large (Negative); Ketones,Urine Negative (Negative); Leukocyte Esterase,Urine Negative (Negative); Nitrite,Urine Negative (Negative); PH,Urine 6.5 pH Units (5.0-8.0); Protein,Urine Negative (Neg-Trace); Specific Gravity,Urine 1.016 (1.010-1.025); Urobilinogen,Urine Normal (Normal)
[2017-08-11 19:34] LABS: Calcium Oxalate Crystals,Urine Present
[2017-08-11 19:35] LABS: RBC,Urine 15-30 per hpf (0-3)
[2017-08-11 19:48] LABS: Basophils # 0.1 K/mcL (0.0-0.2); Basophils % 1.9 %; Eosinophils # 0.1 K/mcL (0.0-0.6); Eosinophils % 0.9 %; Hematocrit 31.6 % (37.5-50.1); Hemoglobin 10.3 g/dL (12.9-16.9); Immature Granulocytes % 0.3 % (0-4); Lymphocytes # 2.1 K/mcL (0.6-4.6); Lymphocytes % 30.7 %; Mean Corpuscular HGB Conc 32.6 g/dL (31.6-35.5); Mean Corpuscular Hemoglobin 24.8 pg (28.0-33.3); Mean Platelet Volume 10.3 fL (9.4-12.4); Monocytes # 0.8 K/mcL (0.0-1.3); Monocytes % 11.7 %; Neutrophils # 3.8 K/mcL (1.6-8.9); Platelet Count 508 K/mcL (140-400); Red Blood Count 4.16 M/mcL (4.19-5.50); Red Cell Distribution Width 18.6 % (11.5-14.5); Segmented Neutrophils % 54.5 %
[2017-08-11 19:59] LABS: BUN/Creatinine Ratio 19 (6-26); Blood Urea Nitrogen 15 mg/dL (6-20); Calcium 9.1 mg/dL (8.6-10.3); Carbon Dioxide 27 mEq/L (23-29); Chloride 102 mEq/L (98-107); Glucose 97 mg/dL (70-105); Osmolality,Calculated 279 (280-300); Potassium 4.7 mEq/L (3.5-5.1); Sodium 134 mEq/L (136-145); eGFR For African Americans > 60 (> 60); eGFR For Non-African Americans > 60 (> 60)
[2017-08-11 20:17] LABS: Amphetamine Screen,Urine Negative ng/mL (Cutoff=1000); Barbiturate Screen,Urine Negative ng/mL (Cutoff=200); Benzodiazepines Screen,Urine Negative ng/mL (Cutoff=200); Cannabinoid Screen,Urine Negative ng/mL (Cutoff = 50); Cocaine Screen,Urine Negative ng/mL (Cutoff= 300); Opiate Screen,Urine Negative ng/mL (Cutoff=300); Phencyclidine Screen,Urine Negative ng/mL (Cutoff=25)
[2017-08-11 20:30] LABS: Acetaminophen < 1.0 mcg/mL (10-30); Ethanol < 10 mg/dL (0-10); Salicylate < 5.0 mg/dL (15.0-30.0)
--- NOTE | 2017-08-11 23:24 | Emergency Department Note ---
Disposition Clinical Impression: Acute anxiety, Suicidal ideations Depression Qualifiers: Depression Type: major depressive disorder Major depression recurrence: recurrent Active/Remission status: currently active Major depression episode severity: moderate Qualified Code(s): F33.1 - Major depressive disorder, recurrent, moderate Disposition: Admitted As Inpatient Condition: Good Referrals: NONE,PCP [Primary Care Provider] - Forms: ED Satisfaction Letter Time of Disposition: 23:45 General Adult HPI - General Chief complaint: ED Psychiatric Symptoms Stated complaint: SI Time Seen by Provider: 08/11/17 23:20 Source: patient, EMS Limitations: no limitations - History of Present Illness Pain Scale: 10 - Related Data Home Medications Medication Instructions Recorded Confirmed Clomipramine HCl [Anafranil] 25 mg PO HS 03/03/15 06/01/17 Dicyclomine [Bentyl] 10 mg PO QID 04/28/17 06/01/17 Insulin Glargine,Hum.rec.anlog 6 units SQ DAILY 04/28/17 06/01/17 [Sherif Cortez] Lipase/Protease/Amylase [Lyric Her 1 cap PO AD 04/28/17 06/01/17 36,000 Units Capsule] Lipase/Protease/Amylase [Lyric Her 2 cap PO TIDWM 04/28/17 06/01/17 36,000 Units Capsule] Pantoprazole Sodium 40 mg PO DAILY 04/28/17 06/01/17 Ropinirole HCl [Requip] 2 mg PO TID 04/28/17 06/01/17 Sertraline [Zoloft] 100 mg PO BID 04/28/17 06/01/17 TraZODone 100 - 200 mg PO HS 04/28/17 06/01/17 Previous Rx's Medication Instructions Recorded Ferrous Sulfate 325 mg PO BIDWM #60 tablet 05/01/17 Calcium Carbonate [Tums] 1,000 mg PO TID tab.chew 06/06/17 HYDROcodone/Acet 10/325 mg [[place] 1 each PO Q6H PRN 4 Days #16 tablet 06/06/17 10-325 mg] Insulin DETEMIR [Levemir] 6 unit SQ BID [id number] 06/06/17 hydrOXYzine pamoate [HydrOXYzine 25 mg PO TID PRN 30 Days #90 06/06/17 Pamoate] capsule traZODone [TraZODone] 50 mg PO HS PRN 30 Days #30 tablet 06/06/17 Dicyclomine [Bentyl] 10 mg PO QID PRN #20 capsule 06/14/17 Ondansetron HCl [Zofran] 4 mg PO Q8HR PRN #20 tablet 06/14/17 Hyoscyamine SL [Levsin SL] 0.125 mg SL TID #10 tab.subl 08/06/17 Allergies Allergy/AdvReac Type Severity Reaction Status Date / Time No Known Allergies Allergy Verified 06/14/17 15:28 Psychiatric: Reports: anxiety, depression, suicidal thoughts Past Medical History - Past Medical History Medical history: Reports: diabetes, kidney stones, other Surgical history: Reports: cholecystectomy, other (Pancreatectomy, splenectomy) Psychiatric history: Reports: depression, previous psychiatric hospitalization, other - Social History Smoking Status: Never smoker Smokeless Tobacco Status: No Alcohol use: Reports: occasionally Drug use: Reports: prescription drug abuse Physical Exam - General Limitations: no limitations General appearance: alert, anxious Course Course Narrative: Patient presents to the emergency room. Sign out by the daytime physician Dr. Wilkinson. Patient has been having significant depression as well as thoughts of potential harming themselves. No specific plan at this time. Patient is otherwise clinically stable. See detailed documentation of the physical exam completed by the daytime physician. Patient will be observed in emergency room until psychiatric evaluation is completed. Patient is otherwise clinically stable. One single dose of Ativan was given by mouth while here. Disposition pending the full workup treatment course and evaluation by psychiatric team. - Reevaluation(s) Reevaluation #1: Psychiatric team has evaluated the patient. Patient will be admitted for definitive management. [place] slip will be signed at the request of the psychiatric team consulted the patient has major depressive disorder as well as suicidal ideation with no specific plan. Patient has remained stable to the treatment course is no distress at this time. Admission process will be completed Time: 23:45 Vital Signs Temperature 98.4 F 08/11/17 18:18 Pulse Rate 77 08/11/17 18:18 Respiratory Rate 16 08/11/17 18:18 Blood Pressure 170/79 08/11/17 18:18 O2 Sat by Pulse Oximetry 100 08/11/17 18:18 Temperature 98.4 F 08/11/17 18:18 Pulse Rate 77 08/11/17 18:18 Respiratory Rate 16 08/11/17 18:18 Blood Pressure 170/79 08/11/17 18:18 O2 Sat by Pulse Oximetry 100 08/11/17 18:18 Oxygen Delivery Oxygen Delivery Room Air Medical Decision Making - MDM Narrative Medical decision making narrative: Suicidal ideation without a plan. Psychiatric evaluation - Medical Records Medical records reviewed: Yes I reviewed the patient's medical records. - Lab Data Lab results reviewed: Yes I reviewed the patient's lab results. Result diagrams: 08/11/17 19:31 08/11/17 19:31 Lab Results 08/11/17 08/11/17 08/11/17 Range/Units 18:31 19:04 19:31 WBC 6.9 (4.3-11.1) K/mcL RBC 4.16 L (4.19-5.50) M/mcL Hgb 10.3 L (12.9-16.9) g/dL Hct 31.6 L (37.5-50.1) % MCV 76.0 L (83.0-100.0) fL MCH 24.8 L (28.0-33.3) pg MCHC 32.6 (31.6-35.5) g/dL RDW 18.6 H (11.5-14.5) % Plt Count 508 H (140-400) K/mcL MPV 10.3 (9.4-12.4) fL Immature Gran % 0.3 (0-4) % Seg Neutrophils % 54.5 % Lymphocytes % 30.7 % Monocytes % 11.7 % Eosinophils % 0.9 % Basophils % 1.9 % Neutrophils # 3.8 (1.6-8.9) K/mcL Lymphocytes # 2.1 (0.6-4.6) K/mcL Monocytes # 0.8 (0.0-1.3) K/mcL Eosinophils # 0.1 (0.0-0.6) K/mcL Basophils # 0.1 (0.0-0.2) K/mcL Sodium (136-145) mEq/L Potassium (3.5-5.1) mEq/L Chloride (98-107) mEq/L Carbon Dioxide (23-29) mEq/L BUN (6-20) mg/dL Creatinine (0.70-1.30) mg/dL Est GFR ( Amer) (> 60) Est GFR (Non-Af Amer) (> 60) BUN/Creatinine Ratio (6-26) Glucose (70-105) mg/dL Calculated Osmolality (280-300) Calcium (8.6-10.3) mg/dL Urine Color Yellow (Yellow) Urine Clarity Clear (Clear) Urine pH 6.5 (5.0-8.0) pH Units Ur Specific [place] 1.016 (1.010-1.025) Urine Protein Negative (Neg-Trace) mg/dL Urine Glucose (UA) Normal (Normal) mg/dL Urine Ketones Negative (Negative) mg/dL Urine Blood Large H (Negative) Urine Nitrite Negative (Negative) Urine Bilirubin Negative (Negative) Urine Urobilinogen Normal (Normal) mg/dL Ur Leukocyte Esterase Negative (Negative) Urine Microscopic RBC 15-30 H (0-3) per hpf Calcium Oxalate Crystal Present Salicylates (15.0-30.0) mg/dL Urine Opiates Screen Negative (Cqmhsg=025) ng/mL Acetaminophen (10-30) mcg/mL Ur Barbiturates Screen Negative (Nvewmm=542) ng/mL Ur Phencyclidine Scrn Negative (Cutoff=25) ng/mL Ur Amphetamines Screen Negative (Cabuyz=1699) ng/mL U Benzodiazepines Scrn Negative (Adpvhg=374) ng/mL Urine Cocaine Screen Negative (Cutoff= 300) ng/mL U Marijuana (THC) Screen Negative (Cutoff = 50) ng/mL Ethyl Alcohol (0-10) mg/dL 08/11/17 Range/Units 19:31 WBC (4.3-11.1) K/mcL RBC (4.19-5.50) M/mcL Hgb (12.9-16.9) g/dL Hct (37.5-50.1) % MCV (83.0-100.0) fL MCH (28.0-33.3) pg MCHC (31.6-35.5) g/dL RDW (11.5-14.5) % Plt Count (140-400) K/mcL MPV (9.4-12.4) fL Immature Gran % (0-4) % Seg Neutrophils % % Lymphocytes % % Monocytes % % Eosinophils % % Basophils % % Neutrophils # (1.6-8.9) K/mcL Lymphocytes # (0.6-4.6) K/mcL Monocytes # (0.0-1.3) K/mcL Eosinophils # (0.0-0.6) K/mcL Basophils # (0.0-0.2) K/mcL Sodium 134 L (136-145) mEq/L Potassium 4.7 (3.5-5.1) mEq/L Chloride 102 (98-107) mEq/L Carbon Dioxide 27 (23-29) mEq/L BUN 15 (6-20) mg/dL Creatinine 0.78 (0.70-1.30) mg/dL Est GFR ( Amer) > 60 (> 60) Est GFR (Non-Af Amer) > 60 (> 60) BUN/Creatinine Ratio 19 (6-26) Glucose 97 (70-105) mg/dL Calculated Osmolality 279 L (280-300) Calcium 9.1 (8.6-10.3) mg/dL Urine Color (Yellow) Urine Clarity (Clear) Urine pH (5.0-8.0) pH Units Ur Specific [place] (1.010-1.025) Urine Protein (Neg-Trace) mg/dL Urine Glucose (UA) (Normal) mg/dL Urine Ketones (Negative) mg/dL Urine Blood (Negative) Urine Nitrite (Negative) Urine Bilirubin (Negative) Urine Urobilinogen (Normal) mg/dL Ur Leukocyte Esterase (Negative) Urine Microscopic RBC (0-3) per hpf Calcium Oxalate Crystal Salicylates < 5.0 L (15.0-30.0) mg/dL Urine Opiates Screen (Lyvxvq=783) ng/mL Acetaminophen < 1.0 L (10-30) mcg/mL Ur Barbiturates Screen (Ozznuq=377) ng/mL Ur Phencyclidine Scrn (Cutoff=25) ng/mL Ur Amphetamines Screen (Mxbvds=3341) ng/mL U Benzodiazepines Scrn (Htvynb=404) ng/mL Urine Cocaine Screen (Cutoff= 300) ng/mL U Marijuana (THC) Screen (Cutoff = 50) ng/mL Ethyl Alcohol < 10 (0-10) mg/dL
[2017-08-12] MEDS ORDERED: *HR* LORazepam 1 MG TABLET PO ONE
[2017-08-12] MEDS ORDERED: traZODone 50 MG TABLET PO PRN (00:03)
[2017-08-12] MEDS ORDERED: Haloperidol Lactate 5 MG/ML VIAL IM PRN (00:03)
[2017-08-12] MEDS ORDERED: *HR* LORazepam 2 MG/ML VIAL IM PRN (00:03)
[2017-08-12] MEDS ORDERED: Acetaminophen 325 MG TABLET PO PRN (00:03)
[2017-08-12] MEDS ORDERED: Mag Hydrox/Al Hydrox/Simeth 30 ML UDC PO PRN (00:03)
[2017-08-12] MEDS ORDERED: MOM Conc 10 ML UD.LIQ PO PRN (00:03)
[2017-08-12] MEDS ORDERED: *HR* LORazepam 1 MG TABLET PO PRN (00:03)
[2017-08-12] MEDS ORDERED: Dextrose Gel 15 GM/37.5 ML TUBE PO PRN ×2 (11:26)
[2017-08-12] MEDS ORDERED: hydrOXYzine pamoate 25 MG CAPSULE PO PRN (11:28)
--- NOTE | 2017-08-12 13:57 | Psychiatry History & Physical ---
Date of Encounter: 08/12/17 Time of Encounter: 13:45 History of Present Illness Patient Stated Chief Complaint: I could have taken an overdose Medicare Admission Attestation: For traditional Medicare patients the provided hospital inpatient services are reasonable and necessary and in the case of services not specified as inpatient -only under 42 CFR 419.22 (n), that they are appropriately provided as inpatient services in accordance 42 CFR 412.3. For Critical Access Hospital the patient may reasonably be expected to be discharged or transferred to a hospital within 96 hours after admission to the Critical Access Hospital. Admitted From: Emergency Dept Plans for Post Hospital Care: Home History of Present Illness: Mr. Naidu is a 47 year old male The patient is in his usual state of health and mood and was at home. The patient has been seen previously by Dr. Simpson and he has been seen by me on consult April 2018. Since that period of time the patient had significant problems with pain When I saw him in April I recommend that he go on butrans a transdermal form of Suboxone. Since that time the patient has been seen by his urologist who had prescribed pain medicines then stopped. He had been seen by his cloth beamer who had prescribed pain medicines and had stopped. The patient had gone to see Dr. Willson and had been placed on Suboxone. He did not follow-up with that agency instead he went to [facility] in [facility] [place]. This is not on the state pharmacy report but the patient has been receiving 4 mg Suboxone twice a day. He was under the care of Dr. Zelaya. I called [facility] and I spoke to Dr. Lula Meneses. The patient was present in the room during the conversation he consented to me speaking to Dr. Meneses about treatment and follow-up. I can confirm that the patient has been treated there he receives this Suboxone by going in each day. He must participate in groups random drug screens etc. The patient may be able to return for follow-up on 08/15/2017. The patient for his part has been treated with for major depression and the reader is referred to the most recent discharge summary. That being said the patient feels that his medicine Suboxone may be worsening his symptoms. This is difficult to tell but last night he became very anxious and pacing and he thought that he might take an overdose or rather than calling [facility] he spoke to his mother who advised him to call the squad the emergency squad pick him up and brought him to the emergency department whereupon the patient stated that he felt much better with the Ativan he was ready to go home but if he felt like that again might take an overdose of trazodone. The patient has this in a variety of other medicines at his home so an overdose of medicines would be lethal. The patient has low mood significant anxiety and difficulty with pain. He has been reassured that he does not have stones obstructing the ureters but he claims that he is passing stones. 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 they are radiolucent. The patient feels pain that goes on both sides of the abdomen the flank and sometimes radiates into the pubic area on the left side he denies testicular pain. Patient has significant disturbance of mood and he is seen weekly at [facility]. I discussed with Dr. Gideon fay she said that gabapentin is acceptable. She said that they request a copy of the last MAR to confirm that the last dose was given. Appointments are held early on Friday The patient has stated that he wants to go on methadone but he was told that he must first discuss this with Dr. Zelaya and he must try alternating doses of Suboxone The family history is significant for a maternal grandfather with schizophrenia. A maternal grandmother had problems with taking pills but is otherwise negative. The social history reveals the patient is never he obtained a college degree in business he last worked in 2014 he is applying for disability Review of systems reveals that he is seeing a automobile dealer he no longer has urologist he also has a GI bleed and may need to see gastroenterology Past Med Surg Social Fam HX - Past Medical History Medical history: diabetes, kidney stones, other - Past Psychiatric History Psychiatric history: Reports: previous psychiatric hospitalization Family psychiatric history: Yes Family History of Suicide: None - Past Surgical History Surgical History: cholecystectomy, other - Social History Smoking Status: Never smoker Smokeless Tobacco Status: No Alcohol use: occasionally Drug use: prescription drug abuse - Family History Father Living Status: Hx Family Cardiac Disorders: Yes ([place]) Maternal Grandfather Living Status: Hx Family Cardiac Disorders: Yes ([place]) Sister Hx Family GI Disorders: Yes (possible kidney stones) Medications & Allergies Clomipramine HCl [Anafranil] 25 mg PO HS 03/03/15 [History] Insulin Glargine,Hum.rec.anlog [Toudeloreso Solostar] 6 units SQ BID 04/28/17 [ History] Lipase/Protease/Amylase [Lyric Her 36,000 Units Capsule] 1 cap PO AD 04/28/17 [ History] Lipase/Protease/Amylase [Lyric Her 36,000 Units Capsule] 2 cap PO TIDWM 04/28/17 [History] Pantoprazole Sodium 40 mg PO DAILY 04/28/17 [History] Ropinirole HCl [Requip] 2 mg PO TID PRN 04/28/17 [History] Sertraline [Zoloft] 100 mg PO BID 04/28/17 [History] TraZODone 100 - 200 mg PO HS 04/28/17 [History] Ferrous Sulfate 325 mg PO BIDWM #60 tablet 05/01/17 [Rx] hydrOXYzine pamoate [HydrOXYzine Pamoate] 25 mg PO TID PRN 30 Days #90 capsule 06/06/17 [Rx] Dicyclomine [Bentyl] 10 mg PO QID PRN #20 capsule 06/14/17 [Rx] Hyoscyamine SL [Levsin SL] 0.125 mg SL TID #10 tab.subl 08/06/17 [Rx] 3 Allergy/AdvReac Type Severity Reaction Status Date / Time No Known Allergies Allergy Verified 08/12/17 08:52 Review of Systems Constitutional: Reports: weight change Eyes: Denies: eye pain, vision change Cardiovascular: Denies: chest pain, palpitations, dyspnea on exertion Respiratory: Denies: cough, dyspnea, wheezes Gastrointestinal: Reports: abdominal pain Genitourinary male: Reports: other Musculoskeletal: Reports: back pain, myalgia Integumentary: Denies: rash, lesions, pruritus Neurological: Reports: weakness Psychiatric: Reports: depression, suicidal ideation, hopelessness Endocrine: Reports: heat or cold intolerance Hematologic/Lymphatic: Reports: easy bleeding Allergic/Immunologic: Denies: urticaria, itchy eyes Exam - HEENT Head exam IM: Present: atraumatic Eye exam IM: Present: EOMI, nystagmus ENT exam IM: Present: mucous membranes dry, normal oropharynx, TM's normal bilaterally - Neurological Neurological exam: Present: CN II-XII intact - Respiratory Respiratory exam IM: Present: CTAB - GI/Abdominal GI/Abdominal exam IM: Present: normal bowel sounds - Extremities Extremities exam IM: Present: warm - Skin Skin exam IM: Present: dry - Constitutional Vitals: Temp Pulse Resp BP Pulse Ox 97.4 F L 80 14 119/80 100 08/12/17 08:38 08/12/17 08:38 08/12/17 08:38 08/12/17 08:38 08/11/17 18:18 General appearance: thin - Musculoskeletal Gait: brisk Station: stooped Strength & Tone: mild weakness - Psychiatric Patient Orientation: Yes Person, Yes Time, Yes Place Level of alertness: Alert Behavior: nervous, restless Eye Contact: Maintains Eye Contact Mood Description: Depressed, Anxious Affect description: congruent with mood Speech Volume: Normal Speech pattern: normal rate Language & Vocabulary: consistent with education Thought Process: Logical, Thought Blocking, [place] Thought Content: Yes Suicidal ideation Attention Span Ability: Capable of Focused Attention Memory Description: Grossly Intact Patient Reliability: Questionable Historian Fund of knowledge: Yes above average Intelligence Estimate: Above Avergage Judgment: Limited Insight: Minimal Results - Labs Labs: Laboratory Last Values WBC 6.9 K/mcL (4.3-11.1) 08/11/17 19:31 RBC 4.16 M/mcL (4.19-5.50) L 08/11/17 19:31 Hgb 10.3 g/dL (12.9-16.9) L 08/11/17 19:31 Hct 31.6 % (37.5-50.1) L 08/11/17 19:31 MCV 76.0 fL (83.0-100.0) L 08/11/17 19:31 MCH 24.8 pg (28.0-33.3) L 08/11/17 19:31 MCHC 32.6 g/dL (31.6-35.5) 08/11/17 19:31 RDW 18.6 % (11.5-14.5) H 08/11/17 19:31 Plt Count 508 K/mcL (140-400) H 08/11/17 19:31 MPV 10.3 fL (9.4-12.4) 08/11/17 19:31 Immature Gran % 0.3 % (0-4) 08/11/17 19:31 Seg Neutrophils % 54.5 % 08/11/17 19: Lymphocytes % 30.7 % 08/11/17 19: Monocytes % 11.7 % 08/11/17 19: Eosinophils % 0.9 % 08/11/17 19: Basophils % 1.9 % 08/11/17 19: Neutrophils # 3.8 K/mcL (1.6-8.9) 08/11/17 19: Lymphocytes # 2.1 K/mcL (0.6-4.6) 08/11/17 19: Monocytes # 0.8 K/mcL (0.0-1.3) 08/11/17 19: Eosinophils # 0.1 K/mcL (0.0-0.6) 08/11/17: Basophils # 0.1 K/mcL (0.0-0.2) 08/11/17 19: Sodium 134 mEq/L (136-145) L 08/11/17 19: Potassium 4.7 mEq/L (3.5-5.1) 08/11/17 19: Chloride 102 mEq/L (98-107) 08/11/17 19: Carbon Dioxide 27 mEq/L (23-29) 08/11/17 19: BUN 15 mg/dL (6-20) 08/11/17 19: Creatinine 0.78 mg/dL (0.70-1.30) 08/11/17 19: Est GFR ( Amer) > 60 (> 60) 08/11/17 19: Est GFR (Non-Af Amer) > 60 (> 60) 08/11/17 19: BUN/Creatinine Ratio 19 (6-26) 08/11/17 19: Glucose 97 mg/dL (70-105) 08/11/17 19: Calculated Osmolality 279 (280-300) L 08/11/17: Calcium 9.1 mg/dL (8.6-10.3) 08/11/17 19: Urine Color Yellow (Yellow) 08/11/17 18: Urine Clarity Clear (Clear) 08/11/17 18: Urine pH 6.5 pH Units (5.0-8.0) 08/11/17 18: Ur Specific [place] 1.016 (1.010-1.025) 08/11/17 18:31 Urine Protein Negative mg/dL (Neg-Trace) 08/11/17 18:31 Urine Glucose (UA) Normal mg/dL (Normal) 08/11/17 18:31 Urine Ketones Negative mg/dL (Negative) 08/11/17 18:31 Urine Blood Large (Negative) H 08/11/17 18:31 Urine Nitrite Negative (Negative) 08/11/17 18:31 Urine Bilirubin Negative (Negative) 08/11/17 18:31 Urine Urobilinogen Normal mg/dL (Normal) 08/11/17 18:31 Ur Leukocyte Esterase Negative (Negative) 08/11/17 18:31 Urine Microscopic RBC 15-30 per hpf (0-3) H 08/11/17 18:31 Calcium Oxalate Crystal Present 08/11/17 18:31 Salicylates < 5.0 mg/dL (15.0-30.0) L 08/11/17 19:31 Urine Opiates Screen Negative ng/mL (Fwleqd=635) 08/11/17 19:04 Acetaminophen < 1.0 mcg/mL (10-30) L 08/11/17 19:31 Ur Barbiturates Screen Negative ng/mL (Uocrsd=111) 08/11/17 19:04 Ur Phencyclidine Scrn Negative ng/mL (Cutoff=25) 08/11/17 19:04 Ur Amphetamines Screen Negative ng/mL (Ghyiyf=1454) 08/11/17 19:04 U Benzodiazepines Scrn Negative ng/mL (Zffkkl=712) 08/11/17 19:04 Urine Cocaine Screen Negative ng/mL (Cutoff= 300) 08/11/17 19:04 U Marijuana (THC) Screen Negative ng/mL (Cutoff = 50) 08/11/17 19:04 Ethyl Alcohol < 10 mg/dL (0-10) 08/11/17 19:31 Assessment and Plan (1) Opioid dependence with opioid-induced mood disorder Current visit: Yes Status: Acute Plan: Admit inpatient for safety and stabilization, Close observation Risks, benefits, side effects, alternatives discussed w/pt: Yes Patient agreeable to treatment: Yes Plans for Post Hospital Care: Home Estimated Length of Stay ( Days): 5 (2) Suicidal ideations Current visit: Yes Status: Acute Plan: Admit inpatient for safety and stabilization, Suicide Precautions per unit protocol, Secure weapons Risks, benefits, side effects, alternatives discussed w/pt: Yes Patient agreeable to treatment: Yes Plans for Post Hospital Care: Home (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 Current visit: No Status: Acute Plan: Admit inpatient for safety and stabilization, Encourage participation in unit milieu, Group Therapy Risks, benefits, side effects, alternatives discussed w/pt: Yes Patient agreeable to treatment: Yes Plans for Post Hospital Care: Home Estimated Length of Stay (Days): 5 (4) Chronic pain syndrome Current visit: No Status: Acute Plan: Admit inpatient for safety and stabilization, Close observation, Family/ Supportive other meeting Risks, benefits, side effects, alternatives discussed w/pt: Yes Patient agreeable to treatment: Yes Plans for Post Hospital Care: Home (5) Opioid use disorder, severe, dependence Current visit: No Status: Chronic Plan: Close observation, Monitor appetite Risks, benefits, side effects, alternatives discussed w/pt: Yes Patient agreeable to treatment: Yes Plans for Post Hospital Care: Home
[2017-08-12] MEDS: Gabapentin 100 MG CAPSULE PO SCH ×2 (14:36→21:41)
[2017-08-12] MEDS: Hyoscyamine SL 0.125 MG TAB.SUBL SL SCH ×2 (14:36→21:42)
[2017-08-12] MEDS: hydrOXYzine pamoate 25 MG CAPSULE PO PRN ×2 (15:57→18:35)
[2017-08-12] MEDS: rOPINIRole 1 MG TABLET PO PRN (18:35)
[2017-08-12] MEDS ORDERED: OLANZapine 10 MG TAB.RAPDIS PO ONE (19:47)
[2017-08-12] MEDS ORDERED: Insulin DETEMIR 100 UNIT/ML X5UNITS SQ SCH ×2 (21:00)
[2017-08-12] MEDS: traZODone 50 MG TABLET PO SCH (21:41)
[2017-08-12] MEDS: *HR* Buprenorphine HCl 2 MG SUBLINGUAL TABLET SL SCH (21:42)
[2017-08-12] MEDS: Insulin DETEMIR 100 UNIT/ML X5UNITS SQ SCH (21:42)
[2017-08-13] MEDS: rOPINIRole 1 MG TABLET PO PRN (04:12)
[2017-08-13] MEDS: Gabapentin 100 MG CAPSULE PO SCH ×3 (08:59→21:05)
[2017-08-13] MEDS: Hyoscyamine SL 0.125 MG TAB.SUBL SL SCH ×3 (08:59→21:07)
[2017-08-13] MEDS: *HR* Buprenorphine HCl 2 MG SUBLINGUAL TABLET SL SCH ×2 (08:59→21:05)
[2017-08-13] MEDS: Insulin DETEMIR 100 UNIT/ML X5UNITS SQ SCH ×2 (09:02→21:04)
--- NOTE | 2017-08-13 12:56 | Psychiatry Progress Note ---
Date of Encounter: 08/13/17 Time of Encounter: 13:00 Subjective Interval history: The patient met with me. He had been laying down in bed. He appears nervous and a bit fretful. The patient has indicated that he is worried about the pain and when in pain his brain says that he needs to do something that he is in pain he tries to ignore this or reduce this but cannot. The patient had a variety of maladaptive behaviors last night. This required 10 mg of Zyprexa. The patient has not had his full course of Subutex or of gabapentin. Today he will get the full course. Patient was tested using the cowboy story and abstraction. He had good interpretation of proverbs. The patient discussed his judaism beliefs and has been raised in the [employer]. He is able to say prayers is able to read the Bible is able to offer up as suffering for the spiritual welfare of others. Patient reports that his last hospitalization did talk to the leather polisher and this was helpful. Nonetheless the patient is still distressed and feels uncomfortable. From a nutritional standpoint the patient now has an sure he is significantly underweight. He was reassured that Suboxone is the same as Subutex and a similar side effect profile. The patient was worried because he was given his pills last night and he swallowed the Subutex. He thought he would get the benefit of the medicine he was told that his Subutex will be given twice a day must be under the tongue and hopefully dissolved. When it panic all the patient is given pills as well. The patient and I reviewed the treatment plan to work with Dr. Meneses on August 15. We will try to arrange discharge is close to his appointment is possible Review of Systems Gastrointestinal: Reports: abdominal pain Psychiatric: Reports: depression, anxiety, abnormal sleep pattern, suicidal ideation, change in appetite, difficulty concentrating, hopelessness Results - Vital Signs Vital Signs: Temp Pulse Resp BP Pulse Ox 97.9 F 88 16 103/69 100 08/13/17 09:00 08/13/17 09:00 08/13/17 09:00 08/13/17 09:00 08/11/17 18:18 - Labs Labs: Laboratory Results - last 24 hr 08/12/17 08/13/17 21:42 08:58 POC Glucose 143 H 119 H Assessment and Plan (1) Opioid dependence with opioid-induced mood disorder Current visit: Yes Status: Acute Plan: Continue hospitalization, Close observation, Suicide Precautions per unit protocol Risks, benefits, side effects, alternatives discussed w/pt: Yes Patient agreeable to treatment: Yes (2) Suicidal ideations Current visit: Yes Status: Acute Plan: Continue hospitalization, Close observation, Suicide Precautions per unit protocol Risks, benefits, side effects, alternatives discussed w/pt: Yes Patient agreeable to treatment: Yes (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 Current visit: No Status: Acute Plan: Continue hospitalization, Monitor sleep, Monitor appetite Risks, benefits, side effects, alternatives discussed w/pt: Yes Patient agreeable to treatment: Yes (4) Chronic pain syndrome Current visit: No Status: Acute Plan: Continue hospitalization, Close observation, Encourage participation in unit milieu Risks, benefits, side effects, alternatives discussed w/pt: Yes Patient agreeable to treatment: Yes (5) Opioid use disorder, severe, dependence Current visit: No Status: Chronic Plan: Encourage participation in unit milieu, Monitor sleep Risks, benefits, side effects, alternatives discussed w/pt: Yes Patient agreeable to treatment : Yes Consult Discharge Plan - Plan Additional Instructions: Patient plans to follow up with Dr. Lula Meneses at [facility] on 08/15/2017 for continuation of medication assisted treatment. Referrals: Julito Henriquez [facility] [Outside] - 08/21/17 3:00 pm (The above appoitnemtn is with Manjinder Osorio for outpatient mental health counseling services. You will also see Renuka Canas for outpatient psychiatric assessment and medication management services on 08/29/2017 at 3:00 PM. The above appointment( s) reflects first availability. You may contact the office regularly to check for cancellations that may allow you to be seen sooner. You may also walk-in to the clinic anytime during business hours to be seen on crisis if needed. The 16/12 crisis line provided to you is also always available.) Psychiatry Exam - Constitutional Vitals: Temp Pulse Resp BP Pulse Ox 97.9 F 88 16 103/69 100 08/13/17 09:00 08/13/17 09:00 08/13/17 09:00 08/13/17 09:00 08/11/17 18:18 General appearance: thin - Musculoskeletal Gait: slow Station: stooped Strength & Tone: normal for patient - Psychiatric Patient Orientation: Yes Person, Yes Time, Yes Place, Yes Circumstance Level of alertness: Alert Behavior: anxious, impulsive Psychomotor activity: Slowed Eye Contact: Maintains Eye Contact Mood Description: Depressed, Anxious Affect description: congruent with mood Speech Volume: Soft/Quiet Speech pattern: normal rate, normal rhythm Language & Vocabulary: consistent with education Thought Content: Yes Suicidal ideation, Yes Preoccupation, Yes Somatic delusion , Yes Obsessive thoughts Attention Span Ability: Capable of Sustained Attention Memory Description: Grossly Intact Patient Reliability: Reliable Historian Fund of knowledge: Yes abstraction ability, Yes aware of current events Intelligence Estimate: Above Avergage Judgment: Fair Insight: Partial
[2017-08-13] MEDS: OLANZapine 10 MG TAB.RAPDIS PO SCH (21:05)
[2017-08-13] MEDS: traZODone 50 MG TABLET PO SCH (21:51)
[2017-08-14] MEDS: *HR* Buprenorphine HCl 2 MG SUBLINGUAL TABLET SL SCH ×3 (09:15→21:42)
[2017-08-14] MEDS: Gabapentin 100 MG CAPSULE PO SCH ×4 (09:17→21:42)
[2017-08-14] MEDS: Hyoscyamine SL 0.125 MG TAB.SUBL SL SCH ×3 (09:17→21:42)
[2017-08-14] MEDS: Insulin DETEMIR 100 UNIT/ML X5UNITS SQ SCH ×2 (09:18→21:42)
--- NOTE | 2017-08-14 12:25 | Psychiatry Progress Note ---
Date of Encounter: 08/14/17 Time of Encounter: 12:15 Subjective Interval history: The patient remained isolated he continue to focus on pain he did not attend groups or discuss additional treatment strategies. Today the patient remains focused on Ativan. He is talking about trying to go to another facility. I informed him that he had follow-up with [facility]. The patient called [facility] spoke to the coal miner on the phone with me in the room. Golf Cart Mechanic was able to schedule him at 9:30 tomorrow he will need to bring his MAR. The patient will be increased to gabapentin 200 mg 3 times a day he continued to report anxiety and pacing verified that he is on sertraline 200 mg per day. She was also concerned about his dietary supplement worried that he might have too much sugar. But I reassured him that this was ordered by the medical staff. Last night his mother came to visit Review of Systems Psychiatric: Reports: depression, anxiety, abnormal sleep pattern, change in appetite, hopelessness Results - Vital Signs Vital Signs: Temp Pulse Resp BP Pulse Ox 97.4 F L 61 16 131/67 100 08/13/17 20:07 08/13/17 20:07 08/13/17 20:07 08/13/17 20:07 08/11/17 18:18 - Labs Labs: Laboratory Results - last 24 hr 08/13/17 20:59 POC Glucose 140 H Assessment and Plan (1) Opioid dependence with opioid-induced mood disorder Current visit: Yes Status: Acute Plan: Continue hospitalization, Encourage participation in unit milieu, Family/ Supportive other meeting Risks, benefits, side effects, alternatives discussed w/pt: Yes Patient agreeable to treatment: Yes (2) Suicidal ideations Current visit: Yes Status: Resolved Risks, benefits, side effects, alternatives discussed w/pt: Yes Patient agreeable to treatment: Yes (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 Current visit: No Status: Acute Plan: Continue hospitalization, Group Therapy Risks, benefits, side effects, alternatives discussed w/pt: Yes Patient agreeable to treatment: Yes (4) Chronic pain syndrome Current visit: No Status: Acute Plan: Suicide Precautions per unit protocol, Encourage participation in unit milieu Risks, benefits, side effects, alternatives discussed w/pt: Yes Patient agreeable to treatment: Yes (5) Opioid use disorder, severe, dependence Current visit: No Status: Chronic Plan: Encourage participation in unit milieu Risks, benefits, side effects, alternatives discussed w/pt: Yes Patient agreeable to treatment: Yes Consult Discharge Plan - Plan Additional Instructions: Patient plans to follow up with Dr. Lula Meneses at [place] on 08/15/2017 for continuation of medication assisted treatment. Referrals: Julito Henriquez [facility] [Outside] - 08/21/17 3:00 pm (The above appoitnemtn is with Manjinder Osorio for outpatient mental health counseling services. You will also see Renuka Missael for outpatient psychiatric assessment and medication management services on 08/29/2017 at 3:00 PM. The above appointment( s) reflects first availability. You may contact the office regularly to check for cancellations that may allow you to be seen sooner. You may also walk-in to the clinic anytime during business hours to be seen on crisis if needed. The 16/12 crisis line provided to you is also always available.) Psychiatry Exam - Constitutional Vitals: Temp Pulse Resp BP Pulse Ox 97.4 F L 61 16 131/67 100 08/13/17 20:07 08/13/17 20:07 08/13/17 20:07 08/13/17 20:07 08/11/17 18:18 General appearance: age & developmentally appropriate, thin - Musculoskeletal Gait: slow Station: stooped Strength & Tone: normal for patient - Psychiatric Patient Orientation: Yes Person, Yes Time, Yes Place, Yes Circumstance Level of alertness: Alert Behavior: anxious, impulsive Psychomotor activity: Normal Eye Contact: Maintains Eye Contact Mood Description: Depressed, Anxious Affect description: congruent with mood Speech Volume: Normal Speech pattern: normal rate Language & Vocabulary: consistent with education Thought Process: Intact Thought Content: Yes Preoccupation Perceptual Disturbances: No Auditory hallucinations, No Visual hallucinations Attention Span Ability: Capable of Focused Attention Memory Description: Grossly Intact Patient Reliability: Questionable Historian Fund of knowledge: Yes average Intelligence Estimate: Above A[place]gage Judgment: Fair Insight: Partial
[2017-08-14] MEDS: hydrOXYzine pamoate 25 MG CAPSULE PO PRN ×2 (14:55→19:03)
[2017-08-14] MEDS: OLANZapine 10 MG TAB.RAPDIS PO SCH (21:43)
[2017-08-14] MEDS: traZODone 50 MG TABLET PO SCH (23:12)
--- NOTE | 2017-08-15 08:59 | Discharge Summary ---
Date of Encounter: 08/15/17 Time of Encounter: 08:45 Diagnosis - Discharge Diagnosis (1) Opioid dependence with opioid-induced mood disorder Priority: Secondary Status: Acute (2) Suicidal ideations Priority: Secondary Status: Resolved (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 Priority: Primary Status: Acute (4) Chronic pain syndrome Status: Chronic (5) Opioid use disorder, severe, dependence Status: Chronic Medications - Discharge Medications Prescriptions: Gabapentin [Neurontin] 200 mg PO TID 30 Days #90 capsule OLANZapine [Zyprexa Zydis] 10 mg PO HS 30 Days #30 tab.rapdis Clomipramine HCl [Anafranil] 25 mg PO HS 03/03/15 [History] Insulin Glargine,Hum.rec.anlog [Toujeo Solostar] 6 units SQ BID 04/28/17 [ History] Lipase/Protease/Amylase [Lyric Her 36,000 Units Capsule] 1 cap PO AD 04/28/17 [ History] Lipase/Protease/Amylase [Lyric Her 36,000 Units Capsule] 2 cap PO TIDWM 04/28/17 [History] Pantoprazole Sodium 40 mg PO DAILY 04/28/17 [History] Ropinirole HCl [Requip] 2 mg PO TID PRN 04/28/17 [History] Sertraline [Zoloft] 100 mg PO BID 04/28/17 [History] TraZODone 100 - 200 mg PO HS 04/28/17 [History] Ferrous Sulfate 325 mg PO BIDWM #60 tablet 05/01/17 [Rx] hydrOXYzine pamoate [HydrOXYzine Pamoate] 25 mg PO TID PRN 30 Days #90 capsule 06/06/17 [Rx] Dicyclomine [Bentyl] 10 mg PO QID PRN #20 capsule 06/14/17 [Rx] Hyoscyamine SL [Levsin Sl] 0.125 mg SL TID #10 tab.subl 08/06/17 [Rx] Gabapentin [Neurontin] 200 mg PO TID 30 Days #90 capsule 08/15/17 [Rx] OLANZapine [Zyprexa Zydis] 10 mg PO HS 30 Days #30 tab.rapdis 08/15/17 [Rx] 3 Allergy/AdvReac Type Severity Reaction Status Date / Time No Known Allergies Allergy Verified 08/12/17 08:52 Provider Date of admission: 08/11/17 23:51 Primary care physician: PCP NONE Consults: 08/12/17 11:27 consult to colors custodian [Consult to Nutrition] [CONS] Stat Comment: Consulting Provider: NUTRITION Reason for Dietary Consult: Other Other:: Low BMI 08/14/17 18:08 Consult to Pastoral Services [CONS] Routine Comment: Discharging clinician: Da Castro Psychiatry Exam - Constitutional Vitals: Temp Pulse Resp BP Pulse Ox 97.8 F 68 16 106/73 100 08/14/17 21:00 08/14/17 21:00 08/14/17 21:00 08/14/17 21:00 08/11/17 18:18 General appearance: age & developmentally appropriate, well-groomed, thin - Musculoskeletal Gait: normal Station: stooped Strength & Tone: normal for patient - Psychiatric Patient Orientation: Yes Person, Yes Time, Yes Place Level of alertness: Alert Behavior: calm, cooperative Psychomotor activity: Normal Eye Contact: Maintains Eye Contact Mood Description: Euthymic/stable Affect description: congruent with mood, full range, anxious Speech Volume: Normal Speech pattern: normal rate, normal rhythm, normal tone, fluent, spontaneous Language & Vocabulary: consistent with education Thought Process: Linear, Goal Oriented Thought Content: No Suicidal ideation, No Homicidal ideation, No Overt delusions , Yes Preoccupation Perceptual Disturbances: No Auditory hallucinations, No Visual hallucinations Attention Span Ability: Capable of Focused Attention Memory Description: Grossly Intact Patient Reliability: Reliable Historian Fund of knowledge: Yes abstraction ability, Yes aware of current events Intelligence Estimate: Average Judgment: Fair Insight: Partial Hospital Course Hospital course: Mr. Naidu is a 47 year old male She was admitted with suicidal ideation. The patient had a significant mood disorder and a significant anxiety disorder. He admitted on the unit several times before and it was noted as were worsening. The patient reported difficulty in tolerating Suboxone. Nonetheless the patient has chronic pain and Subutex was used. The patient tolerated 2 mg twice per day. A call was made to Dr. Meneses at [facility] the patient requested a discharge appointment on August 15. The patient tolerated Zyprexa which was added to his antidepressants for augmentation. He tolerated gabapentin at 100 mg 3 times a day and this was increased to 200 mg 3 times a day to help with anxiety much of the anxiety focus was around his health. The patient also has diabetes and is underweight and these were addressed as part of his hospital course. Suicidal ideation resolved and the patient had no plans to kill himself. The patient had a more future oriented approach. Nonetheless he still wants to speak to the staff at [facility] about other treatment options. He is complying with [facility]'s treatment for opiate dependent patients on Suboxone. Further adjustments in dose may be necessary. Patient reported no significant side effects to the regimen of medicines. Nonetheless he was concerned about overall efficacy Does patient wish to continue nicotine replacement upon disc: No - Time Spent with Patient Total time spent providing and/or coordinating discharge services: Less than 30 minutes Assessment and Plan - Patient/Caregiver Discharge Instructions Activity: resume usual activities as tolerated Diet: diabetic diet Additional Instructions: Patient plans to follow up with Dr. Lula Meneses at [facility] on 08/15/2017 at 9:30am for continuation of medication assisted treatment. - Follow up Plan Follow up with: Julito Henriquez [facility] [Outside] - 08/21/17 3:00 pm (The above appoitnemtn is with Manjinder Osorio for outpatient mental health counseling services. You will also see Renuka Canas for outpatient psychiatric assessment and medication management services on 08/29/2017 at 3:00 PM. The above appointment( s) reflects first availability. You may contact the office regularly to check for cancellations that may allow you to be seen sooner. You may also walk-in to the clinic anytime during business hours to be seen on crisis if needed. The 24/ crisis line provided to you is also always available.) Functional capacity at discharge: independent ambulation Overall status at discharge: patient is back to baseline Disposition: Home, Self-Care Quality - Multiple Antipsychotics Patient discharged on 2 or more antipsychotic medications: No Procedures - Procedures Procedures: Medication Management, Crisis Stabilization, Supportive Therapy, Group Therapy, Psychoeducational Therapy
[2017-08-15] MEDS: Gabapentin 100 MG CAPSULE PO SCH (09:17)
[2017-08-15] MEDS: *HR* Buprenorphine HCl 2 MG SUBLINGUAL TABLET SL SCH (09:17)
[2017-08-15 09:18] VITALS: BP 129/83
[2017-08-15] MEDS: Hyoscyamine SL 0.125 MG TAB.SUBL SL SCH (09:18)
[2017-08-15] MEDS: Insulin DETEMIR 100 UNIT/ML X5UNITS SQ SCH (09:20)
== END 2017-08-15 10:10 | disposition home or self-care (01) | DRG 773 ==
LOC: EMEROO 18:17 → 1ANU 23:51
PROVIDERS: ADMIT Psychiatry & Neurology Forensic Psychiatry; ATTEND Psychiatry & Neurology Forensic Psychiatry

== ENCOUNTER 2018-12-29 11:25 | Inpatient (IN) ==
[2018-12-29 12:20] LABS: Basophils # 0.1 K/mcL (0.0-0.2); Basophils % 1.1 %; Eosinophils # 0.1 K/mcL (0.0-0.6); Eosinophils % 1.3 %; Hematocrit 43.3 % (37.5-50.1); Hemoglobin 14.5 g/dL (12.9-16.9); Immature Granulocytes % 0.3 % (0-4); Lymphocytes # 1.6 K/mcL (0.6-4.6); Mean Corpuscular HGB Conc 33.5 g/dL (31.6-35.5); Mean Corpuscular Hemoglobin 32.8 pg (28.0-33.3); Mean Platelet Volume 10.6 fL (9.4-12.4); Monocytes # 0.8 K/mcL (0.0-1.3); Monocytes % 10.6 %; Neutrophils # 4.6 K/mcL (1.6-8.9); Platelet Count 374 K/mcL (140-400); Red Blood Count 4.42 M/mcL (4.19-5.50); Red Cell Distribution Width 13.9 % (11.5-14.5); Segmented Neutrophils % 64.7 %; White Blood Count 7.1 K/mcL (4.3-11.1)
[2018-12-29 12:39] LABS: Acetaminophen < 10 mcg/mL (10-20); BUN/Creatinine Ratio 20 (6-26); Blood Urea Nitrogen 19 mg/dL (6-20); Calcium 9.4 mg/dL (8.6-10.3); Carbon Dioxide 27 mEq/L (23-29); Chloride 102 mEq/L (98-107); Ethanol < 10 mg/dL (Less than 10); Glucose 242 mg/dL (70-105); Osmolality,Calculated 292 (280-300); Potassium 4.5 mEq/L (3.5-5.1); Salicylate < 2.5 mg/dL (15.0-30.0); Sodium 136 mEq/L (136-145); eGFR For African Americans > 60 (> 60); eGFR For Non-African Americans > 60 (> 60)
[2018-12-29 12:43] LABS: Bilirubin,Urine Negative (Negative); Blood,Urine Negative (Negative); Clarity,Urine Cloudy (Clear); Color,Urine Yellow (Yellow); Glucose,Urine (UA) 500 mg/dL (Normal); Ketones,Urine Negative (Negative); Leukocyte Esterase,Urine Negative (Negative); Nitrite,Urine Negative (Negative); PH,Urine 5.5 pH Units (5.0-8.0); Protein,Urine Negative (Neg-Trace); Specific Gravity,Urine 1.026 (1.010-1.025); Urobilinogen,Urine Normal (Normal)
[2018-12-29 12:47] LABS: Bacteria,Urine Few per hpf (None-Few); Hyaline Casts,Urine None Seen per lpf (None-Few); Squamous Epithelial Cell,Urine Few per lpf (None-Few); WBC,Urine 0-3 per hpf (0-3)
[2018-12-29 12:49] LABS: Amphetamine Screen,Urine Negative ng/mL (Cutoff=1000); Barbiturate Screen,Urine Negative ng/mL (Cutoff=200); Benzodiazepines Screen,Urine Negative ng/mL (Cutoff=200); Cannabinoid Screen,Urine Negative ng/mL (Cutoff = 50); Cocaine Screen,Urine Negative ng/mL (Cutoff= 300); Opiate Screen,Urine Negative ng/mL (Cutoff=300); Phencyclidine Screen,Urine Negative ng/mL (Cutoff=25)
[2018-12-29 13:12] LABS: Calcium Oxalate Crystals,Urine Present; RBC,Urine 0-3 per hpf (0-3)
[2018-12-29] MEDS ORDERED: *HR* LORazepam 1 MG TABLET PO ONE (14:06)
--- NOTE | 2018-12-29 14:25 | Emergency Department Note ---
Disposition Clinical Impression: Suicidal ideation, Homicidal ideation Disposition: Admitted As Inpatient Condition: Good Time of Disposition: 00:00 Psych HPI - General Chief Complaint: ED Psychiatric Symptoms Stated Complaint: SI/HI Time Seen by Provider: 12/29/18 11:34 Source: patient, family Limitations: no limitations Nursing Notes Reviewed: Yes Vital Signs Reviewed: Yes - History of Present Illness HPI Narrative: 48-year-old white male with history of OCD that presents to emergency room complaining of suicidal ideations in addition to positive harming his mother. Patient states that his plan is possible overdose or cutting himself. Patient has admitted to wanting to stop his mother. Patient does state that he has severe OCD and has gotten progressively worse. Patient denies any acute sugars at this time. Patient has attempted in the past but has not ingested any medications or dirt any trauma. Patient states that he spoke with his psychiatrist through referred him into the emergency room for possible transfer to [facility] for adjustments in his medications. Pt complaint: suicidal ideation Onset (ago): week(s) Duration: constant History of similar episodes: Yes Improves with: none Worsens with: none Alleged intoxication: No Associated Psychiatric Symptoms: other (ocd) Associated symptoms: Reports: denies other symptoms Traumatic symptoms: denies traumatic injury Treatments prior to arrival: other (spoke to psyc) Self harm or harm to others: admits thoughts of self harm, has plan, admits thoughts of harming others - Related Data Home Medications Medication Instructions Recorded Confirmed Clomipramine HCl [Anafranil] 50 mg PO HS 03/03/15 01/07/19 Lipase/Protease/Amylase [Lyric Her 1 cap PO AD 04/28/17 01/07/19 36,000 Units Capsule] Lipase/Protease/Amylase [Lyric Her 3 cap PO TIDWM 04/28/17 01/07/19 36,000 Units Capsule] Pantoprazole Sodium 40 mg PO DAILY 04/28/17 01/07/19 Insulin Degludec [Tresiba] 18 unit SQ DAILY 12/29/18 01/07/19 Insulin LISPRO [Admelog] 0 unit SQ TIDWM 12/29/18 01/07/19 OXcarbazepine [Oxcarbazepine] 300 mg PO 1400 12/29/18 01/07/19 OXcarbazepine [Oxcarbazepine] 600 mg PO BID 12/29/18 01/07/19 Trazodone HCl 200 mg PO HS 12/29/18 01/07/19 Previous Rx's Medication Instructions Recorded Benztropine [Cogentin] 0.5 mg PO HS #30 tablet 01/04/19 Sertraline [Zoloft] 250 mg PO DAILY #90 tablet 01/04/19 risperiDONE [RisperDAL] 1 mg PO QAM #30 tablet 01/04/19 risperiDONE [RisperDAL] 2 mg PO HS #60 tablet 01/04/19 Allergies Allergy/AdvReac Type Severity Reaction Status Date / Time No Known Allergies Allergy Verified 10/18/18 18:47 All systems ED: reviewed and negative except as stated. Past Medical History - Past Medical History Medical history: Reports: diabetes, kidney stones, other Surgical history: Reports: cholecystectomy, other Psychiatric history: Reports: anxiety, depression, previous psychiatric hospitalization - Social History Smoking Status: Never smoker Smokeless Tobacco Status: No Alcohol use: Reports: occasionally Drug use: Reports: prescription drug abuse Physical Exam - General Limitations: no limitations General appearance: alert - Head Head exam: atraumatic, normocephalic, normal inspection - Eye Eye exam: Present: normal appearance, PERRL, EOMI - ENT ENT exam: normal exam, normal oropharynx, mucous membranes moist - Neck Neck exam: Present: normal inspection - Chest Chest inspection: Present: normal inspection, symmetric chest wall rise - Respiratory Respiratory exam: Present: normal lung sounds bilaterally - Cardiovascular Cardiovascular exam: Present: regular rate, normal rhythm - Abdominal Exam Abdominal exam: Present: soft, Non-Tender - Extremities Exam Extremities exam: Present: normal inspection, normal capillary refill - Expanded Lower Extremity Exam Neurovascular/Tendon exam: Present: normal capillary refill - Back Exam Back exam: Present: normal inspection - Neurological Exam Neurological exam: Present: alert, oriented X3 - Psychiatric Psychiatric exam: Present: anxious - Skin Skin exam: Present: warm, dry Course Vital Signs Temperature 98.9 F 12/29/18 11:27 Pulse Rate 91 12/29/18 11:27 Respiratory Rate 16 12/29/18 11:27 Blood Pressure 125/78 12/29/18 11:27 O2 Sat by Pulse Oximetry 98 12/29/18 11:27 Temperature 97.4 F L 01/04/19 09:00 Pulse Rate 126 01/04/19 09:00 Respiratory Rate 98 01/04/19 09:00 Blood Pressure 95/62 01/04/19 09:00 O2 Sat by Pulse Oximetry 98 01/04/19 09:00 Oxygen Delivery Oxygen Delivery Room Air Psych - MDM Narrative Medical decision making narrative: Patient awaiting [facility] reassessment. Blood sugar was elevated and she was given a liter of fluid." We checked [id number] and begin sliding scale if necessary This patient's care has been transferred to and accepted by Dr. Hanks. We discussed: the patient's chief complaint; labs and imaging that have been completed and those that are still pending; procedures that have been completed and those remaining to be done; any treatment provided and the patient's response to treatment; any significant change in condition; input from consultants if any; the treatment plan prior to the transfer of care. The accepting physician will follow up on all pending labs and imaging and make any necessary changes to the current impression and/or treatment plan. The accepting physician is now responsible for the patient's care and final disposition. - Differential Diagnosis Likely: acute psychosis, chronic psychiatric disease, suicidal ideation, bipolar disorder, depression, drug-induced psychotic disorder, acute anxiety state, hyperventilation, panic disorder, associated medical condition - Lab Data Result diagrams: 12/31/18 12:21 12/31/18 12:22 Lab Results 12/29/18 12/29/18 12/29/18 Range/Units 11:42 11:42 12:04 WBC 7.1 (4.3-11.1) K/mcL RBC 4.42 (4.19-5.50) M/mcL Hgb 14.5 (12.9-16.9) g/dL Hct 43.3 (37.5-50.1) % MCV 98.0 (83.0-100.0) fL MCH 32.8 (28.0-33.3) pg MCHC 33.5 (31.6-35.5) g/dL RDW 13.9 (11.5-14.5) % Plt Count 374 (140-400) K/mcL MPV 10.6 (9.4-12.4) fL Immature Gran % 0.3 (0-4) % Seg Neutrophils % 64.7 % Lymphocytes % 22.0 % Monocytes % 10.6 % Eosinophils % 1.3 % Basophils % 1.1 % Neutrophils # 4.6 (1.6-8.9) K/mcL Lymphocytes # 1.6 (0.6-4.6) K/mcL Monocytes # 0.8 (0.0-1.3) K/mcL Eosinophils # 0.1 (0.0-0.6) K/mcL Basophils # 0.1 (0.0-0.2) K/mcL Sodium 136 (136-145) mEq/L Potassium 4.5 (3.5-5.1) mEq/L Chloride 102 (98-107) mEq/L Carbon Dioxide 27 (23-29) mEq/L BUN 19 (6-20) mg/dL Creatinine 0.93 (0.70-1.30) mg/dL Est GFR ( Amer) > 60 (> 60) Est GFR (Non-Af Amer) > 60 (> 60) BUN/Creatinine Ratio 20 (6-26) Glucose 242 H (70-105) mg/dL POC Glucose (70-99) mg/dL Calculated Osmolality 292 (280-300) Calcium 9.4 (8.6-10.3) mg/dL Urine Color Yellow (Yellow) Urine Clarity Cloudy A (Clear) Urine pH 5.5 (5.0-8.0) pH Units Ur Specific [place] 1.026 H (1.010-1.025) Urine Protein Negative (Neg-Trace) mg/dL Urine Glucose (UA) 500 H (Normal) mg/dL Urine Ketones Negative (Negative) mg/dL Urine Blood Negative (Negative) Urine Nitrite Negative (Negative) Urine Bilirubin Negative (Negative) Urine Urobilinogen Normal (Normal) mg/dL Ur Leukocyte Esterase Negative (Negative) Urine Microscopic RBC 0-3 (0-3) per hpf Urine Microscopic WBC 0-3 (0-3) per hpf Ur Squamous Epith Cells Few (None-Few) per lpf Calcium Oxalate Crystal Present Urine Bacteria Few (None-Few) per hpf Hyaline Casts None Seen (None-Few) per lpf Salicylates < 2.5 L (15.0-30.0) mg/dL Urine Opiates Screen (Hxgaki=689) ng/mL Ur Buprenorphine Scrn (Cutoff=5) ng/mL Acetaminophen < 10 L (10-20) mcg/mL Ur Barbiturates Screen (Nexnoe=448) ng/mL Ur Phencyclidine Scrn (Cutoff=25) ng/mL Ur Amphetamines Screen (Syzuue=7574) ng/mL U Benzodiazepines Scrn (Iofcnz=076) ng/mL Urine Cocaine Screen (Cutoff= 300) ng/mL U Marijuana (THC) Screen (Cutoff = 50) ng/mL Ur Drug Screen Interp Ethyl Alcohol < 10 (Less than 10) mg/dL 12/29/18 12/29/18 12/29/18 Range/Units 12:04 18:53 22:31 WBC (4.3-11.1) K/mcL RBC (4.19-5.50) M/mcL Hgb (12.9-16.9) g/dL Hct (37.5-50.1) % MCV (83.0-100.0) fL MCH (28.0-33.3) pg MCHC (31.6-35.5) g/dL RDW (11.5-14.5) % Plt Count (140-400) K/mcL MPV (9.4-12.4) fL Immature Gran % (0-4) % Seg Neutrophils % % Lymphocytes % % Monocytes % % Eosinophils % % Basophils % % Neutrophils # (1.6-8.9) K/mcL Lymphocytes # (0.6-4.6) K/mcL Monocytes # (0.0-1.3) K/mcL Eosinophils # (0.0-0.6) K/mcL Basophils # (0.0-0.2) K/mcL Sodium (136-145) mEq/L Potassium (3.5-5.1) mEq/L Chloride (98-107) mEq/L Carbon Dioxide (23-29) mEq/L BUN (6-20) mg/dL Creatinine (0.70-1.30) mg/dL Est GFR ( Amer) (> 60) Est GFR (Non-Af Amer) (> 60) BUN/Creatinine Ratio (6-26) Glucose (70-105) mg/dL POC Glucose 242 H 233 H (70-99) mg/dL Calculated Osmolality (280-300) Calcium (8.6-10.3) mg/dL Urine Color (Yellow) Urine Clarity (Clear) Urine pH (5.0-8.0) pH Units Ur Specific [place] (1.010-1.025) Urine Protein (Neg-Trace) mg/dL Urine Glucose (UA) (Normal) mg/dL Urine Ketones (Negative) mg/dL Urine Blood (Negative) Urine Nitrite (Negative) Urine Bilirubin (Negative) Urine Urobilinogen (Normal) mg/dL Ur Leukocyte Esterase (Negative) Urine Microscopic RBC (0-3) per hpf Urine Microscopic WBC (0-3) per hpf Ur Squamous Epith Cells (None-Few) per lpf Calcium Oxalate Crystal Urine Bacteria (None-Few) per hpf Hyaline Casts (None-Few) per lpf Salicylates (15.0-30.0) mg/dL Urine Opiates Screen Negative (Nexfnm=769) ng/mL Ur Buprenorphine Scrn Negative (Cutoff=5) ng/mL Acetaminophen (10-20) mcg/mL Ur Barbiturates Screen Negative (Rffxri=955) ng/mL Ur Phencyclidine Scrn Negative (Cutoff=25) ng/mL Ur Amphetamines Screen Negative (Xghetn=9305) ng/mL U Benzodiazepines Scrn Negative (Frjxqg=293) ng/mL Urine Cocaine Screen Negative (Cutoff= 300) ng/mL U Marijuana (THC) Screen Negative (Cutoff = 50) ng/mL Ur Drug Screen Interp See Below Ethyl Alcohol (Less than 10) mg/dL 12/30/18 12/30/18 12/30/18 Range/Units 02:49 06:44 11:39 WBC (4.3-11.1) K/mcL RBC (4.19-5.50) M/mcL Hgb (12.9-16.9) g/dL Hct (37.5-50.1) % MCV (83.0-100.0) fL MCH (28.0-33.3) pg MCHC (31.6-35.5) g/dL RDW (11.5-14.5) % Plt Count (140-400) K/mcL MPV (9.4-12.4) fL Immature Gran % (0-4) % Seg Neutrophils % % Lymphocytes % % Monocytes % % Eosinophils % % Basophils % % Neutrophils # (1.6-8.9) K/mcL Lymphocytes # (0.6-4.6) K/mcL Monocytes # (0.0-1.3) K/mcL Eosinophils # (0.0-0.6) K/mcL Basophils # (0.0-0.2) K/mcL Sodium (136-145) mEq/L Potassium (3.5-5.1) mEq/L Chloride (98-107) mEq/L Carbon Dioxide (23-29) mEq/L BUN (6-20) mg/dL Creatinine (0.70-1.30) mg/dL Est GFR ( Amer) (> 60) Est GFR (Non-Af Amer) (> 60) BUN/Creatinine Ratio (6-26) Glucose (70-105) mg/dL POC Glucose 158 H 166 H 162 H (70-99) mg/dL Calculated Osmolality (280-300) Calcium (8.6-10.3) mg/dL Urine Color (Yellow) Urine Clarity (Clear) Urine pH (5.0-8.0) pH Units Ur Specific [place] (1.010-1.025) Urine Protein (Neg-Trace) mg/dL Urine Glucose (UA) (Normal) mg/dL Urine Ketones (Negative) mg/dL Urine Blood (Negative) Urine Nitrite (Negative) Urine Bilirubin (Negative) Urine Urobilinogen (Normal) mg/dL Ur Leukocyte Esterase (Negative) Urine Microscopic RBC (0-3) per hpf Urine Microscopic WBC (0-3) per hpf Ur Squamous Epith Cells (None-Few) per lpf Calcium Oxalate Crystal Urine Bacteria (None-Few) per hpf Hyaline Casts (None-Few) per lpf Salicylates (15.0-30.0) mg/dL Urine Opiates Screen (Cdjuvh=030) ng/mL Ur Buprenorphine Scrn (Cutoff=5) ng/mL Acetaminophen (10-20) mcg/mL Ur Barbiturates Screen (Vfnauh=870) ng/mL Ur Phencyclidine Scrn (Cutoff=25) ng/mL Ur Amphetamines Screen (Ergnpm=7967) ng/mL U Benzodiazepines Scrn (Kemzne=597) ng/mL Urine Cocaine Screen (Cutoff= 300) ng/mL U Marijuana (THC) Screen (Cutoff = 50) ng/mL Ur Drug Screen Interp Ethyl Alcohol (Less than 10) mg/dL Psychiatric Medical Clearance - Medical Clearance Checklist Does the patient have a NEW psychiatric condition?: No Any history of medical issues?: Yes Medical History: No Social History Section defined Any abnormal vital signs prior to transfer?: No Current Vitals: Last Vital Signs Temp 97.4 F L 01/04/19 09:00 Pulse 126 01/04/19 09:00 Resp 98 01/04/19 09:00 BP 95/62 01/04/19 09:00 Pulse Ox 98 01/04/19 09:00 Is the patient intoxicated or cognitively impaired?: No Any abnormalities on the physical exam?: No Any abnormal labs?: Yes (Elevation in blood sugar) Abnormal Labs: Abnormal lab results Glucose 242 mg/dL (70-105) H 12/29/18 11:42 POC Glucose 162 mg/dL (70-99) H 12/30/18 11:39 Urine Clarity Cloudy (Clear) A 12/29/18 12:04 Ur Specific [place] 1.026 (1.010-1.025) H 12/29/18 12:04 Urine Glucose (UA) 500 mg/dL (Normal) H 12/29/18 12:04 Salicylates < 2.5 mg/dL (15.0-30.0) L 12/29/18 11:42 Acetaminophen < 10 mcg/mL (10-20) L 12/29/18 11:42 Is the patient ambulatory?: Yes Is the patient a fall risk?: No Any acute medical condition require Tx prior to transfer?: No Statement of Medical Clearance: I have evaluated the patient, reviewed diagnostic information, and certify that the patient's medical condition is sufficiently stable that transfer to the psychiatric unit does not pose a significant risk of deterioration.
[2018-12-29] MEDS ORDERED: 0.9 % Sodium Chloride 1,000 ML IV ONE (15:02)
[2018-12-30] MEDS: traZODone 50 MG TABLET PO SCH ×3 (03:24→20:56)
--- NOTE | 2018-12-30 07:30 | Emergency Department Note ---
Disposition Clinical Impression: Suicidal ideation, Homicidal ideation Disposition: Admitted As Inpatient Condition: Good Time of Disposition: 16:10 General Adult HPI - General Chief complaint: ED Psychiatric Symptoms Stated complaint: SI/HI Time Seen by Provider: 12/29/18 11:34 Source: patient, family Limitations: no limitations - History of Present Illness Pain Scale: 0 - Related Data Home Medications Medication Instructions Recorded Confirmed Clomipramine HCl [Anafranil] 50 mg PO HS 03/03/15 12/29/18 Lipase/Protease/Amylase [Lyric Her 1 cap PO AD 04/28/17 12/29/18 36,000 Units Capsule] Lipase/Protease/Amylase [Lyric Her 2 cap PO TIDWM 04/28/17 12/29/18 36,000 Units Capsule] Pantoprazole Sodium 40 mg PO DAILY 04/28/17 12/29/18 Insulin Degludec [Tresiba] 18 unit SQ DAILY 12/29/18 12/29/18 Insulin LISPRO [Admelog] 0 unit SQ TIDWM 12/29/18 12/29/18 OXcarbazepine [Oxcarbazepine] 300 mg PO 1400 12/29/18 12/29/18 OXcarbazepine [Oxcarbazepine] 600 mg PO BID 12/29/18 12/29/18 RisperiDONE [Risperdal] 0.5 mg PO BID 12/29/18 12/29/18 Sertraline [Zoloft] 200 mg PO DAILY 12/29/18 12/29/18 Trazodone HCl 100 - 200 mg PO HS 12/29/18 12/29/18 Allergies Allergy/AdvReac Type Severity Reaction Status Date / Time No Known Allergies Allergy Verified 10/18/18 18:47 Past Medical History - Past Medical History Medical history: Reports: diabetes, kidney stones, other Surgical history: Reports: cholecystectomy, other Psychiatric history: Reports: anxiety, depression, previous psychiatric hospitalization - Social History Smoking Status: Never smoker Smokeless Tobacco Status: No Alcohol use: Reports: occasionally Drug use: Reports: prescription drug abuse Physical Exam - General Limitations: no limitations General appearance: alert Course Vital Signs Temperature 98.9 F 12/29/18 11:27 Pulse Rate 91 12/29/18 11:27 Respiratory Rate 16 12/29/18 11:27 Blood Pressure 125/78 12/29/18 11:27 O2 Sat by Pulse Oximetry 98 12/29/18 11:27 Temperature 98.1 F 12/30/18 11:41 Pulse Rate 65 12/30/18 11:41 Respiratory Rate 17 12/30/18 11:41 Blood Pressure 152/75 12/30/18 11:41 O2 Sat by Pulse Oximetry 98 12/30/18 11:41 Oxygen Delivery Oxygen Delivery Room Air Medical Decision Making - Lab Data Result diagrams: 12/29/18 11:42 12/29/18 11:42 Lab Results 12/29/18 12/29/18 12/29/18 Range/Units 11:42 11:42 12:04 WBC 7.1 (4.3-11.1) K/mcL RBC 4.42 (4.19-5.50) M/mcL Hgb 14.5 (12.9-16.9) g/dL Hct 43.3 (37.5-50.1) % MCV 98.0 (83.0-100.0) fL MCH 32.8 (28.0-33.3) pg MCHC 33.5 (31.6-35.5) g/dL RDW 13.9 (11.5-14.5) % Plt Count 374 (140-400) K/mcL MPV 10.6 (9.4-12.4) fL Immature Gran % 0.3 (0-4) % Seg Neutrophils % 64.7 % Lymphocytes % 22.0 % Monocytes % 10.6 % Eosinophils % 1.3 % Basophils % 1.1 % Neutrophils # 4.6 (1.6-8.9) K/mcL Lymphocytes # 1.6 (0.6-4.6) K/mcL Monocytes # 0.8 (0.0-1.3) K/mcL Eosinophils # 0.1 (0.0-0.6) K/mcL Basophils # 0.1 (0.0-0.2) K/mcL Sodium 136 (136-145) mEq/L Potassium 4.5 (3.5-5.1) mEq/L Chloride 102 (98-107) mEq/L Carbon Dioxide 27 (23-29) mEq/L BUN 19 (6-20) mg/dL Creatinine 0.93 (0.70-1.30) mg/dL Est GFR ( Amer) > 60 (> 60) Est GFR (Non-Af Amer) > 60 (> 60) BUN/Creatinine Ratio 20 (6-26) Glucose 242 H (70-105) mg/dL POC Glucose (70-99) mg/dL Calculated Osmolality 292 (280-300) Calcium 9.4 (8.6-10.3) mg/dL Urine Color Yellow (Yellow) Urine Clarity Cloudy A (Clear) Urine pH 5.5 (5.0-8.0) pH Units Ur Specific [place] 1.026 H (1.010-1.025) Urine Protein Negative (Neg-Trace) mg/dL Urine Glucose (UA) 500 H (Normal) mg/dL Urine Ketones Negative (Negative) mg/dL Urine Blood Negative (Negative) Urine Nitrite Negative (Negative) Urine Bilirubin Negative (Negative) Urine Urobilinogen Normal (Normal) mg/dL Ur Leukocyte Esterase Negative (Negative) Urine Microscopic RBC 0-3 (0-3) per hpf Urine Microscopic WBC 0-3 (0-3) per hpf Ur Squamous Epith Cells Few (None-Few) per lpf Calcium Oxalate Crystal Present Urine Bacteria Few (None-Few) per hpf Hyaline Casts None Seen (None-Few) per lpf Salicylates < 2.5 L (15.0-30.0) mg/dL Urine Opiates Screen (Nsrvjf=540) ng/mL Ur Buprenorphine Scrn (Cutoff=5) ng/mL Acetaminophen < 10 L (10-20) mcg/mL Ur Barbiturates Screen (Khiwsf=028) ng/mL Ur Phencyclidine Scrn (Cutoff=25) ng/mL Ur Amphetamines Screen (Evalgd=5601) ng/mL U Benzodiazepines Scrn (Zgydbn=519) ng/mL Urine Cocaine Screen (Cutoff= 300) ng/mL U Marijuana (THC) Screen (Cutoff = 50) ng/mL Ur Drug Screen Interp Ethyl Alcohol < 10 (Less than 10) mg/dL 12/29/18 12/29/18 12/29/18 Range/Units 12:04 18:53 22:31 WBC (4.3-11.1) K/mcL RBC (4.19-5.50) M/mcL Hgb (12.9-16.9) g/dL Hct (37.5-50.1) % MCV (83.0-100.0) fL MCH (28.0-33.3) pg MCHC (31.6-35.5) g/dL RDW (11.5-14.5) % Plt Count (140-400) K/mcL MPV (9.4-12.4) fL Immature Gran % (0-4) % Seg Neutrophils % % Lymphocytes % % Monocytes % % Eosinophils % % Basophils % % Neutrophils # (1.6-8.9) K/mcL Lymphocytes # (0.6-4.6) K/mcL Monocytes # (0.0-1.3) K/mcL Eosinophils # (0.0-0.6) K/mcL Basophils # (0.0-0.2) K/mcL Sodium (136-145) mEq/L Potassium (3.5-5.1) mEq/L Chloride (98-107) mEq/L Carbon Dioxide (23-29) mEq/L BUN (6-20) mg/dL Creatinine (0.70-1.30) mg/dL Est GFR ( Amer) (> 60) Est GFR (Non-Af Amer) (> 60) BUN/Creatinine Ratio (6-26) Glucose (70-105) mg/dL POC Glucose 242 H 233 H (70-99) mg/dL Calculated Osmolality (280-300) Calcium (8.6-10.3) mg/dL Urine Color (Yellow) Urine Clarity (Clear) Urine pH (5.0-8.0) pH Units Ur Specific [place] (1.010-1.025) Urine Protein (Neg-Trace) mg/dL Urine Glucose (UA) (Normal) mg/dL Urine Ketones (Negative) mg/dL Urine Blood (Negative) Urine Nitrite (Negative) Urine Bilirubin (Negative) Urine Urobilinogen (Normal) mg/dL Ur Leukocyte Esterase (Negative) Urine Microscopic RBC (0-3) per hpf Urine Microscopic WBC (0-3) per hpf Ur Squamous Epith Cells (None-Few) per lpf Calcium Oxalate Crystal Urine Bacteria (None-Few) per hpf Hyaline Casts (None-Few) per lpf Salicylates (15.0-30.0) mg/dL Urine Opiates Screen Negative (Yxtfew=855) ng/mL Ur Buprenorphine Scrn Negative (Cutoff=5) ng/mL Acetaminophen (10-20) mcg/mL Ur Barbiturates Screen Negative (Capemo=482) ng/mL Ur Phencyclidine Scrn Negative (Cutoff=25) ng/mL Ur Amphetamines Screen Negative (Ywolfi=0058) ng/mL U Benzodiazepines Scrn Negative (Yctkwd=758) ng/mL Urine Cocaine Screen Negative (Cutoff= 300) ng/mL U Marijuana (THC) Screen Negative (Cutoff = 50) ng/mL Ur Drug Screen Interp See Below Ethyl Alcohol (Less than 10) mg/dL 12/30/18 12/30/18 Range/Units 06:44 11:39 WBC (4.3-11.1) K/mcL RBC (4.19-5.50) M/mcL Hgb (12.9-16.9) g/dL Hct (37.5-50.1) % MCV (83.0-100.0) fL MCH (28.0-33.3) pg MCHC (31.6-35.5) g/dL RDW (11.5-14.5) % Plt Count (140-400) K/mcL MPV (9.4-12.4) fL Immature Gran % (0-4) % Seg Neutrophils % % Lymphocytes % % Monocytes % % Eosinophils % % Basophils % % Neutrophils # (1.6-8.9) K/mcL Lymphocytes # (0.6-4.6) K/mcL Monocytes # (0.0-1.3) K/mcL Eosinophils # (0.0-0.6) K/mcL Basophils # (0.0-0.2) K/mcL Sodium (136-145) mEq/L Potassium (3.5-5.1) mEq/L Chloride (98-107) mEq/L Carbon Dioxide (23-29) mEq/L BUN (6-20) mg/dL Creatinine (0.70-1.30) mg/dL Est GFR ( Amer) (> 60) Est GFR (Non-Af Amer) (> 60) BUN/Creatinine Ratio (6-26) Glucose (70-105) mg/dL POC Glucose 166 H 162 H (70-99) mg/dL Calculated Osmolality (280-300) Calcium (8.6-10.3) mg/dL Urine Color (Yellow) Urine Clarity (Clear) Urine pH (5.0-8.0) pH Units Ur Specific [place] (1.010-1.025) Urine Protein (Neg-Trace) mg/dL Urine Glucose (UA) (Normal) mg/dL Urine Ketones (Negative) mg/dL Urine Blood (Negative) Urine Nitrite (Negative) Urine Bilirubin (Negative) Urine Urobilinogen (Normal) mg/dL Ur Leukocyte Esterase (Negative) Urine Microscopic RBC (0-3) per hpf Urine Microscopic WBC (0-3) per hpf Ur Squamous Epith Cells (None-Few) per lpf Calcium Oxalate Crystal Urine Bacteria (None-Few) per hpf Hyaline Casts (None-Few) per lpf Salicylates (15.0-30.0) mg/dL Urine Opiates Screen (Asdkfx=449) ng/mL Ur Buprenorphine Scrn (Cutoff=5) ng/mL Acetaminophen (10-20) mcg/mL Ur Barbiturates Screen (Ubjljf=921) ng/mL Ur Phencyclidine Scrn (Cutoff=25) ng/mL Ur Amphetamines Screen (Hypepv=7050) ng/mL U Benzodiazepines Scrn (Baoxon=290) ng/mL Urine Cocaine Screen (Cutoff= 300) ng/mL U Marijuana (THC) Screen (Cutoff = 50) ng/mL Ur Drug Screen Interp Ethyl Alcohol (Less than 10) mg/dL Attestation Statement - Attestation Attestation: Care of patient assumed from at 07:00 pending plan transfer to [facility] for mental health care. The patient did request something for anxiety at 07:20.
[2018-12-30] MEDS: ALPRAZolam 0.5 MG TABLET PO ONE ×2 (08:09→12:36)
[2018-12-30] MEDS ORDERED: ALPRAZolam 0.5 MG TABLET PO ONE (08:15)
[2018-12-30] MEDS ORDERED: ALPRAZolam 0.25 MG TABLET PO ONE (12:17)
[2018-12-30] MEDS ORDERED: traZODone 50 MG TABLET PO PRN (14:42)
[2018-12-30] MEDS ORDERED: *HR* LORazepam 1 MG TABLET PO PRN (14:42)
[2018-12-30] MEDS ORDERED: *HR* LORazepam 2 MG/ML VIAL IM PRN (14:42)
[2018-12-30] MEDS ORDERED: MOM Conc 10 ML UD.LIQ PO PRN (14:42)
[2018-12-30] MEDS ORDERED: Acetaminophen 325 MG TABLET PO PRN (14:42)
[2018-12-30] MEDS ORDERED: Mag Hydrox/Al Hydrox/Simeth 30 ML UDC PO PRN (14:42)
[2018-12-30] MEDS ORDERED: Haloperidol Lactate 5 MG/ML VIAL IM PRN (14:42)
[2018-12-30] MEDS: hydrOXYzine pamoate 25 MG CAPSULE PO PRN ×2 (16:07→20:54)
[2018-12-30] MEDS: OXcarbazepine 150 MG TABLET PO SCH (20:54)
[2018-12-30] MEDS: risperiDONE 0.25 MG TABLET PO SCH (20:56)
[2018-12-31] MEDS ORDERED: Dextrose Gel 15 GM/37.5 ML TUBE PO PRN ×2 (07:25)
[2018-12-31] MEDS ORDERED: Insulin LISPRO 300 UNITS/3 ML VIAL SQ SCH (08:00)
[2018-12-31] MEDS: OXcarbazepine 150 MG TABLET PO SCH ×3 (08:26→21:10)
[2018-12-31] MEDS: hydrOXYzine pamoate 25 MG CAPSULE PO PRN ×3 (08:26→21:11)
[2018-12-31] MEDS: risperiDONE 0.25 MG TABLET PO SCH (08:26)
[2018-12-31] MEDS: Insulin LISPRO 300 UNITS/3 ML VIAL SQ SCH ×3 (08:27→16:28)
[2018-12-31] MEDS: Insulin DETEMIR 100 UNIT/ML X5UNITS SQ SCH (08:27)
--- NOTE | 2018-12-31 12:19 | Psychiatry History & Physical ---
Date of Encounter: 12/31/18 Time of Encounter: 11:30 History of Present Illness Patient Stated Chief Complaint: suicidal Medicare Admission Attestation: For traditional Medicare patients the provided hospital inpatient services are reasonable and necessary and in the case of services not specified as inpatient-only under 42 CFR 419.22 (n), that they are appropriately provided as inpatient services in accordance 42 CFR 412.3. For Critical Access Hospital the patient may reasonably be expected to be discharged or transferred to a hospital within 96 hours after admission to the Critical Access Hospital. Admitted From: Emergency Dept Plans for Post Hospital Care: Home History of Present Illness: Mr. Naidu is a 48 year old male who presented to the emergency room for feelings of anxiety and depression. 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 He has been having suicidal thoughts and thoughts to kill his mother. He reports had mood, decreased interest, feelings of guilt and worthlessness, low interest and hopelessness. He reports seeing visual hallucinations of demons and hearing the voice of the devil. Past Med Surg Social Fam HX - Past Medical History Medical history: diabetes, kidney stones, other - Past Psychiatric History Psychiatric history: Reports: anxiety, depression, prior suicide attempt, previous psychiatric hospitalization Past psychiatric history details: He has been hospitalized at [place] [facility] twice before and has 1 hospitalization at [facility]. He sees Dr. lashanda Segal at [place] outpatient. He reports trying to overdose several times in the past but never requiring inpatient hospitalization or to have his stomach pumped. He reports last one was a few months ago. He has never been tried on Luvox or lithium. He cannot tell me how long he has been on Zoloft or his current dose. Family psychiatric history: Yes Family Psychiatric History Details: anxiety Family History of Suicide: None - Past Surgical History Surgical History: cholecystectomy, other - Social History Smoking Status: Never smoker Smokeless Tobacco Status: No Alcohol use: occasionally Drug use: prescription drug abuse Occupational status: retired Current living situation: With Family Activity Level: Independent ambulation Recent Out of Country Travel Within the Last 8 Weeks: No Exposure or Possible Exposure to Illness During Travel: No - Family History Father Living Status: Hx Family Cardiac Disorders: Yes ([place]) Maternal Grandfather Living Status: Hx Family Cardiac Disorders: Yes ([place]) Hx Family Respiratory Disorders: No Hx Family Cancer: No Hx Family GI Disorders: No Hx Family Genitourinary Disorders: No Hx Family Endocrine Disorder: No Hx Family Musculoskeletal Disorders: No Hx Family Neuromuscular Disorders: No Hx Family Neurologic Disorders: No Hx Family HEENT Disorders: No Hx Family Autoimmune Disorders: No Hx Family Reproductive Disorders: No Hx Family Psychosocial Disorders: No Hx Family Medical Disorders: No Sister Hx Family GI Disorders: Yes (possible kidney stones) Medications & Allergies Clomipramine HCl [Anafranil] 50 mg PO HS 03/03/15 [History] Lipase/Protease/Amylase [Creon Dr 36,000 Units Capsule] 1 cap PO AD 04/28/17 [History] Lipase/Protease/Amylase [Creon Dr 36,000 Units Capsule] 2 cap PO TIDWM 04/28/17 [History] Pantoprazole Sodium 40 mg PO DAILY 04/28/17 [History] Insulin Degludec [Tresiba] 18 unit SQ DAILY 12/29/18 [History] Insulin LISPRO [Admelog] 0 unit SQ TIDWM 12/29/18 [History] OXcarbazepine [Oxcarbazepine] 300 mg PO 1400 12/29/18 [History] OXcarbazepine [Oxcarbazepine] 600 mg PO BID 12/29/18 [History] RisperiDONE [Risperdal] 0.5 mg PO BID 12/29/18 [History] Sertraline [Zoloft] 200 mg PO DAILY 12/29/18 [History] Trazodone HCl 100 - 200 mg PO HS 12/29/18 [History] Allergy/AdvReac Type Severity Reaction Status Date / Time No Known Allergies Allergy Verified 10/18/18 18:47 Review of Systems Constitutional: Denies: fever Eyes: Denies: eye pain Ears, Nose, Throat: Denies: ear pain Cardiovascular: Denies: chest pain Respiratory: Denies: cough Gastrointestinal: Denies: abdominal pain Genitourinary male: Denies: urgency Musculoskeletal: Reports: back pain, joint pain Integumentary: Denies: rash Neurological: Reports: headache, weakness Psychiatric: Reports: depression, anxiety, abnormal sleep pattern, suicidal ideation, homicidal ideation, auditory hallucinations, visual hallucinations, anhedonia Endocrine: Reports: fatigue Hematologic/Lymphatic: Denies: easy bleeding Allergic/Immunologic: Denies: facial swelling Exam - HEENT Head exam IM: Present: atraumatic Eye exam IM: Present: EOMI ENT exam IM: Present: mucous membranes moist - Neurological Neurological exam: Present: CN II-XII intact - Respiratory Respiratory exam IM: Absent: respiratory distress - GI/Abdominal GI/Abdominal exam IM: Present: no peritoneal signs - Extremities Extremities exam IM: Present: full ROM - Skin Skin exam IM: Absent: abrasion - Constitutional Vitals: Temp Pulse Resp BP Pulse Ox 97.9 F 110 16 114/74 100 12/31/18 08:33 12/31/18 08:33 12/31/18 08:33 12/31/18 08:33 12/31/18 08:33 General appearance: age & developmentally appropriate, disheveled - Musculoskeletal Gait: slow Station: stooped Strength & Tone: normal for patient - Psychiatric Patient Orientation: Yes Person, Yes Time, Yes Place, Yes Circumstance Level of alertness: Alert Behavior: anxious Psychomotor activity: Increased Eye Contact: Minimal Contact Mood Description: Anxious Patient description of mood: worried Affect description: congruent with mood Speech Volume: Normal Speech pattern: normal rate Language & Vocabulary: consistent with education Thought Process: Linear, Goal Oriented Thought Content: Yes Suicidal ideation, Yes Homicidal ideation, Yes Hoahaoism delusion Perceptual Disturbances: Yes Auditory hallucinations, Yes Visual hallucinations Attention Span Ability: Capable of Focused Attention Memory Description: Grossly Intact Patient Reliability: Reliable Historian Fund of knowledge: Yes abstraction ability, Yes average, Yes aware of current events Intelligence Estimate: Average Judgment: Poor Insight: None Results - Labs Labs: Laboratory Last Values WBC 7.1 K/mcL (4.3-11.1) 12/29/18 11:42 RBC 4.42 M/mcL (4.19-5.50) 12/29/18 11:42 Hgb 14.5 g/dL (12.9-16.9) 12/29/18 11:42 Hct 43.3 % (37.5-50.1) 12/29/18 11:42 MCV 98.0 fL (83.0-100.0) 12/29/18 11:42 MCH 32.8 pg (28.0-33.3) 12/29/18 11:42 MCHC 33.5 g/dL (31.6-35.5) 12/29/18 11:42 RDW 13.9 % (11.5-14.5) 12/29/18 11:42 Plt Count 374 K/mcL (140-400) 12/29/18 11:42 MPV 10.6 fL (9.4-12.4) 12/29/18 11:42 Immature Gran % 0.3 % (0-4) 12/29/18 11:42 Seg Neutrophils % 64.7 % 12/29/18 11:42 Lymphocytes % 22.0 % 12/29/18 11:42 Monocytes % 10.6 % 12/29/18 11:42 Eosinophils % 1.3 % 12/29/18 11:42 Basophils % 1.1 % 12/29/18 11:42 Neutrophils # 4.6 K/mcL (1.6-8.9) 12/29/18 11:42 Lymphocytes # 1.6 K/mcL (0.6-4.6) 12/29/18 11:42 Monocytes # 0.8 K/mcL (0.0-1.3) 12/29/18 11:42 Eosinophils # 0.1 K/mcL (0.0-0.6) 12/29/18 11:42 Basophils # 0.1 K/mcL (0.0-0.2) 12/29/18 11:42 Sodium 136 mEq/L (136-145) 12/29/18 11:42 Potassium 4.5 mEq/L (3.5-5.1) 12/29/18 11:42 Chloride 102 mEq/L (98-107) 12/29/18 11:42 Carbon Dioxide 27 mEq/L (23-29) 12/29/18 11:42 BUN 19 mg/dL (6-20) 12/29/18 11:42 Creatinine 0.93 mg/dL (0.70-1.30) 12/29/18 11:42 Est GFR ( Amer) > 60 (> 60) 12/29/18 11:42 Est GFR (Non-Af Amer) > 60 (> 60) 12/29/18 11:42 BUN/Creatinine Ratio 20 (6-26) 12/29/18 11:42 Glucose 242 mg/dL (70-105) H 12/29/18 11:42 POC Glucose 167 mg/dL (70-99) H 12/31/18 11:02 Calculated Osmolality 292 (280-300) 12/29/18 11:42 Calcium 9.4 mg/dL (8.6-10.3) 12/29/18 11:42 Urine Color Yellow (Yellow) 12/29/18 12:04 Urine Clarity Cloudy (Clear) A 12/29/18 12:04 Urine pH 5.5 pH Units (5.0-8.0) 12/29/18 12:04 Ur Specific [place] 1.026 (1.010-1.025) H 12/29/18 12:04 Urine Protein Negative mg/dL (Neg-Trace) 12/29/18 12:04 Urine Glucose (UA) 500 mg/dL (Normal) H 12/29/18 12:04 Urine Ketones Negative mg/dL (Negative) 12/29/18 12:04 Urine Blood Negative (Negative) 12/29/18 12:04 Urine Nitrite Negative (Negative) 12/29/18 12:04 Urine Bilirubin Negative (Negative) 12/29/18 12:04 Urine Urobilinogen Normal mg/dL (Normal) 12/29/18 12:04 Ur Leukocyte Esterase Negative (Negative) 12/29/18 12:04 Urine Microscopic RBC 0-3 per hpf (0-3) 12/29/18 12:04 Urine Microscopic WBC 0-3 per hpf (0-3) 12/29/18 12:04 Ur Squamous Epith Cells Few per lpf (None-Few) 12/29/18 12:04 Calcium Oxalate Crystal Present 12/29/18 12:04 Urine Bacteria Few per hpf (None-Few) 12/29/18 12:04 Hyaline Casts None Seen per lpf (None-Few) 12/29/18 12:04 Salicylates < 2.5 mg/dL (15.0-30.0) L 12/29/18 11:42 Urine Opiates Screen Negative ng/mL (Tljlkp=718) 12/29/18 12:04 Ur Buprenorphine Scrn Negative ng/mL (Cutoff=5) 12/29/18 12:04 Acetaminophen < 10 mcg/mL (10-20) L 12/29/18 11:42 Ur Barbiturates Screen Negative ng/mL (Hsvdkx=021) 12/29/18 12:04 Ur Phencyclidine Scrn Negative ng/mL (Cutoff=25) 12/29/18 12:04 Ur Amphetamines Screen Negative ng/mL (Huhhkw=2790) 12/29/18 12:04 U Benzodiazepines Scrn Negative ng/mL (Zebmes=181) 12/29/18 12:04 Urine Cocaine Screen Negative ng/mL (Cutoff= 300) 12/29/18 12:04 U Marijuana (THC) Screen Negative ng/mL (Cutoff = 50) 12/29/18 12:04 Ur Drug Screen Interp See Below 12/29/18 12:04 Ethyl Alcohol < 10 mg/dL (Less than 10) 12/29/18 11:42 Assessment and Plan (1) Depression Current visit: No Status: Chronic Plan: Admit inpatient for safety and stabilization, Close observation, Suicide Precautions per unit protocol, Encourage participation in unit milieu, Group Therapy, Monitor sleep, Monitor appetite Additional Plan: Patient has depression and OCD symptoms. He is on 200 of Zoloft. We discussed raising this above FDA approved levels to further get to his OCD symptoms. He does not want to do that at this time. He is agreeable to resuming his Risperdal to 1 mg by mouth twice a day. Encourage group attendance. Therapist work on discharge planning. Reviewed Interval hx Review any current labs Pt had an opportunity to ask questions and discuss current treatment plan. Supportive therapy was provided Pt encouraged to consider group or individual therapy Pt was in agreement with treatment plan. Pt was educated on the risks benefits and side effects of current medications and alternatives as well as the risks and benefits of no medication. AIMS = 0 lipids and hgba1c Qualifiers: Depression Type: major depressive disorder Major depression recurrence: recurrent Active/Remission status: currently active Major depression episode severity: moderate Qualified Code(s): F33.1 - Major depressive disorder, recurrent, moderate
[2018-12-31 14:28] LABS: Basophils # 0.1 K/mcL (0.0-0.2); Basophils % 0.9 %; Eosinophils # 0.3 K/mcL (0.0-0.6); Eosinophils % 2.5 %; Hematocrit 43.6 % (37.5-50.1); Hemoglobin 14.7 g/dL (12.9-16.9); Immature Granulocytes % 0.3 % (0-4); Lymphocytes % 17.9 %; Mean Corpuscular HGB Conc 33.7 g/dL (31.6-35.5); Mean Corpuscular Hemoglobin 32.7 pg (28.0-33.3); Mean Corpuscular Volume 97.1 fL (83.0-100.0); Mean Platelet Volume 10.5 fL (9.4-12.4); Monocytes # 1.1 K/mcL (0.0-1.3); Monocytes % 9.8 %; Neutrophils # 7.8 K/mcL (1.6-8.9); Platelet Count 387 K/mcL (140-400); Red Blood Count 4.49 M/mcL (4.19-5.50); Red Cell Distribution Width 13.8 % (11.5-14.5); Segmented Neutrophils % 68.6 %
[2018-12-31 14:32] LABS: White Blood Count 11.4 K/mcL (4.3-11.1)
[2018-12-31 14:49] LABS: Alanine Aminotransferase 29 Units/L (7-52); Albumin 4.1 g/dL (3.5-5.7); Albumin/Globulin Ratio 2.2 (1.1-2.2); Alkaline Phosphatase 133 Units/L (34-104); Aspartate Amino Transferase 22 Units/L (13-39); BUN/Creatinine Ratio 13 (6-26); Bilirubin,Total 0.4 mg/dL (0.3-1.0); Blood Urea Nitrogen 15 mg/dL (6-20); Carbon Dioxide 30 mEq/L (23-29); Chloride 103 mEq/L (98-107); Chol/HDL Ratio 3.3 (0-4.9); Cholesterol 130 mg/dL (< 200); Globulin 1.9 g/dL (2.4-3.5); Glucose 180 mg/dL (70-105); HDL Cholesterol 40 mg/dL (40-59); LDL Cholesterol,Calculated 64 mg/dL (0-99); Osmolality,Calculated 287 (280-300); Sodium 136 mEq/L (136-145); Triglycerides 128 mg/dL (< 150); eGFR For African Americans > 60 (> 60); eGFR For Non-African Americans > 60 (> 60)
[2018-12-31 15:01] LABS: Estimated Average Glucose 177 mg/dl
[2018-12-31] MEDS: traZODone 50 MG TABLET PO SCH ×2 (21:09)
[2018-12-31] MEDS: risperiDONE 1 MG TABLET PO SCH (21:10)
[2019-01-01] MEDS: Insulin LISPRO 300 UNITS/3 ML VIAL SQ SCH ×3 (08:31→18:45)
[2019-01-01] MEDS: risperiDONE 1 MG TABLET PO SCH ×2 (09:36→21:28)
[2019-01-01] MEDS: OXcarbazepine 150 MG TABLET PO SCH ×3 (09:37→21:28)
[2019-01-01] MEDS: Insulin DETEMIR 100 UNIT/ML X5UNITS SQ SCH (09:43)
--- NOTE | 2019-01-01 10:00 | Psychiatry Progress Note ---
Date of Encounter: 01/01/19 Time of Encounter: 08:30 Subjective Interval history: Patient last night was noted to be almost crawling around the floor saying he was afraid he might fall. He did attend groups during the day but refused some at night. He said he had difficulty falling asleep though according to staff once he fell asleep he did eat well. He has an appointment on Friday at 2 PM at the counseling center. He indicated he continues to have concerns about sinning and not being able to get to [facility]. Review of Systems Psychiatric: Reports: depression, anxiety, abnormal sleep pattern, suicidal ideation, homicidal ideation, auditory hallucinations, visual hallucinations, anhedonia Results - Vital Signs Vital Signs: Temp Pulse Resp BP Pulse Ox 98.4 F 85 18 93/66 100 12/31/18 20:33 12/31/18 20:33 12/31/18 20:33 12/31/18 20:33 12/31/18 20:33 - Labs Labs: Laboratory Results - last 24 hr 12/31/18 12/31/18 12/31/18 11:02 12:21 12:22 WBC 11.4 H D RBC 4.49 Hgb 14.7 Hct 43.6 MCV 97.1 MCH 32.7 MCHC 33.7 RDW 13.8 Plt Count 387 MPV 10.5 Immature Gran % 0.3 Seg Neutrophils % 68.6 Lymphocytes % 17.9 Monocytes % 9.8 Eosinophils % 2.5 Basophils % 0.9 Neutrophils # 7.8 Lymphocytes # 2.0 Monocytes # 1.1 Eosinophils # 0.3 Basophils # 0.1 Sodium 136 Potassium 4.0 Chloride 103 Carbon Dioxide 30 H BUN 15 Creatinine 1.12 Est GFR ( Amer) > 60 Est GFR (Non-Af Amer) > 60 BUN/Creatinine Ratio 13 Glucose 180 H POC Glucose 167 H Est Mean Plasma Glucose Hemoglobin A1c Calculated Osmolality 287 Calcium 9.0 Total Bilirubin 0.4 AST 22 ALT 29 Alkaline Phosphatase 133 H Serum Total Protein 6.0 L Albumin 4.1 Globulin 1.9 L Albumin/Globulin Ratio 2.2 Triglycerides 128 Cholesterol 130 LDL Cholesterol, Calc 64 VLDL Cholesterol, Calc 26 HDL Cholesterol 40 Cholesterol/HDL Ratio 3.3 T.pallidum Ab Interpret 12/31/18 12/31/18 12/31/18 12:22 14:07 16:24 WBC RBC Hgb Hct MCV MCH MCHC RDW Plt Count MPV Immature Gran % Seg Neutrophils % Lymphocytes % Monocytes % Eosinophils % Basophils % Neutrophils # Lymphocytes # Monocytes # Eosinophils # Basophils # Sodium Potassium Chloride Carbon Dioxide BUN Creatinine Est GFR ( Amer) Est GFR (Non-Af Amer) BUN/Creatinine Ratio Glucose POC Glucose 102 H Est Mean Plasma Glucose 177 Hemoglobin A1c 7.8 H Calculated Osmolality Calcium Total Bilirubin AST ALT Alkaline Phosphatase Serum Total Protein Albumin Globulin Albumin/Globulin Ratio Triglycerides Cholesterol LDL Cholesterol, Calc VLDL Cholesterol, Calc HDL Cholesterol Cholesterol/HDL Ratio T.pallidum Ab Interpret Negative 12/31/18 01/01/19 20:35 08:24 WBC RBC Hgb Hct MCV MCH MCHC RDW Plt Count MPV Immature Gran % Seg Neutrophils % Lymphocytes % Monocytes % Eosinophils % Basophils % Neutrophils # Lymphocytes # Monocytes # Eosinophils # Basophils # Sodium Potassium Chloride Carbon Dioxide BUN Creatinine Est GFR ( Amer) Est GFR (Non-Af Amer) BUN/Creatinine Ratio Glucose POC Glucose 176 H 102 H Est Mean Plasma Glucose Hemoglobin A1c Calculated Osmolality Calcium Total Bilirubin AST ALT Alkaline Phosphatase Serum Total Protein Albumin Globulin Albumin/Globulin Ratio Triglycerides Cholesterol LDL Cholesterol, Calc VLDL Cholesterol, Calc HDL Cholesterol Cholesterol/HDL Ratio T.pallidum Ab Interpret Assessment and Plan (1) Depression Current visit: No Status: Chronic Plan: Continue hospitalization, Close observation, Suicide Precautions per unit protocol, Encourage participation in unit milieu, Group Therapy, Monitor sleep, Monitor appetite Additional Plan: Add trazodone 100 mg by mouth daily at bedtime for insomnia. Continue Risperdal. He is tolerating the increased dose okay with a little bit of dizziness. Encourage groups. Qualifiers: Depression Type: major depressive disorder Major depression recurrence: recurrent Active/Remission status: currently active Major depression episode severity: moderate Qualified Code(s): F33.1 - Major depressive disorder, recurrent, moderate Consult Discharge Plan - Plan Referrals: [facility] [Outside] - 01/04/19 2:00 pm (You have an appointment scheduled on Friday, January 04, 2019 at 2:[address] Miles Valdez PsyD for Counseling. You have an appointment scheduled for Sunday, January 13, 2019 at 2:[address] Ernestina Magana DO for medication management. Please contact the office at least 24 hours in advance if you are unable to keep your appointment(s). ) Jed Beth MD [Non-Partnered Physician] - Psychiatry Exam - Constitutional Vitals: Temp Pulse Resp BP Pulse Ox 98.4 F 85 18 93/66 100 12/31/18 20:33 12/31/18 20:33 12/31/18 20:33 12/31/18 20:33 12/31/18 20:33 General appearance: age & developmentally appropriate - Musculoskeletal Gait: slow Station: stooped Strength & Tone: normal for patient - Psychiatric Patient Orientation: Yes Person, Yes Time, Yes Place, Yes Circumstance Level of alertness: Alert Behavior: withdrawn Psychomotor activity: Slowed Eye Contact: Minimal Contact Mood Description: Depressed Patient description of mood: sad Affect description: dysphoric Speech Volume: Soft/Quiet Speech pattern: slowed Language & Vocabulary: limited Thought Process: Circumstantial Thought Content: Yes Suicidal ideation, Yes Paranoid delusion, Yes Cheondoism delusion Perceptual Disturbances: Yes Auditory hallucinations, Yes Visual hallucinations Attention Span Ability: Capable of Focused Attention Memory Description: Grossly Intact Patient Reliability: Reliable Historian Fund of knowledge: Yes abstraction ability, Yes aware of current events Intelligence Estimate: Average Judgment: Limited Insight: Minimal
[2019-01-01] MEDS: hydrOXYzine pamoate 25 MG CAPSULE PO PRN (14:35)
[2019-01-01] MEDS: traZODone 50 MG TABLET PO SCH (21:28)
[2019-01-02] MEDS: risperiDONE 1 MG TABLET PO SCH ×3 (08:00→21:17)
[2019-01-02] MEDS: OXcarbazepine 150 MG TABLET PO SCH ×3 (08:01→21:16)
[2019-01-02] MEDS: Insulin LISPRO 300 UNITS/3 ML VIAL SQ SCH ×4 (08:06→16:06)
--- NOTE | 2019-01-02 08:45 | Psychiatry Progress Note ---
Date of Encounter: 01/02/19 Time of Encounter: 07:30 Subjective Interval history: Patient said he did not sleep well last night. He said that he was not given the Seroquel. He said that he continues to have ruminating thoughts about sikhism and feeling that he is dammed and this is part of what kept him up last night. He reports that when he feels he is going to hell anyway he then thinks he may has HELD himself. He is hopeless. He is not seeing demons anymore. Review of Systems Psychiatric: Reports: depression, anxiety, abnormal sleep pattern, suicidal ideation, anhedonia Results - Vital Signs Vital Signs: Temp Pulse Resp BP Pulse Ox 97.8 F 78 18 98/62 100 01/01/19 21:00 01/01/19 21:00 01/01/19 21:00 01/01/19 21:00 01/01/19 21:00 - Labs Labs: Laboratory Results - last 24 hr 01/01/19 01/01/19 01/01/19 11:59 16:58 18:50 POC Glucose 253 H 47 L* 207 H 01/01/19 01/02/19 21:26 07:41 POC Glucose 180 H 143 H Assessment and Plan (1) Depression Current visit: No Status: Chronic Plan: Continue hospitalization, Close observation, Suicide Precautions per unit protocol, Encourage participation in unit milieu, Group Therapy, Monitor sleep, Monitor appetite Additional Plan: Given the impulsive nature of his thoughts will increase Zoloft above FDA approved to 250. I did discuss this with him the risks, benefits, side effects of this alternative treatment options. We will also increase his at bedtime Risperdal to see if this will help him sleep better. Encourage group attendance. Risks, benefits, side effects, alternatives discussed w/pt: Yes Patient agreeable to treatment: Yes Qualifiers: Depression Type: major depressive disorder Major depression recurrence: recurrent Active/Remission status: currently active Major depression episode severity: moderate Qualified Code(s): F33.1 - Major depressive disorder, recurrent, moderate Consult Discharge Plan - Plan Referrals: [facility] [Outside] - 01/04/19 2:00 pm (You have an appointment scheduled on Friday, January 04, 2019 at 2:[address] Miles Valdez PsyD for Counseling. You have an appointment scheduled for Sunday, January 13, 2019 at 2:[address] Ernestina Magana DO for medication management. Please contact the office at least 24 hours in advance if you are unable to keep your appointment(s). ) Jed Beth MD [Non-Partnered Physician] - (Please contact the office at the number above and follow up with your primary care provider as needed. Please keep your primary care provider informed of any changes in your medications or medical conditions. ) Psychiatry Exam - Constitutional Vitals: Temp Pulse Resp BP Pulse Ox 97.8 F 78 18 98/62 100 01/01/19 21:00 01/01/19 21:00 01/01/19 21:00 01/01/19 21:00 01/01/19 21:00 General appearance: age & developmentally appropriate, disheveled - Musculoskeletal Gait: slow Station: stooped Strength & Tone: mild weakness - Psychiatric Patient Orientation: Yes Person, Yes Time, Yes Place, Yes Circumstance Level of alertness: Alert Behavior: anxious, tearful Psychomotor activity: Slowed Eye Contact: Minimal Contact Mood Description: Depressed, Anxious Patient description of mood: anxious Affect description: blunted Speech Volume: Soft/Quiet Speech pattern: slowed Language & Vocabulary: limited Thought Process: Linear, Goal Oriented Thought Content: Yes Suicidal ideation, Yes Restorationism delusion Perceptual Disturbances: Yes Auditory hallucinations Attention Span Ability: Capable of Focused Attention Memory Description: Grossly Intact Patient Reliability: Reliable Historian Fund of knowledge: Yes abstraction ability, Yes aware of current events Intelligence Estimate: Average Judgment: Limited Insight: Minimal
[2019-01-02] MEDS: Insulin DETEMIR 100 UNIT/ML X5UNITS SQ SCH (09:17)
[2019-01-02] MEDS: hydrOXYzine pamoate 25 MG CAPSULE PO PRN (21:16)
[2019-01-02] MEDS: traZODone 50 MG TABLET PO SCH (21:17)
--- NOTE | 2019-01-03 08:11 | Psychiatry Progress Note ---
Date of Encounter: 01/03/19 Time of Encounter: 08:00 Subjective Interval history: Patient reports that he continues to experience depression with judaism preoccupation. He worries he is [place] cannot be redeemed. He endorses suicidal ideations. He no longer has homicidal ideations and is no longer seeing demons. He is tolerating the increase in Zoloft. In slept a little better with higher Risperdal dose. Review of Systems Psychiatric: Reports: depression, anxiety, abnormal sleep pattern, suicidal ideation, anhedonia Results - Vital Signs Vital Signs: Temp Pulse Resp BP Pulse Ox 98.4 F 87 16 135/81 95 01/02/19 21:00 01/03/19 00:48 01/02/19 21:00 01/03/19 00:48 01/03/19 00:48 - Labs Labs: Laboratory Results - last 24 hr 01/02/19 01/02/19 01/02/19 11:49 15:58 20:50 POC Glucose 260 H 84 90 01/03/19 00:45 POC Glucose 104 H Assessment and Plan (1) Depression Current visit: No Status: Chronic Plan: Continue hospitalization, Close observation, Suicide Precautions per unit protocol, Encourage participation in unit milieu, Group Therapy, Monitor sleep, Monitor appetite Additional Plan: Continue current medications. Encourage group therapy. Therapists working on discharge planning. Risks, benefits, side effects, alternatives discussed w/pt: Yes Patient agreeable to treatment: Yes Qualifiers: Depression Type: major depressive disorder Major depression recurrence: recurrent Active/Remission status: currently active Major depression episode severity: moderate Qualified Code(s): F33.1 - Major depressive disorder, recurrent, moderate Consult Discharge Plan - Plan Referrals: [facility] [Outside] - 01/04/19 2:00 pm (You have an appointment scheduled on Friday, January 04, 2019 at 2:[address] Miles Valdez PsyD for Counseling. You have an appointment scheduled for Sunday, January 13, 2019 at 2:[address] Ernestina Magana DO for medication management. Please contact the office at least 24 hours in advance if you are unable to keep your appointment(s). ) Jed Beth MD [Non-Partnered Physician] - (Please contact the office at the number above and follow up with your primary care provider as needed. Please keep your primary care provider informed of any changes in your medications or medical conditions. ) Psychiatry Exam - Constitutional Vitals: Temp Pulse Resp BP Pulse Ox 98.4 F 87 16 135/81 95 01/02/19 21:00 01/03/19 00:48 01/02/19 21:00 01/03/19 00:48 01/03/19 00:48 General appearance: age & developmentally appropriate - Musculoskeletal Gait: slow Station: stooped Strength & Tone: normal for patient - Psychiatric Patient Orientation: Yes Person, Yes Time, Yes Place, Yes Circumstance Level of alertness: Alert Behavior: anxious Psychomotor activity: Slowed Eye Contact: Minimal Contact Mood Description: Depressed Patient description of mood: Worried Affect description: congruent with mood, anxious Speech Volume: Soft/Quiet Speech pattern: slowed Language & Vocabulary: consistent with education Thought Process: Linear, Goal Oriented Thought Content: Yes Suicidal ideation, No Homicidal ideation, Yes Shinto delusion Perceptual Disturbances: No Reacting to internal stimuli Attention Span Ability: Capable of Focused Attention Memory Description: Grossly Intact Patient Reliability: Reliable Historian Fund of knowledge: Yes abstraction ability, Yes aware of current events Intelligence Estimate: Average Judgment: Limited Insight: Minimal
[2019-01-03] MEDS: Insulin LISPRO 300 UNITS/3 ML VIAL SQ SCH ×3 (08:24→17:55)
[2019-01-03] MEDS: risperiDONE 1 MG TABLET PO SCH ×2 (10:20→21:48)
[2019-01-03] MEDS: OXcarbazepine 150 MG TABLET PO SCH ×3 (10:21→21:46)
[2019-01-03] MEDS: Insulin DETEMIR 100 UNIT/ML X5UNITS SQ SCH (10:34)
[2019-01-03] MEDS: traZODone 50 MG TABLET PO SCH (21:47)
[2019-01-04] MEDS: Insulin LISPRO 300 UNITS/3 ML VIAL SQ SCH ×2 (08:27→11:41)
[2019-01-04] MEDS: OXcarbazepine 150 MG TABLET PO SCH (08:33)
[2019-01-04] MEDS: Insulin DETEMIR 100 UNIT/ML X5UNITS SQ SCH (08:34)
[2019-01-04] MEDS: risperiDONE 1 MG TABLET PO SCH (09:53)
[2019-01-04 09:59] VITALS: BP 95/62
--- NOTE | 2019-01-04 11:21 | Discharge Summary ---
Date of Encounter: 01/04/19 Time of Encounter: 11:16 Diagnosis - Discharge Diagnosis (1) Major depression Status: Acute Qualifiers: Major depression recurrence: recurrent Active/Remission status: currently active Major depression episode severity: moderate Qualified Code(s): F33.1 - Major depressive disorder, recurrent, moderate Medications - Discharge Medications Prescriptions: Benztropine [Cogentin] 0.5 mg PO HS #30 tablet risperiDONE [RisperDAL] 1 mg PO QAM #30 tablet risperiDONE [RisperDAL] 2 mg PO HS #60 tablet Sertraline [Zoloft] 250 mg PO DAILY #90 tablet Clomipramine HCl [Anafranil] 50 mg PO HS 03/03/15 [History] Lipase/Protease/Amylase [Lyric Her 36,000 Units Capsule] 1 cap PO AD 04/28/17 [History] Lipase/Protease/Amylase [Lyric Dr 36,000 Units Capsule] 2 cap PO TIDWM 04/28/17 [History] Pantoprazole Sodium 40 mg PO DAILY 04/28/17 [History] Insulin Degludec [Tresiba] 18 unit SQ DAILY 12/29/18 [History] Insulin LISPRO [Admelog] 0 unit SQ TIDWM 12/29/18 [History] OXcarbazepine [Oxcarbazepine] 300 mg PO 1400 12/29/18 [History] OXcarbazepine [Oxcarbazepine] 600 mg PO BID 12/29/18 [History] Trazodone HCl 100 - 200 mg PO HS 12/29/18 [History] Benztropine [Cogentin] 0.5 mg PO HS #30 tablet 01/04/19 [Rx] Sertraline [Zoloft] 250 mg PO DAILY #90 tablet 01/04/19 [Rx] risperiDONE [RisperDAL] 1 mg PO QAM #30 tablet 01/04/19 [Rx] risperiDONE [RisperDAL] 2 mg PO HS #60 tablet 01/04/19 [Rx] Allergy/AdvReac Type Severity Reaction Status Date / Time No Known Allergies Allergy Verified 10/18/18 18:47 Results Procedures and tests throughout hospitalization: Completed Lab Orders Category Date Time Status Acetaminophen Stat Lab 12/29/18 11:42 Completed Basic Metabolic Panel Stat Lab 12/29/18 11:42 Completed Complete Blood Count [HEME] Routine Lab 12/31/18 12:21 Completed Complete Blood Count [HEME] Stat Lab 12/29/18 11:42 Completed Comprehensive Metabolic Panel Routine Lab 12/31/18 12:22 Completed Drug Screen, Urine [UCHEM] Stat Lab 12/29/18 12:04 Completed Ethanol Stat Lab 12/29/18 11:42 Completed Hgb A1C Routine Lab 12/31/18 14:07 Completed Lipid Panel Routine Lab 12/31/18 12:22 Completed Salicylate Stat Lab 12/29/18 11:42 Completed Treponema Pallidum Ab Routine Lab 12/31/18 12:22 Completed Urinalysis reflex Microscopic [URIN] Stat Lab 12/29/18 12:04 Completed Provider Date of admission: 12/30/18 14:42 Primary care physician: PCP NONE Consults: 01/03/19 01:55 Consult to Pastoral Services [CONS] Routine Comment: Discharging clinician: Renetta Hung Psychiatry Exam - Constitutional Vitals: Temp Pulse Resp BP Pulse Ox 97.4 F L 126 98 95/62 98 01/04/19 09:00 01/04/19 09:00 01/04/19 09:00 01/04/19 09:00 01/04/19 09:00 General appearance: age & developmentally appropriate, well-groomed, well- nourished - Musculoskeletal Gait: normal Station: relaxed Strength & Tone: normal for patient - Psychiatric Patient Orientation: Yes Person, Yes Time, Yes Place Level of alertness: Alert Behavior: calm, cooperative Psychomotor activity: Normal Eye Contact: Maintains Eye Contact Mood Description: Anxious Affect description: congruent with mood Speech Volume: Normal Speech pattern: normal rate, normal rhythm, normal tone, fluent, spontaneous Language & Vocabulary: consistent with education Thought Process: Linear, Goal Oriented Thought Content: No Suicidal ideation, No Homicidal ideation, No Overt delusions Perceptual Disturbances: No Auditory hallucinations, No Visual hallucinations Attention Span Ability: Capable of Focused Attention Memory Description: Grossly Intact Patient Reliability: Reliable Historian Fund of knowledge: Yes abstraction ability, Yes aware of current events Intelligence Estimate: Average Judgment: Fair Insight: Partial Hospital Course Hospital course: Mr. Naidu is a 48 year old male who was admitted secondary to SI and HI. HI was directed at his mother. Client had no intent or plan to hurt himself or his mother. Client reported that he just gets intrusive thoughts to engage in self harm or to harm his mother but that he did not want to do either. Client states he has been struggling with these thoughts for years and that thinking these things is nothing new. However, he does have periods of increased intensity during which he readily seeks additional services. Client has never harmed his mother before and is a nonviolent person. Client reports he "took too many pills" as a "half hearted" suicide attempt one time but immediately regretted his actions and called the squad himself. Has been behaviorally appropriate in the hospital with no issues. Home meds of Risperdal and Zoloft were both increased with good clinical efficacy. Client was reporting less intrusive thoughts. Adamantly denying HI today. Continues to have thoughts of self harm with no intent or plan. Thoughts are chronic and present at baseline and client feels he can manage them at home. Already well established with outpatient care. Client likes being in the hospital and states he will not hesitate to seek inpatient treatment again if he feels he needs a higher level of care. Patient was educated of his diagnosis and the risks, benefits, and side effects of this treatment and alternative treatment options and was monitored for responsiveness and side effects. Mood, anxiety, sleep, appetite, and interest improved, as did future orientation. Self-harm thoughts subsided, thinking cleared, psychosis resolved, and mood stabilized. Patient was able to attend both individual and group therapy sessions as well as meeting with the psychiatrist daily and urged to discuss any medication or treatment issues or other concerns. The patient was educated primarily by verbal means about their diagnosis and manifestations in their life. The option for treatment including group and individual therapy programming was offered to the patient in the use of medications with all their potential risks, benefits, and side effects were discussed with the patient at length. The patient was given the opportunity to ask questions and was noted to participate in the treatment in the planning process. The patient felt ready and eager to be discharged from the inpatient psychiatric unit to continue on with treatment as an outpatient. The patient agreed that he is safe for this disposition. The patient was considered to be able to participate in informed consent and decision making with respect to medical, legal, and financial issues of the time of discharge. At the time of discharge the patient adamantly denied any concerns for lethality including suicidal or homicidal thoughts ideations or plans and was future oriented toward ongoing mental health care, medical follow-up and sobriety. - Time Spent with Patient Total time spent providing and/or coordinating discharge services: Greater than 30 minutes Assessment and Plan - Patient/Caregiver Discharge Instructions Activity: resume usual activities as tolerated Diet: diabetic diet - Follow up Plan Follow up with: [facility] [Outside] - 01/27/19 1:00 pm (You have an appointment scheduled on Sunday, January 27, 2019 at 1:[address] Miles Valdez PsyD for Counseling. You have an appointment scheduled for Sunday, January 13, 2019 at 2:[address] Enrestina Magana DO for medication management. Please contact the office at least 24 hours in advance if you are unable to keep your appointment(s). ) Jed Beth MD [Non-Partnered Physician] - (Please contact the office at the number above and follow up with your primary care provider as needed. Please keep your primary care provider informed of any changes in your medications or medical conditions. ) Functional capacity at discharge: independent ambulation Overall status at discharge: Stable Disposition: Home, Self-Care Quality - Multiple Antipsychotics Patient discharged on 2 or more antipsychotic medications: No Procedures - Procedures Procedures: Medication Management, Crisis Stabilization, Supportive Therapy, Group Therapy
== END 2019-01-04 14:10 | disposition home or self-care (01) | DRG 751 ==
LOC: EMEROOARM 11:25 → 1ANU 11:25
PROVIDERS: ADMIT Psychiatry & Neurology Psychiatry; ATTEND Psychiatry & Neurology Psychiatry

== ENCOUNTER 2019-01-22 08:19 | Inpatient (IN) ==
[2019-01-22 08:47] LABS: Basophils # 0.1 K/mcL (0.0-0.2); Basophils % 1.5 %; Eosinophils # 0.1 K/mcL (0.0-0.6); Eosinophils % 1.3 %; Hematocrit 40.3 % (37.5-50.1); Hemoglobin 13.4 g/dL (12.9-16.9); Immature Granulocytes % 0.3 % (0-4); Lymphocytes # 1.5 K/mcL (0.6-4.6); Lymphocytes % 20.2 %; Mean Corpuscular HGB Conc 33.3 g/dL (31.6-35.5); Mean Corpuscular Hemoglobin 32.8 pg (28.0-33.3); Mean Corpuscular Volume 98.5 fL (83.0-100.0); Mean Platelet Volume 9.7 fL (9.4-12.4); Monocytes # 0.8 K/mcL (0.0-1.3); Monocytes % 10.6 %; Neutrophils # 4.9 K/mcL (1.6-8.9); Platelet Count 424 K/mcL (140-400); Red Blood Count 4.09 M/mcL (4.19-5.50); Red Cell Distribution Width 13.5 % (11.5-14.5); Segmented Neutrophils % 66.1 %; White Blood Count 7.4 K/mcL (4.3-11.1)
[2019-01-22 09:01] LABS: Bilirubin,Urine Negative (Negative); Blood,Urine Negative (Negative); Clarity,Urine Clear (Clear); Color,Urine Yellow (Yellow); Glucose,Urine (UA) Normal (Normal); Ketones,Urine Negative (Negative); Leukocyte Esterase,Urine Negative (Negative); Nitrite,Urine Negative (Negative); PH,Urine 5.5 pH Units (5.0-8.0); Protein,Urine Negative (Neg-Trace); Specific Gravity,Urine 1.019 (1.010-1.025); Urobilinogen,Urine Normal (Normal)
[2019-01-22 09:05] LABS: Acetaminophen < 10 mcg/mL (10-20); BUN/Creatinine Ratio 14 (6-26); Blood Urea Nitrogen 12 mg/dL (6-20); Carbon Dioxide 28 mEq/L (23-29); Chloride 102 mEq/L (98-107); Ethanol < 10 mg/dL (Less than 10); Glucose 138 mg/dL (70-105); Osmolality,Calculated 288 (280-300); Potassium 4.4 mEq/L (3.5-5.1); Salicylate < 2.5 mg/dL (15.0-30.0); Sodium 138 mEq/L (136-145); eGFR For African Americans > 60 (> 60); eGFR For Non-African Americans > 60 (> 60)
[2019-01-22 09:19] LABS: Amphetamine Screen,Urine Negative ng/mL (Cutoff=1000); Barbiturate Screen,Urine Negative ng/mL (Cutoff=200); Benzodiazepines Screen,Urine Negative ng/mL (Cutoff=200); Cannabinoid Screen,Urine Negative ng/mL (Cutoff = 50); Cocaine Screen,Urine Negative ng/mL (Cutoff= 300); Opiate Screen,Urine Negative ng/mL (Cutoff=300); Phencyclidine Screen,Urine Negative ng/mL (Cutoff=25)
--- NOTE | 2019-01-22 09:41 | Emergency Department Note ---
Disposition Clinical Impression: Suicidal ideation, Homicidal ideation Disposition: Admitted As Inpatient Condition: Good Referrals: NONE,PCP [Primary Care Provider] - Forms: ED Satisfaction Letter Time of Disposition: 11:54 General Adult HPI - General Chief complaint: ED Psychiatric Symptoms Stated complaint: SI Time Seen by Provider: 01/22/19 08:20 Source: patient, EMS Mode of arrival: EMS Limitations: no limitations Nursing Notes Reviewed: Yes Vital Signs Reviewed: Yes - History of Present Illness HPI Narrative: 48-year-old male with significant past medical history of OCD and suicidal ideation presenting to the emergency part chief complete is suicidal and homicidal ideation. Patient states that he keeps having dreams and auditory hallucinations telling him that he is committing "the ultimate sin". Patient states he has been admitted multiple times for suicidal and homicidal ideation. Last time was within the past month. He states he has no specific plan and no specific person that he is targeting. He denies visual hallucinations. Denies any intentional drug ingestions. Pain Scale: 0 - Related Data Home Medications Medication Instructions Recorded Confirmed Clomipramine HCl [Anafranil] 50 mg PO HS 03/03/15 01/07/19 Lipase/Protease/Amylase [Lyric Her 1 cap PO AD 04/28/17 01/07/19 36,000 Units Capsule] Lipase/Protease/Amylase [Lyric Her 3 cap PO TIDWM 04/28/17 01/07/19 36,000 Units Capsule] Pantoprazole Sodium 40 mg PO DAILY 04/28/17 01/07/19 Insulin Degludec [Tresiba] 18 unit SQ DAILY 12/29/18 01/07/19 Insulin LISPRO [Admelog] 0 unit SQ TIDWM 12/29/18 01/07/19 OXcarbazepine [Oxcarbazepine] 300 mg PO 1400 12/29/18 01/07/19 OXcarbazepine [Oxcarbazepine] 600 mg PO BID 12/29/18 01/07/19 Trazodone HCl 200 mg PO HS 12/29/18 01/07/19 Previous Rx's Medication Instructions Recorded Benztropine [Cogentin] 0.5 mg PO HS #30 tablet 01/04/19 Sertraline [Zoloft] 250 mg PO DAILY #90 tablet 01/04/19 risperiDONE [RisperDAL] 1 mg PO QAM #30 tablet 01/04/19 risperiDONE [RisperDAL] 2 mg PO HS #60 tablet 01/04/19 Allergies Allergy/AdvReac Type Severity Reaction Status Date / Time No Known Allergies Allergy Verified 10/18/18 18:47 All systems ED: reviewed and negative except as stated. Constitutional: Denies: fever Eyes: Reports: as per HPI ENT ED: Reports: as per HPI Cardiovascular: Denies: chest pain Respiratory: Denies: dyspnea Gastrointestinal: Reports: as per HPI Genitourinary: Reports: as per HPI Musculoskeletal: Reports: as per HPI Integumentary: Reports: as per HPI Neurological: Reports: as per HPI Psychiatric: Reports: suicidal thoughts, homicidal thoughts, auditory hallucinations Endocrine: Reports: as per HPI Hematological/Lymphatic: Reports: as per HPI Allergic/Immunologic: Reports: as per HPI Past Medical History - Past Medical History Attestation: Yes The following information was validated with the patient. Medical history: Reports: diabetes, kidney stones, other Surgical history: Reports: cholecystectomy, other Psychiatric history: Reports: anxiety, depression, prior suicide attempt, previous psychiatric hospitalization - Social History Smoking Status: Never smoker Smokeless Tobacco Status: No Alcohol use: Reports: occasionally Drug use: Reports: none Physical Exam - General Limitations: no limitations General appearance: alert, in no apparent distress - Head Head exam: atraumatic, normocephalic, normal inspection - Eye Eye exam: Absent: scleral icterus - ENT ENT exam: mucous membranes moist - Neck Neck exam: Present: full ROM - Chest Chest inspection: Present: symmetric chest wall rise - Respiratory Respiratory exam: Present: normal lung sounds bilaterally. Absent: respiratory distress, wheezes - Cardiovascular Cardiovascular exam: Present: regular rate, normal rhythm, normal heart sounds - Abdominal Exam Abdominal exam: Present: soft, Non-Tender. Absent: distention, guarding, rebound - Extremities Exam Extremities exam: Present: full ROM - Neurological Exam Neurological exam: Present: alert, oriented X3 - Psychiatric Psychiatric exam: Present: homicidal ideation, suicidal ideation - Skin Skin exam: Present: warm Course Course Narrative: 48-year-old male presenting for suicidal ideation. In the room he is alert and oriented 3 and hemodynamically stable. Physical exam is benign. At this time will obtain basic medical clearance laboratory analysis and urine analysis. Disposition pending. Patient agrees with this plan. - Reevaluation(s) Reevaluation #1: Patient's laboratory analysis has come back. I have consulted our psychiatric services 1A for further evaluation to determine disposition. Patient remains hemodynamically stable. Reevaluation #2: Patient has been evaluated by our psychiatry services. They will admit the patient at this hospital. We will provide him with a pink slip. Patient remains alert and oriented 3 and hemodynamically stable. Vital Signs Temperature 99.1 F 01/22/19 08:21 Pulse Rate 89 01/22/19 08:21 Respiratory Rate 18 01/22/19 08:21 Blood Pressure 147/93 01/22/19 08:21 O2 Sat by Pulse Oximetry 100 01/22/19 08:21 Temperature 99.1 F 01/22/19 08:21 Pulse Rate 89 01/22/19 08:21 Respiratory Rate 18 01/22/19 08:21 Blood Pressure 147/93 01/22/19 08:21 O2 Sat by Pulse Oximetry 100 01/22/19 08:21 Oxygen Delivery Oxygen Delivery Room Air Medical Decision Making - Lab Data Result diagrams: 01/22/19 08:24 01/22/19 08:24 Lab Results 01/22/19 01/22/19 01/22/19 Range/Units 08:24 08:24 08:53 WBC 7.4 (4.3-11.1) K/mcL RBC 4.09 L (4.19-5.50) M/mcL Hgb 13.4 (12.9-16.9) g/dL Hct 40.3 (37.5-50.1) % MCV 98.5 (83.0-100.0) fL MCH 32.8 (28.0-33.3) pg MCHC 33.3 (31.6-35.5) g/dL RDW 13.5 (11.5-14.5) % Plt Count 424 H (140-400) K/mcL MPV 9.7 (9.4-12.4) fL Immature Gran % 0.3 (0-4) % Seg Neutrophils % 66.1 % Lymphocytes % 20.2 % Monocytes % 10.6 % Eosinophils % 1.3 % Basophils % 1.5 % Neutrophils # 4.9 (1.6-8.9) K/mcL Lymphocytes # 1.5 (0.6-4.6) K/mcL Monocytes # 0.8 (0.0-1.3) K/mcL Eosinophils # 0.1 (0.0-0.6) K/mcL Basophils # 0.1 (0.0-0.2) K/mcL Sodium 138 (136-145) mEq/L Potassium 4.4 (3.5-5.1) mEq/L Chloride 102 (98-107) mEq/L Carbon Dioxide 28 (23-29) mEq/L BUN 12 (6-20) mg/dL Creatinine 0.83 (0.70-1.30) mg/dL Est GFR ( Amer) > 60 (> 60) Est GFR (Non-Af Amer) > 60 (> 60) BUN/Creatinine Ratio 14 (6-26) Glucose 138 H (70-105) mg/dL Calculated Osmolality 288 (280-300) Calcium 9.0 (8.6-10.3) mg/dL Urine Color (Yellow) Urine Clarity (Clear) Urine pH (5.0-8.0) pH Units Ur Specific Kemp (1.010-1.025) Urine Protein (Neg-Trace) mg/dL Urine Glucose (UA) (Normal) mg/dL Urine Ketones (Negative) mg/dL Urine Blood (Negative) Urine Nitrite (Negative) Urine Bilirubin (Negative) Urine Urobilinogen (Normal) mg/dL Ur Leukocyte Esterase (Negative) Salicylates < 2.5 L (15.0-30.0) mg/dL Urine Opiates Screen Negative (Rvrdws=651) ng/mL Ur Buprenorphine Scrn Negative (Cutoff=5) ng/mL Acetaminophen < 10 L (10-20) mcg/mL Ur Barbiturates Screen Negative (Iaewky=050) ng/mL Ur Phencyclidine Scrn Negative (Cutoff=25) ng/mL Ur Amphetamines Screen Negative (Txafms=2415) ng/mL U Benzodiazepines Scrn Negative (Pwdylk=224) ng/mL Urine Cocaine Screen Negative (Cutoff= 300) ng/mL U Marijuana (THC) Screen Negative (Cutoff = 50) ng/mL Ur Drug Screen Interp See Below Ethyl Alcohol < 10 (Less than 10) mg/dL 01/22/19 Range/Units Unknown WBC (4.3-11.1) K/mcL RBC (4.19-5.50) M/mcL Hgb (12.9-16.9) g/dL Hct (37.5-50.1) % MCV (83.0-100.0) fL MCH (28.0-33.3) pg MCHC (31.6-35.5) g/dL RDW (11.5-14.5) % Plt Count (140-400) K/mcL MPV (9.4-12.4) fL Immature Gran % (0-4) % Seg Neutrophils % % Lymphocytes % % Monocytes % % Eosinophils % % Basophils % % Neutrophils # (1.6-8.9) K/mcL Lymphocytes # (0.6-4.6) K/mcL Monocytes # (0.0-1.3) K/mcL Eosinophils # (0.0-0.6) K/mcL Basophils # (0.0-0.2) K/mcL Sodium (136-145) mEq/L Potassium (3.5-5.1) mEq/L Chloride (98-107) mEq/L Carbon Dioxide (23-29) mEq/L BUN (6-20) mg/dL Creatinine (0.70-1.30) mg/dL Est GFR ( Amer) (> 60) Est GFR (Non-Af Amer) (> 60) BUN/Creatinine Ratio (6-26) Glucose (70-105) mg/dL Calculated Osmolality (280-300) Calcium (8.6-10.3) mg/dL Urine Color Yellow (Yellow) Urine Clarity Clear (Clear) Urine pH 5.5 (5.0-8.0) pH Units Ur Specific Kemp 1.019 (1.010-1.025) Urine Protein Negative (Neg-Trace) mg/dL Urine Glucose (UA) Normal (Normal) mg/dL Urine Ketones Negative (Negative) mg/dL Urine Blood Negative (Negative) Urine Nitrite Negative (Negative) Urine Bilirubin Negative (Negative) Urine Urobilinogen Normal (Normal) mg/dL Ur Leukocyte Esterase Negative (Negative) Salicylates (15.0-30.0) mg/dL Urine Opiates Screen (Uzaapz=958) ng/mL Ur Buprenorphine Scrn (Cutoff=5) ng/mL Acetaminophen (10-20) mcg/mL Ur Barbiturates Screen (Pjxntp=771) ng/mL Ur Phencyclidine Scrn (Cutoff=25) ng/mL Ur Amphetamines Screen (Ptxpmd=2469) ng/mL U Benzodiazepines Scrn (Wsaocx=213) ng/mL Urine Cocaine Screen (Cutoff= 300) ng/mL U Marijuana (THC) Screen (Cutoff = 50) ng/mL Ur Drug Screen Interp Ethyl Alcohol (Less than 10) mg/dL
[2019-01-22] MEDS ORDERED: *HR* LORazepam 1 MG TABLET PO ONE (11:53)
--- NOTE | 2019-01-22 11:55 | Emergency Department Note ---
Disposition Clinical Impression: Suicidal ideation Disposition: Admitted As Inpatient Condition: Fair Referrals: NONE,PCP [Primary Care Provider] - Forms: ED Satisfaction Letter Time of Disposition: 11:54 General Adult HPI - General Chief complaint: ED Psychiatric Symptoms Stated complaint: SI Time Seen by Provider: 01/22/19 08:20 Source: patient, EMS Mode of arrival: EMS Limitations: no limitations - History of Present Illness Pain Scale: 0 - Related Data Home Medications Medication Instructions Recorded Confirmed Clomipramine HCl [Anafranil] 50 mg PO HS 03/03/15 01/07/19 Lipase/Protease/Amylase [Lyric Her 1 cap PO AD 04/28/17 01/07/19 36,000 Units Capsule] Lipase/Protease/Amylase [Lyric Her 3 cap PO TIDWM 04/28/17 01/07/19 36,000 Units Capsule] Pantoprazole Sodium 40 mg PO DAILY 04/28/17 01/07/19 Insulin Degludec [Tresiba] 18 unit SQ DAILY 12/29/18 01/07/19 Insulin LISPRO [Admelog] 0 unit SQ TIDWM 12/29/18 01/07/19 OXcarbazepine [Oxcarbazepine] 300 mg PO 1400 12/29/18 01/07/19 OXcarbazepine [Oxcarbazepine] 600 mg PO BID 12/29/18 01/07/19 Trazodone HCl 200 mg PO HS 12/29/18 01/07/19 Previous Rx's Medication Instructions Recorded Benztropine [Cogentin] 0.5 mg PO HS #30 tablet 01/04/19 Sertraline [Zoloft] 250 mg PO DAILY #90 tablet 01/04/19 risperiDONE [RisperDAL] 1 mg PO QAM #30 tablet 01/04/19 risperiDONE [RisperDAL] 2 mg PO HS #60 tablet 01/04/19 Allergies Allergy/AdvReac Type Severity Reaction Status Date / Time No Known Allergies Allergy Verified 10/18/18 18:47 Constitutional: Denies: fever Eyes: Reports: as per HPI ENT ED: Reports: as per HPI Cardiovascular: Denies: chest pain Respiratory: Denies: dyspnea Gastrointestinal: Reports: as per HPI Genitourinary: Reports: as per HPI Musculoskeletal: Reports: as per HPI Integumentary: Reports: as per HPI Neurological: Reports: as per HPI Psychiatric: Reports: suicidal thoughts, homicidal thoughts, auditory hallucinations Endocrine: Reports: as per HPI Hematological/Lymphatic: Reports: as per HPI Allergic/Immunologic: Reports: as per HPI Past Medical History - Past Medical History Medical history: Reports: diabetes, kidney stones, other Surgical history: Reports: cholecystectomy, other Psychiatric history: Reports: anxiety, depression, prior suicide attempt, previous psychiatric hospitalization - Social History Smoking Status: Never smoker Smokeless Tobacco Status: No Alcohol use: Reports: occasionally Drug use: Reports: none Physical Exam - General Limitations: no limitations General appearance: alert, in no apparent distress Course Vital Signs Temperature 99.1 F 01/22/19 08:21 Pulse Rate 89 01/22/19 08:21 Respiratory Rate 18 01/22/19 08:21 Blood Pressure 147/93 01/22/19 08:21 O2 Sat by Pulse Oximetry 100 01/22/19 08:21 Temperature 99.1 F 01/22/19 08:21 Pulse Rate 89 01/22/19 08:21 Respiratory Rate 18 01/22/19 08:21 Blood Pressure 147/93 01/22/19 08:21 O2 Sat by Pulse Oximetry 100 01/22/19 08:21 Oxygen Delivery Oxygen Delivery Room Air Medical Decision Making - Lab Data Result diagrams: 01/22/19 08:24 01/22/19 08:24 Lab Results 01/22/19 01/22/19 01/22/19 Range/Units 08:24 08:24 08:53 WBC 7.4 (4.3-11.1) K/mcL RBC 4.09 L (4.19-5.50) M/mcL Hgb 13.4 (12.9-16.9) g/dL Hct 40.3 (37.5-50.1) % MCV 98.5 (83.0-100.0) fL MCH 32.8 (28.0-33.3) pg MCHC 33.3 (31.6-35.5) g/dL RDW 13.5 (11.5-14.5) % Plt Count 424 H (140-400) K/mcL MPV 9.7 (9.4-12.4) fL Immature Gran % 0.3 (0-4) % Seg Neutrophils % 66.1 % Lymphocytes % 20.2 % Monocytes % 10.6 % Eosinophils % 1.3 % Basophils % 1.5 % Neutrophils # 4.9 (1.6-8.9) K/mcL Lymphocytes # 1.5 (0.6-4.6) K/mcL Monocytes # 0.8 (0.0-1.3) K/mcL Eosinophils # 0.1 (0.0-0.6) K/mcL Basophils # 0.1 (0.0-0.2) K/mcL Sodium 138 (136-145) mEq/L Potassium 4.4 (3.5-5.1) mEq/L Chloride 102 (98-107) mEq/L Carbon Dioxide 28 (23-29) mEq/L BUN 12 (6-20) mg/dL Creatinine 0.83 (0.70-1.30) mg/dL Est GFR ( Amer) > 60 (> 60) Est GFR (Non-Af Amer) > 60 (> 60) BUN/Creatinine Ratio 14 (6-26) Glucose 138 H (70-105) mg/dL Calculated Osmolality 288 (280-300) Calcium 9.0 (8.6-10.3) mg/dL Urine Color (Yellow) Urine Clarity (Clear) Urine pH (5.0-8.0) pH Units Ur Specific [place]ell (1.010-1.025) Urine Protein (Neg-Trace) mg/dL Urine Glucose (UA) (Normal) mg/dL Urine Ketones (Negative) mg/dL Urine Blood (Negative) Urine Nitrite (Negative) Urine Bilirubin (Negative) Urine Urobilinogen (Normal) mg/dL Ur Leukocyte Esterase (Negative) Salicylates < 2.5 L (15.0-30.0) mg/dL Urine Opiates Screen Negative (Fhtzii=064) ng/mL Ur Buprenorphine Scrn Negative (Cutoff=5) ng/mL Acetaminophen < 10 L (10-20) mcg/mL Ur Barbiturates Screen Negative (Roihom=113) ng/mL Ur Phencyclidine Scrn Negative (Cutoff=25) ng/mL Ur Amphetamines Screen Negative (Ivislp=1219) ng/mL U Benzodiazepines Scrn Negative (Oxjgbi=201) ng/mL Urine Cocaine Screen Negative (Cutoff= 300) ng/mL U Marijuana (THC) Screen Negative (Cutoff = 50) ng/mL Ur Drug Screen Interp See Below Ethyl Alcohol < 10 (Less than 10) mg/dL 01/22/19 Range/Units Unknown WBC (4.3-11.1) K/mcL RBC (4.19-5.50) M/mcL Hgb (12.9-16.9) g/dL Hct (37.5-50.1) % MCV (83.0-100.0) fL MCH (28.0-33.3) pg MCHC (31.6-35.5) g/dL RDW (11.5-14.5) % Plt Count (140-400) K/mcL MPV (9.4-12.4) fL Immature Gran % (0-4) % Seg Neutrophils % % Lymphocytes % % Monocytes % % Eosinophils % % Basophils % % Neutrophils # (1.6-8.9) K/mcL Lymphocytes # (0.6-4.6) K/mcL Monocytes # (0.0-1.3) K/mcL Eosinophils # (0.0-0.6) K/mcL Basophils # (0.0-0.2) K/mcL Sodium (136-145) mEq/L Potassium (3.5-5.1) mEq/L Chloride (98-107) mEq/L Carbon Dioxide (23-29) mEq/L BUN (6-20) mg/dL Creatinine (0.70-1.30) mg/dL Est GFR ( Amer) (> 60) Est GFR (Non-Af Amer) (> 60) BUN/Creatinine Ratio (6-26) Glucose (70-105) mg/dL Calculated Osmolality (280-300) Calcium (8.6-10.3) mg/dL Urine Color Yellow (Yellow) Urine Clarity Clear (Clear) Urine pH 5.5 (5.0-8.0) pH Units Ur Specific [place] 1.019 (1.010-1.025) Urine Protein Negative (Neg-Trace) mg/dL Urine Glucose (UA) Normal (Normal) mg/dL Urine Ketones Negative (Negative) mg/dL Urine Blood Negative (Negative) Urine Nitrite Negative (Negative) Urine Bilirubin Negative (Negative) Urine Urobilinogen Normal (Normal) mg/dL Ur Leukocyte Esterase Negative (Negative) Salicylates (15.0-30.0) mg/dL Urine Opiates Screen (Onefrx=852) ng/mL Ur Buprenorphine Scrn (Cutoff=5) ng/mL Acetaminophen (10-20) mcg/mL Ur Barbiturates Screen (Mqlbyk=878) ng/mL Ur Phencyclidine Scrn (Cutoff=25) ng/mL Ur Amphetamines Screen (Cdmwqb=6231) ng/mL U Benzodiazepines Scrn (Rqmbco=871) ng/mL Urine Cocaine Screen (Cutoff= 300) ng/mL U Marijuana (THC) Screen (Cutoff = 50) ng/mL Ur Drug Screen Interp Ethyl Alcohol (Less than 10) mg/dL Attestation Statement - Attestation Attestation: I examined this patient and my medical decision-making was reviewed with the Resident Physician. I agree with the documented findings, disposition and treatment plan as described except to the extent set forth below. Patient name is [facility] for suicidal ideation. Being treated for his anxiety emergency department, as he is rapidly pacing back and forth around room. No medical issues identified.
[2019-01-22] MEDS ORDERED: Haloperidol Lactate 5 MG/ML VIAL IM PRN (11:56)
[2019-01-22] MEDS ORDERED: MOM Conc 10 ML UD.LIQ PO PRN (11:56)
[2019-01-22] MEDS ORDERED: Mag Hydrox/Al Hydrox/Simeth 30 ML UDC PO PRN (11:56)
[2019-01-22] MEDS ORDERED: *HR* LORazepam 1 MG TABLET PO PRN (11:56)
[2019-01-22] MEDS ORDERED: *HR* LORazepam 2 MG/ML VIAL IM PRN (11:56)
[2019-01-22] MEDS ORDERED: Acetaminophen 325 MG TABLET PO PRN (11:56)
[2019-01-22] MEDS ORDERED: Dextrose Gel 15 GM/37.5 ML TUBE PO PRN ×2 (13:58)
[2019-01-22] MEDS: Insulin LISPRO 300 UNITS/3 ML VIAL SQ SCH (16:39)
[2019-01-22] MEDS: risperiDONE 1 MG TABLET PO SCH (21:26)
[2019-01-22] MEDS: traZODone 50 MG TABLET PO SCH (21:27)
[2019-01-22] MEDS: OXcarbazepine 150 MG TABLET PO SCH (21:29)
[2019-01-23] MEDS: Insulin LISPRO 300 UNITS/3 ML VIAL SQ SCH ×3 (08:44→16:51)
[2019-01-23] MEDS ORDERED: INSULIN DEGLUDEC 18 UNIT SQ SCH (09:00)
[2019-01-23] MEDS: risperiDONE 1 MG TABLET PO SCH ×2 (09:10→21:17)
[2019-01-23] MEDS: OXcarbazepine 150 MG TABLET PO SCH ×2 (09:11→21:19)
[2019-01-23] MEDS: hydrOXYzine pamoate 25 MG CAPSULE PO PRN ×2 (09:16→16:33)
--- NOTE | 2019-01-23 09:59 | Psychiatry History & Physical ---
Date of Encounter: 01/23/19 Time of Encounter: 09:20 History of Present Illness Patient Stated Chief Complaint: Want to Medicare Admission Attestation: For traditional Medicare patients the provided hospital inpatient services are reasonable and necessary and in the case of services not specified as inpatient-only under 42 CFR 419.22 (n), that they are appropriately provided as inpatient services in accordance 42 CFR 412.3. For Critical Access Hospital the patient may reasonably be expected to be discharged or transferred to a hospital within 96 hours after admission to the Critical Access Hospital. Admitted From: Emergency Dept Plans for Post Hospital Care: Home History of Present Illness: Mr. Naidu is a 48 year old male Mr. Naidu is a 48 year old male who pres ented to the emergency room for feelings of anxiety and depression. He has been obsessing over bahai concerns believing he has committed the unforgivable sin which he identifies as a bahai construct where the therapist sees did not believe that Fer was the Guru and because they had hardened their hearts to him they could not be saved and not go to [facility]. He has been having suicidal thoughts and thoughts to kill his mother as well as his dog. He reports had mood, decreased interest, feelings of guilt and worthlessness, low interest and hopelessness. He reports seeing visual hallucinations of demons and hearing the voice of the devil. He has some obsessive-compulsive type quality to these bahai preoccupations. He denies a history of manic symptoms. Past Med Surg Social Fam HX - Past Medical History Medical history: diabetes - Past Psychiatric History Psychiatric history: Reports: anxiety, depression, prior suicide attempt, previous psychiatric hospitalization Past psychiatric history details: He has been hospitalized at [place] [facility] three before and has 1 hospitalization at [facility] and one at [facility]. He was just here from 12/30/18-01/04/19 ans then at [facility] between that visit and this. He sees Dr. lashanda Segal at [place] outpatient. He reports trying to overdose several times in the past but never requiring inpatient hospitalization or to have his stomach pumped. He reports last one was a few months ago. He has never been tried on Luvox or lithium. When he was last here we increased his zoloft over FDA dose to try to get to the OCD symptoms but he says this hasn't helped. Family psychiatric history: Yes Family History of Suicide: None - Past Surgical History Surgical History: cholecystectomy, other - Social History Smoking Status: Never smoker Smokeless Tobacco Status: No Alcohol use: rarely Drug use: none Occupational status: disabled Current living situation: Home, With Family Activity Level: Independent ambulation Recent Out of Country Travel Within the Last 8 Weeks: No Exposure or Possible Exposure to Illness During Travel: No - Family History Father Living Status: Hx Family Cardiac Disorders: Yes ([place]) Maternal Grandfather Living Status: Hx Family Cardiac Disorders: Yes ([place]) Hx Family Respiratory Disorders: No Hx Family Cancer: No Hx Family GI Disorders: No Hx Family Endocrine Disorder: No Hx Family Neuromuscular Disorders: No Hx Family Neurologic Disorders: No Hx Family HEENT Disorders: No Hx Family Autoimmune Disorders: No Sister Hx Family GI Disorders: Yes (possible kidney stones) Medications & Allergies Lipase/Protease/Amylase [Creon Dr 36,000 Units Capsule] 1 cap PO AD 04/28/17 [History] Lipase/Protease/Amylase [Creon Dr 36,000 Units Capsule] 3 cap PO TIDWM 04/28/17 [History] Pantoprazole Sodium 40 mg PO DAILY 04/28/17 [History] Insulin Degludec [Tresiba] 18 unit SQ DAILY 12/29/18 [History] Insulin LISPRO [Admelog] 0 unit SQ TIDWM 12/29/18 [History] Trazodone HCl 200 mg PO HS 12/29/18 [History] Benztropine [Cogentin] 0.5 mg PO HS #30 tablet 01/04/19 [Rx] Sertraline [Zoloft] 250 mg PO DAILY #90 tablet 01/04/19 [Rx] risperiDONE [RisperDAL] 1 mg PO QAM #30 tablet 01/04/19 [Rx] risperiDONE [RisperDAL] 2 mg PO HS #60 tablet 01/04/19 [Rx] Clomipramine HCl 50 mg PO HS 01/22/19 [History] OXcarbazepine [Oxcarbazepine] 600 mg PO BID 01/22/19 [History] Allergy/AdvReac Type Severity Reaction Status Date / Time No Known Allergies Allergy Verified 01/22/19 12:45 Review of Systems Constitutional: Reports: weakness Eyes: Denies: eye pain Ears, Nose, Throat: Denies: ear pain Cardiovascular: Denies: chest pain Respiratory: Denies: cough Gastrointestinal: Denies: abdominal pain Genitourinary male: Denies: urgency Musculoskeletal: Reports: joint pain Integumentary: Denies: rash Neurological: Reports: weakness Psychiatric: Reports: depression, anxiety, abnormal sleep pattern, suicidal ideation, homicidal ideation, auditory hallucinations, visual hallucinations, anhedonia, difficulty concentrating, hopelessness Endocrine: Reports: fatigue Hematologic/Lymphatic: Denies: easy bleeding Allergic/Immunologic: Denies: facial swelling Exam - HEENT Head exam IM: Present: normal inspection Eye exam IM: Present: EOMI ENT exam IM: Present: mucous membranes moist - Neurological Neurological exam: Present: CN II-XII intact - Respiratory Respiratory exam IM: Absent: respiratory distress - GI/Abdominal GI/Abdominal exam IM: Present: no peritoneal signs - Extremities Extremities exam IM: Present: full ROM - Skin Skin exam IM: Absent: abrasion - Constitutional Vitals: Temp Pulse Resp BP Pulse Ox 97.9 F 87 16 101/69 100 01/22/19 20:10 01/22/19 20:10 01/22/19 20:10 01/22/19 20:10 01/22/19 20:10 General appearance: age & developmentally appropriate, thin - Musculoskeletal Gait: slow Station: stooped Strength & Tone: mild weakness - Psychiatric Patient Orientation: Yes Person, Yes Time, Yes Place, Yes Circumstance Level of alertness: Alert Behavior: anxious, tearful Psychomotor activity: Slowed Eye Contact: Minimal Contact Mood Description: Depressed, Anxious Affect description: dysphoric, anxious Speech Volume: Soft/Quiet Speech pattern: slowed Language & Vocabulary: consistent with education Thought Process: Linear, Goal Oriented Thought Content: Yes Suicidal ideation, Yes Preoccupation, Yes Yarsani delusion Perceptual Disturbances: Yes Auditory hallucinations, Yes Visual hallucinations Attention Span Ability: Capable of Focused Attention Memory Description: Grossly Intact Patient Reliability: Reliable Historian Fund of knowledge: Yes abstraction ability, Yes average, Yes aware of current events Intelligence Estimate: Average Judgment: Limited Insight: Partial Results - Labs Labs: Laboratory Last Values WBC 7.4 K/mcL (4.3-11.1) 01/22/19 08:24 RBC 4.09 M/mcL (4.19-5.50) L 01/22/19 08:24 Hgb 13.4 g/dL (12.9-16.9) 01/22/19 08:24 Hct 40.3 % (37.5-50.1) 01/22/19 08:24 MCV 98.5 fL (83.0-100.0) 01/22/19 08:24 MCH 32.8 pg (28.0-33.3) 01/22/19 08:24 MCHC 33.3 g/dL (31.6-35.5) 01/22/19 08:24 RDW 13.5 % (11.5-14.5) 01/22/19 08:24 Plt Count 424 K/mcL (140-400) H 01/22/19 08:24 MPV 9.7 fL (9.4-12.4) 01/22/19 08:24 Immature Gran % 0.3 % (0-4) 01/22/19 08:24 Seg Neutrophils % 66.1 % 01/22/19 08:24 Lymphocytes % 20.2 % 01/22/19 08:24 Monocytes % 10.6 % 01/22/19 08:24 Eosinophils % 1.3 % 01/22/19 08:24 Basophils % 1.5 % 01/22/19 08:24 Neutrophils # 4.9 K/mcL (1.6-8.9) 01/22/19 08:24 Lymphocytes # 1.5 K/mcL (0.6-4.6) 01/22/19 08:24 Monocytes # 0.8 K/mcL (0.0-1.3) 01/22/19 08:24 Eosinophils # 0.1 K/mcL (0.0-0.6) 01/22/19 08:24 Basophils # 0.1 K/mcL (0.0-0.2) 01/22/19 08:24 Sodium 138 mEq/L (136-145) 01/22/19 08:24 Potassium 4.4 mEq/L (3.5-5.1) 01/22/19 08:24 Chloride 102 mEq/L (98-107) 01/22/19 08:24 Carbon Dioxide 28 mEq/L (23-29) 01/22/19 08:24 BUN 12 mg/dL (6-20) 01/22/19 08:24 Creatinine 0.83 mg/dL (0.70-1.30) 01/22/19 08:24 Est GFR ( Amer) > 60 (> 60) 01/22/19 08:24 Est GFR (Non-Af Amer) > 60 (> 60) 01/22/19 08:24 BUN/Creatinine Ratio 14 (6-26) 01/22/19 08:24 Glucose 138 mg/dL (70-105) H 01/22/19 08:24 POC Glucose 127 mg/dL (70-99) H 01/23/19 08:42 Calculated Osmolality 288 (280-300) 01/22/19 08:24 Calcium 9.0 mg/dL (8.6-10.3) 01/22/19 08:24 Urine Color Yellow (Yellow) 01/22/19 Unknown Urine Clarity Clear (Clear) 01/22/19 Unknown Urine pH 5.5 pH Units (5.0-8.0) 01/22/19 Unknown Ur Specific [place] 1.019 (1.010-1.025) 01/22/19 Unknown Urine Protein Negative mg/dL (Neg-Trace) 01/22/19 Unknown Urine Glucose (UA) Normal mg/dL (Normal) 01/22/19 Unknown Urine Ketones Negative mg/dL (Negative) 01/22/19 Unknown Urine Blood Negative (Negative) 01/22/19 Unknown Urine Nitrite Negative (Negative) 01/22/19 Unknown Urine Bilirubin Negative (Negative) 01/22/19 Unknown Urine Urobilinogen Normal mg/dL (Normal) 01/22/19 Unknown Ur Leukocyte Esterase Negative (Negative) 01/22/19 Unknown Salicylates < 2.5 mg/dL (15.0-30.0) L 01/22/19 08:24 Urine Opiates Screen Negative ng/mL (Fpwxir=532) 01/22/19 08:53 Ur Buprenorphine Scrn Negative ng/mL (Cutoff=5) 01/22/19 08:53 Acetaminophen < 10 mcg/mL (10-20) L 01/22/19 08:24 Ur Barbiturates Screen Negative ng/mL (Nnhgjk=427) 01/22/19 08:53 Ur Phencyclidine Scrn Negative ng/mL (Cutoff=25) 01/22/19 08:53 Ur Amphetamines Screen Negative ng/mL (Xqvjtw=8385) 01/22/19 08:53 U Benzodiazepines Scrn Negative ng/mL (Xvpkik=543) 01/22/19 08:53 Urine Cocaine Screen Negative ng/mL (Cutoff= 300) 01/22/19 08:53 U Marijuana (THC) Screen Negative ng/mL (Cutoff = 50) 01/22/19 08:53 Ur Drug Screen Interp See Below 01/22/19 08:53 Ethyl Alcohol < 10 mg/dL (Less than 10) 01/22/19 08:24 Assessment and Plan (1) Depression Current visit: No Status: Chronic Plan: Admit inpatient for safety and stabilization, Close observation, Suicide Precautions per unit protocol, Encourage participation in unit milieu, Group Therapy, Monitor sleep, Monitor appetite Additional Plan: Patient has never been tried on Luvox and has significant OCD type qualities to his bahai preoccupation. We will cross titrate and decrease his Zoloft to 200 mg and start Luvox 50 mg and will discontinue the Anafranil. Encourage group attendance. Tinea his Risperdal. This may need increased in the future. Aims equals 0. Risks, benefits, side effects, alternatives discussed w/pt: Yes Patient agreeable to treatment: Yes Plans for Post Hospital Care: Home Estimated Length of Stay (Days): 3 Qualifiers: Depression Type: major depressive disorder Major depression recurrence: recurrent Active/Remission status: currently active Major depression episode severity: severe Psychotic features: with psychotic features Qualified Code(s): F33.3 - Major depressive disorder, recurrent, severe with psychotic symptoms
[2019-01-23] MEDS: Insulin DETEMIR 100 UNIT/ML X5UNITS SQ SCH (10:05)
[2019-01-23] MEDS: traZODone 50 MG TABLET PO SCH (21:17)
[2019-01-24] MEDS: OXcarbazepine 150 MG TABLET PO SCH ×2 (08:21→21:14)
[2019-01-24] MEDS: risperiDONE 1 MG TABLET PO SCH ×2 (08:21→21:15)
[2019-01-24] MEDS: hydrOXYzine pamoate 25 MG CAPSULE PO PRN ×4 (08:23→23:52)
[2019-01-24] MEDS: Insulin LISPRO 300 UNITS/3 ML VIAL SQ SCH ×3 (08:50→17:54)
--- NOTE | 2019-01-24 08:53 | Psychiatry Progress Note ---
Date of Encounter: 01/24/19 Time of Encounter: 08:10 Subjective Interval history: Patient continues to report depression with suicidal ideations with a plan to overdose and homicidal ideations towards his mother and dog. He reports ongoing sabianist preoccupation. He has so far tolerated starting Luvox and his Zoloft being decreased. He reports extreme anxiety and he had been taking BuSpar at home for this with a little relief. He is still very fixated on the Ativan he got in the emergency room. He is hopeless and withdrawn. Review of Systems Psychiatric: Reports: depression, anxiety, abnormal sleep pattern, suicidal ideation, homicidal ideation, auditory hallucinations, visual hallucinations, anhedonia, difficulty concentrating, hopelessness Results - Vital Signs Vital Signs: Temp Pulse Resp BP Pulse Ox 98.2 F 108 16 102/60 97 01/23/19 20:11 01/23/19 21:11 01/23/19 20:11 01/23/19 21:11 01/23/19 20:11 - Labs Labs: Laboratory Results - last 24 hr 01/23/19 01/23/19 01/23/19 11:38 14:14 14:54 POC Glucose 256 H 39 L* 264 H 01/23/19 01/23/19 01/24/19 16:32 20:37 01:10 POC Glucose 187 H 65 L 53 L 01/24/19 01/24/19 02:51 08:20 POC Glucose 236 H 121 H Assessment and Plan (1) Depression Current visit: No Status: Chronic Plan: Continue hospitalization, Close observation, Suicide Precautions per unit protocol, Encourage participation in unit milieu, Group Therapy, Monitor sleep, Monitor appetite Additional Plan: And tinea cost titration by decreasing Zoloft to 150 by mouth every morning and increasing Luvox 200 mg by mouth daily at bedtime. We will restart BuSpar 5 mg by mouth 3 times a day. Encourage group attendance. Risks, benefits, side effects, alternatives discussed w/pt: Yes Patient agreeable to treatment: Yes Qualifiers: Depression Type: major depressive disorder Major depression recurrence: re current Active/Remission status: currently active Major depression episode severity: severe Psychotic features: with psychotic features Qualified Code(s): F33.3 - Major depressive disorder, recurrent, severe with psychotic symptoms Consult Discharge Plan - Plan Referrals: [facility] [Outside] - 01/27/19 1:00 pm (You have an appointment scheduled on Sunday, January 27, 2019 at 1:[address] Miles Valdez PsyD for Counseling. You have an appointment scheduled for January at 12:[address] Ranjith Stahl D.O. for medication management. Please contact the office at least 24 hours in advance if you are unable to keep your appointment(s). ) Psychiatry Exam - Constitutional Vitals: Temp Pulse Resp BP Pulse Ox 98.2 F 108 16 102/60 97 01/23/19 20:11 01/23/19 21:11 01/23/19 20:11 01/23/19 21:11 01/23/19 20:11 General appearance: disheveled, thin - Musculoskeletal Gait: slow Station: stooped Strength & Tone: normal for patient - Psychiatric Patient Orientation: Yes Person, Yes Time, Yes Place, Yes Circumstance Level of alertness: Alert Behavior: withdrawn Psychomotor activity: Slowed Eye Contact: Minimal Contact Mood Description: Depressed, Anxious Patient description of mood: Worried Affect description: dysphoric, anxious Speech Volume: Soft/Quiet Speech pattern: slowed Language & Vocabulary: consistent with education Thought Process: Linear Thought Content: Yes Suicidal ideation, Yes Homicidal ideation, Yes Jehovah'S Witness delusion Perceptual Disturbances: Yes Auditory hallucinations, Yes Visual hallucinations Attention Span Ability: Capable of Focused Attention Memory Description: Grossly Intact Patient Reliability: Reliable Historian Fund of knowledge: Yes abstraction ability, Yes aware of current events Intelligence Estimate: Average Judgment: Poor Insight: None
[2019-01-24 09:02] LABS: Basophils # 0.1 K/mcL (0.0-0.2); Basophils % 1.2 %; Eosinophils # 0.2 K/mcL (0.0-0.6); Eosinophils % 3.4 %; Hemoglobin 13.8 g/dL (12.9-16.9); Immature Granulocytes % 0.1 % (0-4); Lymphocytes # 2.2 K/mcL (0.6-4.6); Lymphocytes % 31.7 %; Mean Corpuscular HGB Conc 32.9 g/dL (31.6-35.5); Mean Corpuscular Hemoglobin 32.3 pg (28.0-33.3); Mean Corpuscular Volume 98.4 fL (83.0-100.0); Mean Platelet Volume 10.2 fL (9.4-12.4); Monocytes # 0.9 K/mcL (0.0-1.3); Monocytes % 12.4 %; Neutrophils # 3.5 K/mcL (1.6-8.9); Platelet Count 464 K/mcL (140-400); Red Blood Count 4.27 M/mcL (4.19-5.50); Red Cell Distribution Width 13.6 % (11.5-14.5); Segmented Neutrophils % 51.2 %; White Blood Count 6.9 K/mcL (4.3-11.1)
[2019-01-24 09:11] LABS: Alanine Aminotransferase 38 Units/L (7-52); Albumin 3.9 g/dL (3.5-5.7); Albumin/Globulin Ratio 1.9 (1.1-2.2); Alkaline Phosphatase 113 Units/L (34-104); Aspartate Amino Transferase 27 Units/L (13-39); BUN/Creatinine Ratio 15 (6-26); Bilirubin,Total 0.5 mg/dL (0.3-1.0); Blood Urea Nitrogen 14 mg/dL (6-20); Calcium 8.9 mg/dL (8.6-10.3); Carbon Dioxide 29 mEq/L (23-29); Chloride 102 mEq/L (98-107); Chol/HDL Ratio 3.2 (0-4.9); Cholesterol 158 mg/dL (< 200); Globulin 2.1 g/dL (2.4-3.5); Glucose 136 mg/dL (70-105); HDL Cholesterol 50 mg/dL (40-59); LDL Cholesterol,Calculated 67 mg/dL (0-99); Osmolality,Calculated 291 (280-300); Potassium 3.9 mEq/L (3.5-5.1); Sodium 139 mEq/L (136-145); Triglycerides 207 mg/dL (< 150); eGFR For African Americans > 60 (> 60); eGFR For Non-African Americans > 60 (> 60)
[2019-01-24 09:23] LABS: Thyroid Stimulating Hormone 0.542 mcIU/mL (0.340-5.600)
[2019-01-24] MEDS: Insulin DETEMIR 100 UNIT/ML X5UNITS SQ SCH (10:18)
[2019-01-24 11:55] LABS: Estimated Average Glucose 169 mg/dl
[2019-01-24] MEDS: traZODone 50 MG TABLET PO SCH (21:12)
[2019-01-24] MEDS: traZODone 50 MG TABLET PO PRN (23:52)
[2019-01-25] MEDS: OXcarbazepine 150 MG TABLET PO SCH ×2 (08:18→21:20)
[2019-01-25] MEDS: risperiDONE 1 MG TABLET PO SCH ×2 (08:18→21:23)
[2019-01-25] MEDS: Insulin LISPRO 300 UNITS/3 ML VIAL SQ SCH ×3 (08:20→17:16)
--- NOTE | 2019-01-25 09:51 | Psychiatry Progress Note ---
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 Seems to be becoming hospital dependent. Continues to endorse SI/HI. No real intent or plan but reports intrusive thoughts are so bad he is fearful of acting on them. Trying to get established at [facility] for more intensive treatment of OCD type symptoms. Has first outpatient appointment on Friday. In process of cross titrating Luvox and Zoloft. Client has not noticed much benefit yet. Continues to report constant anxiety. Taking prn Vistaril as often as he can. Will increase dose of this prn today to try and help with breakthrough anxiety. Client not interacting much on the unit. No real participation in treatment. Does not attend groups. Poor sleep and appetite. Review of Systems Constitutional: Denies: fever, chills, weakness, weight change Eyes: Denies: eye pain, vision change Ears, Nose, Throat: Denies: ear pain, throat pain, dental pain, hearing loss, congestion Cardiovascular: Denies: chest pain, palpitations, dyspnea on exertion Respiratory: Denies: cough, dyspnea, wheezes Gastrointestinal: Denies: abdominal pain, nausea, vomiting, diarrhea, constipation Musculoskeletal: Denies: joint swelling, joint pain Neurological: Denies: headache, weakness, numbness, memory loss Psychiatric: Reports: depression, anxiety, abnormal sleep pattern, suicidal ideation, homicidal ideation, auditory hallucinations, visual hallucinations, anhedonia, difficulty concentrating, hopelessness Results - Vital Signs Vital Signs: Temp Pulse Resp BP Pulse Ox 98.2 F 93 16 117/81 98 01/24/19 21:00 01/24/19 21:00 01/24/19 21:00 01/24/19 21:00 01/24/19 21:00 - Labs Labs: Laboratory Results - last 24 hr 01/24/19 01/24/19 01/24/19 07:00 11:44 15:13 POC Glucose 176 H 65 L Est Mean Plasma Glucose 169 Hemoglobin A1c 7.5 H 01/24/19 01/24/19 01/24/19 15:31 16:25 17:06 POC Glucose 79 56 L 121 H Est Mean Plasma Glucose Hemoglobin A1c 01/24/19 01/24/19 01/25/19 20:04 23:15 08:05 POC Glucose 127 H 146 H 151 H Est Mean Plasma Glucose Hemoglobin A1c Assessment and Plan (1) Major depression Current visit: No Status: Acute Plan: Continue hospitalization, Close observation, Suicide Precautions per unit protocol, Encourage participation in unit milieu, Group Therapy, Monitor sleep, Monitor appetite Risks, benefits, side effects, alternatives discussed w/pt: Yes Patient agreeable to treatment: Yes Qualifiers: Major depression recurrence: recurrent Active/Remission status: currently active Major depression episode severity: moderate Qualified Code(s): F33.1 - Major depressive disorder, recurrent, moderate (2) OCD (obsessive compulsive disorder) Current visit: No Status: Chronic Plan: Continue hospitalization, Close observation, Suicide Precautions per unit protocol, Encourage participation in unit milieu, Group Therapy, Monitor sleep, Monitor appetite Risks, benefits, side effects, alternatives discussed w/pt: Yes Patient agreeable to treatment: Yes Qualifiers: Obsessive-compulsive disorder type: mixed obsessional thoughts and acts Qualified Code(s): F42.2 - Mixed obsessional thoughts and acts Consult Discharge Plan - Plan Referrals: [facility] [Outside] - 01/27/19 1:00 pm (You have an appointment scheduled on Sunday, January 27, 2019 at 1:[address] Miles Valdez PsyD for Counseling. You have an appointment scheduled for January at 12:[address] Ranjith Stahl D.O. for medication management. Please contact the office at least 24 hours in advance if you are unable to keep your appointment(s). ) Psychiatry Exam - Constitutional Vitals: Temp Pulse Resp BP Pulse Ox 98.2 F 93 16 117/81 98 01/24/19 21:00 01/24/19 21:00 01/24/19 21:00 01/24/19 21:00 01/24/19 21:00 General appearance: age & developmentally appropriate, well-groomed, well- nourished - Musculoskeletal Gait: normal Station: relaxed Strength & Tone: normal for patient - Psychiatric Patient Orientation: Yes Person, Yes Time, Yes Place Level of alertness: Alert Behavior: calm, cooperative Psychomotor activity: Normal Eye Contact: Maintains Eye Contact Mood Description: Depressed, Anxious Affect description: congruent with mood Speech Volume: Normal Speech pattern: normal rate, normal rhythm, normal tone, fluent, spontaneous Language & Vocabulary: consistent with education Thought Process: Linear Thought Content: Yes Suicidal ideation, Yes Homicidal ideation, No Overt delusions Perceptual Disturbances: No Auditory hallucinations, No Visual hallucinations Attention Span Ability: Capable of Focused Attention Memory Description: Grossly Intact Patient Reliability: Reliable Historian Fund of knowledge: Yes abstraction ability, Yes aware of current events Intelligence Estimate: Average Judgment: Limited Insight: Partial
[2019-01-25] MEDS: hydrOXYzine pamoate 25 MG CAPSULE PO PRN ×3 (11:45→21:20)
[2019-01-25] MEDS: traZODone 50 MG TABLET PO SCH (21:21)
[2019-01-26] MEDS: traZODone 50 MG TABLET PO PRN ×2 (00:33→23:51)
[2019-01-26] MEDS: OXcarbazepine 150 MG TABLET PO SCH ×2 (08:32→21:05)
[2019-01-26] MEDS: risperiDONE 1 MG TABLET PO SCH ×2 (08:32→21:04)
[2019-01-26] MEDS: Insulin LISPRO 300 UNITS/3 ML VIAL SQ SCH ×3 (08:36→16:22)
--- NOTE | 2019-01-26 10:36 | Psychiatry Progress Note ---
Date of Encounter: 01/26/19 Time of Encounter: 10:29 Subjective Interval history: Patient seen and examined at bedside. He currently denies SI/HI however he continues to complain of intrusive thoughts with denominational undertones. He states that he was previously able to speak to a corn sheller operator about his analysis of bible verses and was reassured which has helped. He states that theses thoughts continue to appear in his mind and he has to consistently analyze them repeatedly. He states that he is depressed when these repetitive thoughts continue to return and that his anxiety is not yet controlled. He is sleeping well however it takes a while for him to fall asleep. He is not participating in groups and continues to isolate himself despite admitting that interacting and talking with others or watching TV does help his repetitive thoughts and depression. Has an appointment at [facility] tomorrow afternoon and an appointment at [facility] for psychiatry on Friday. Anticipate discharge tomorrow morning. Suspect aspect of malingering and becoming hospital dependent. Increase dose of buspar and continue cross titration of Luvox and zoloft. Review of Systems Constitutional: Denies: fever, chills Eyes: Denies: vision change Ears, Nose, Throat: Denies: hearing loss Cardiovascular: Denies: chest pain, palpitations Respiratory: Denies: cough, dyspnea Gastrointestinal: Denies: abdominal pain, nausea, vomiting Genitourinary male: Denies: dysuria Musculoskeletal: Denies: back pain, joint swelling Integumentary: Denies: rash Neurological: Denies: headache, weakness, memory loss Psychiatric: Reports: depression, anxiety, abnormal sleep pattern, suicidal ideation, homicidal ideation, auditory hallucinations, visual hallucinations, anhedonia, difficulty concentrating, hopelessness Endocrine: Denies: fatigue, heat or cold intolerance Hematologic/Lymphatic: Denies: easy bleeding Allergic/Immunologic: Denies: urticaria Results - Vital Signs Vital Signs: Temp Pulse Resp BP Pulse Ox 97.7 F 73 16 123/82 99 01/25/19 20:33 01/25/19 20:33 01/25/19 20:33 01/25/19 20:33 01/25/19 20:33 - Labs Labs: Laboratory Results - last 24 hr 01/25/19 01/25/19 01/25/19 11:44 15:55 20:49 POC Glucose 187 H 143 H 96 01/26/19 08:12 POC Glucose 107 H Assessment and Plan (1) Major depression Current visit: No Status: Acute Plan: Continue hospitalization, Close observation, Suicide Precautions per unit protocol, Encourage participation in unit milieu, Group Therapy, Monitor sleep, Monitor appetite Additional Plan: Continuation of cross titration of Luvox and zoloft, will be done with zoloft tomorrow Increase dose of Buspar Anticipate D/C tomorrow for appointment and [facility] and appointment at [facility] on Friday. Risks, benefits, side effects, alternatives discussed w/pt: Yes Patient agreeable to treatment: Yes Qualifiers: Major depression recurrence: recurrent Active/Remission status: currently active Major depression episode severity: moderate Qualified Code(s): F33.1 - Major depressive disorder, recurrent, moderate (2) OCD (obsessive compulsive disorder) Current visit: Yes Status: Chronic Plan: Continue hospitalization, Close observation, Suicide Precautions per unit protocol, Encourage participation in unit milieu, Group Therapy, Monitor appetite Additional Plan: Continues to have intrusive repetitive thoughts- denominational undertones today Continue medication regimen Risks, benefits, side effects, alternatives discussed w/pt: Yes Patient agreeable to treatment: Yes Qualifiers: Obsessive-compulsive disorder type: mixed obsessional thoughts and acts Qualified Code(s): F42.2 - Mixed obsessional thoughts and acts Consult Discharge Plan - Plan Referrals: [facility] [Outside] - 01/27/19 1:00 pm (You have an appointment scheduled on Sunday, January 27, 2019 at 1:[address] Miles Valdez PsyD for Counseling. You have an appointment scheduled for January at 12:[address] Ranjith Stahl D.O. for medication management. Please contact the office at least 24 hours in advance if you are unable to keep your appointment(s). ) - Attending Attestation I examined this patient and my medical decision-making was reviewed with the Resident Physician. I agree with the documented findings, disposition and treatment plan as described except to the extent set forth below. Client continues to endorse anxiety with minimal improvement. Suspect there is a degree of hospital dependency. He seems to like being taken care of. Makes himself at home here. Often seen in the day room watching TV with his feet propped up on the table, looking very relaxed. However, he does not attend or participate in groups. Not actively engaging in treatment beyond taking med ications which he frequently wants adjusted. Has a therapy appointment tomorrow. Current plan is to discharge client to this appointment. Mother will pick him up and take him directly to this appointment. Also has an initial eval at [facility] on Friday. Client has been trying to get in to [facility] for a while so keeping this appointment will be important. Cross titration of Luvox and Zoloft will be done tomorrow. Client tolerating meds without issue. Psychiatry Exam - Constitutional Vitals: Temp Pulse Resp BP Pulse Ox 97.7 F 73 16 123/82 99 01/25/19 20:33 01/25/19 20:33 01/25/19 20:33 01/25/19 20:33 01/25/19 20:33 General appearance: age & developmentally appropriate, well-groomed, well- nourished, thin - Musculoskeletal Gait: normal Station: relaxed Strength & Tone: normal for patient - Psychiatric Patient Orientation: Yes Person, Yes Time, Yes Place Level of alertness: Alert, Follows commands Behavior: calm, cooperative, restless Psychomotor activity: Normal Eye Contact: Maintains Eye Contact Mood Description: Depressed, Anxious Affect description: congruent with mood Speech Volume: Normal Speech pattern: normal rate, normal rhythm, normal tone, fluent Language & Vocabulary: consistent with education Thought Process: Intact, Linear Thought Content: No Suicidal ideation, No Homicidal ideation, No Overt delusions Perceptual Disturbances: No Auditory hallucinations, No Visual hallucinations Attention Span Ability: Capable of Focused Attention Patient Reliability: Reliable Historian Fund of knowledge: Yes average, Yes aware of current events Intelligence Estimate: Average Judgment: Limited Insight: Partial
[2019-01-26] MEDS: traZODone 50 MG TABLET PO SCH (21:04)
[2019-01-26] MEDS: hydrOXYzine pamoate 25 MG CAPSULE PO PRN (21:05)
[2019-01-27] MEDS: Insulin LISPRO 300 UNITS/3 ML VIAL SQ SCH ×2 (08:24→11:42)
[2019-01-27] MEDS: risperiDONE 1 MG TABLET PO SCH (08:28)
[2019-01-27] MEDS: OXcarbazepine 150 MG TABLET PO SCH (08:28)
[2019-01-27 09:30] VITALS: BP 115/80
--- NOTE | 2019-01-27 11:36 | Discharge Summary ---
Date of Encounter: 01/27/19 Time of Encounter: 11:33 Diagnosis - Discharge Diagnosis (1) Major depression Status: Acute Qualifiers: Major depression recurrence: recurrent Active/Remission status: currently active Major depression episode severity: moderate Qualified Code(s): F33.1 - Major depressive disorder, recurrent, moderate (2) OCD (obsessive compulsive disorder) Status: Chronic Qualifiers: Obsessive-compulsive disorder type: mixed obsessional thoughts and acts Qualified Code(s): F42.2 - Mixed obsessional thoughts and acts Medications - Discharge Medications Prescriptions: Buspirone HCl [Buspar] 10 mg PO TID #90 tablet fluvoxaMINE [Luvox] 200 mg PO HS #60 tablet Lipase/Protease/Amylase [Creon Dr 36,000 Units Capsule] 1 cap PO AD 04/28/17 [History] Lipase/Protease/Amylase [Creon Dr 36,000 Units Capsule] 3 cap PO TIDWM 04/28/17 [History] Pantoprazole Sodium 40 mg PO DAILY 04/28/17 [History] Insulin Degludec [Tresiba] 18 unit SQ DAILY 12/29/18 [History] Insulin LISPRO [Admelog] 0 unit SQ TIDWM 12/29/18 [History] Trazodone HCl 200 mg PO HS 12/29/18 [History] Benztropine [Cogentin] 0.5 mg PO HS #30 tablet 01/04/19 [Rx] risperiDONE [RisperDAL] 1 mg PO QAM #30 tablet 01/04/19 [Rx] risperiDONE [RisperDAL] 2 mg PO HS #60 tablet 01/04/19 [Rx] OXcarbazepine [Oxcarbazepine] 600 mg PO BID 01/22/19 [History] Buspirone HCl [Buspar] 10 mg PO TID #90 tablet 01/27/19 [Rx] fluvoxaMINE [Luvox] 200 mg PO HS #60 tablet 01/27/19 [Rx] Allergy/AdvReac Type Severity Reaction Status Date / Time No Known Allergies Allergy Verified 01/22/19 12:45 Results Procedures and tests throughout hospitalization: Completed Lab Orders Category Date Time Status Acetaminophen Stat Lab 01/22/19 08:24 Completed Basic Metabolic Panel Stat Lab 01/22/19 08:24 Completed Complete Blood Count [HEME] Routine Lab 01/23/19 10:01 Completed Complete Blood Count [HEME] Stat Lab 01/22/19 08:24 Completed Comprehensive Metabolic Panel Routine Lab 01/23/19 10:01 Completed Drug Screen, Urine [UCHEM] Stat Lab 01/22/19 08:53 Completed Ethanol Stat Lab 01/22/19 08:24 Completed Hgb A1C Routine Lab 01/23/19 10:01 Completed Lipid Panel Routine Lab 01/23/19 10:01 Completed Salicylate Stat Lab 01/22/19 08:24 Completed Thyroid Stimulating Hormone Routine Lab 01/23/19 10:01 Completed Urinalysis reflex Microscopic [URIN] Stat Lab 01/22/19 Completed Provider Date of admission: 01/22/19 11:54 Primary care physician: PCP NONE Discharging clinician: Renetta Hung Psychiatry Exam - Constitutional Vitals: Temp Pulse Resp BP Pulse Ox 98.5 F 93 18 115/80 97 01/27/19 09:00 01/27/19 09:00 01/27/19 09:00 01/27/19 09:00 01/27/19 09:00 General appearance: age & developmentally appropriate, well-groomed, well- nourished - Musculoskeletal Gait: normal Station: relaxed Strength & Tone: normal for patient - Psychiatric Patient Orientation: Yes Person, Yes Time, Yes Place Level of alertness: Alert Behavior: calm, cooperative Psychomotor activity: Normal Eye Contact: Maintains Eye Contact Mood Description: Anxious Affect description: congruent with mood Speech Volume: Normal Speech pattern: normal rate, normal rhythm, normal tone, fluent, spontaneous Thought Process: Linear, Goal Oriented Thought Content: No Suicidal ideation, No Homicidal ideation, No Overt delusions Perceptual Disturbances: No Auditory hallucinations, No Visual hallucinations Attention Span Ability: Capable of Focused Attention Memory Description: Grossly Intact Patient Reliability: Reliable Historian Fund of knowledge: Yes abstraction ability, Yes aware of current events Intelligence Estimate: Average Judgment: Fair Insight: Partial Hospital Course Hospital course: Mr. Naidu is a 48 year old male who was admitted for intrusive thoughts of wanting to stab his mother and dog. Client has been struggling with these thoughts for a long time and has never acted on them. He has been in and out of mental health units trying to get these thoughts under control but reports limited success with medications. He has never appeared overly anxious to this junior technical writer. In fact, he has seemed very relaxed at times and staff have observed him in the day room with his feet propped up watching TV on numerous occasions. Client does not typically attend groups or engage in treatment beyond taking medications when he is here. He often requests med changes or higher doses of things but then reports limited relief from them. This admission his Zoloft was stopped in favor of Luvox. The thought was that Luvox is often better at treating OCD type symptoms. However, today client reports things are about the same. Still has intrusive thoughts but denies he is really at risk to hurt his mother, dog, or anyone else. Denies any intent or plan. Denies SI/AH/VH. Client has not exhibited any dangerous behaviors in the hospital. He is linked with [facility] and he has a follow up appointment there today. Client's mother intends to pick him up and take him directly to that appointment. He also has a new patient eval at [facility] on Friday. Client's physician at [facility] has been wanting him seen there to talk about alternative/more invasive treatments for OCD. Client is agreeable with the plan to continue his medications and follow up at [place] today and [facility] on Friday. Total time spent with client greater than 30 minutes. Patient was educated of his diagnosis and the risks, benefits, and side effects of this treatment and alternative treatment options and was monitored for responsiveness and side effects. Mood, anxiety, sleep, appetite, and interest improved, as did future orientation. Self-harm thoughts subsided, thinking cleared, psychosis resolved, and mood stabilized. Patient was able to attend both individual and group therapy sessions as well as meeting with the psychiatrist daily and urged to discuss any medication or treatment issues or other concerns. The patient was educated primarily by verbal means about their diagnosis and manifestations in their life. The option for treatment including group and individual therapy programming was offered to the patient in the use of medications with all their potential risks, benefits, and side effects were discussed with the patient at length. The patient was given the opportunity to ask questions and was noted to participate in the treatment in the planning process. The patient felt ready and eager to be discharged from the inpatient psychiatric unit to continue on with treatment as an outpatient. The patient agreed that he is safe for this disposition. The patient was considered to be able to participate in informed consent and decision making with respect to medical, legal, and financial issues of the time of discharge. At the time of discharge the patient adamantly denied any concerns for lethality including suicidal or homicidal thoughts ideations or plans and was future oriented toward ongoing mental health care, medical follow-up and sobriety. - Time Spent with Patient Total time spent providing and/or coordinating discharge services: Greater than 30 minutes Assessment and Plan - Patient/Caregiver Discharge Instructions Activity: resume usual activities as tolerated Diet: diabetic diet - Follow up Plan Follow up with: [facility] [Outside] - 01/27/19 1:00 pm (You have an appointment scheduled on Sunday, January 27, 2019 at 1:[address] Miles Valdez PsyD for Counseling. You have an appointment scheduled for January at 12:[address] Ranjith Stahl, D.Ketan. for medication management. Please contact the office at least 24 hours in advance if you are unable to keep your appointment(s). ) Functional capacity at discharge: independent ambulation Overall status at discharge: Stable Disposition: Home, Self-Care Quality - Multiple Antipsychotics Patient discharged on 2 or more antipsychotic medications: No Procedures - Procedures Procedures: Medication Management, Crisis Stabilization, Supportive Therapy, Group Therapy
== END 2019-01-27 12:32 | disposition home or self-care (01) | DRG 751 ==
LOC: EMEROOARM 08:19 → 1ANU 11:54
PROVIDERS: ADMIT Psychiatry & Neurology Psychiatry; ATTEND Psychiatry & Neurology Psychiatry

== ENCOUNTER 2021-11-20 06:21 | Observation (INO) ==
[2021-11-20] MEDS ORDERED: Iopamidol - 370 500 ML MLS IVP ONE (06:54)
[2021-11-20] MEDS ORDERED: 0.9 % Sodium Chloride 1,000 ML IVC ONE (06:54)
[2021-11-20] MEDS ORDERED: Ondansetron 4 MG/2 ML VIAL IVP ONE (06:54)
[2021-11-20] MEDS ORDERED: *HR* FentaNYL (PF) 100 MCG/2 ML VIAL IVP ONE (06:55)
[2021-11-20 07:08] LABS: Basophils # 0.1 K/mcL (0.0-0.2); Basophils % 2.3 %; Eosinophils # 0.2 K/mcL (0.0-0.6); Hemoglobin 13.9 g/dL (12.9-16.9); Lymphocytes # 1.4 K/mcL (0.6-4.6); Lymphocytes % 26.9 %; Mean Corpuscular HGB Conc 33.1 g/dL (31.6-35.5); Mean Corpuscular Hemoglobin 31.8 pg (28.0-33.3); Mean Corpuscular Volume 96.1 fL (83.0-100.0); Mean Platelet Volume 12.4 fL (9.4-12.4); Monocytes # 0.6 K/mcL (0.0-1.3); Neutrophils # 2.9 K/mcL (1.6-8.9); Platelet Count 316 K/mcL (140-400); Red Blood Count 4.37 M/mcL (4.19-5.50); Red Cell Distribution Width 12.9 % (11.5-14.5); Segmented Neutrophils % 54.8 %; White Blood Count 5.3 K/mcL (4.3-11.1)
[2021-11-20] MEDS ORDERED: Ketorolac 30 MG/ML VIAL IVP ONE (08:01)
[2021-11-20 08:25] LABS: Alanine Aminotransferase 60 Units/L (7-52); Albumin 4.2 g/dL (3.5-5.7); Albumin/Globulin Ratio 1.8 (1.1-2.2); Alkaline Phosphatase 96 Units/L (34-104); Aspartate Amino Transferase 59 Units/L (13-39); BUN/Creatinine Ratio 14 (6-26); Bilirubin,Total 0.7 mg/dL (0.3-1.0); Blood Urea Nitrogen 13 mg/dL (6-20); Calcium 8.8 mg/dL (8.6-10.3); Carbon Dioxide 19 mEq/L (23-29); Chloride 104 mEq/L (98-107); Globulin 2.4 g/dL (2.4-3.5); Glucose 298 mg/dL (70-105); Lipase 5 Units/L (11-82); Osmolality,Calculated 287 (280-300); Potassium 4.4 mEq/L (3.5-5.1); Sodium 133 mEq/L (136-145); Total Protein 6.6 g/dL (6.4-8.9); eGFR For African Americans > 60 (> 60); eGFR For Non-African Americans > 60 (> 60)
[2021-11-20] MEDS ORDERED: *HR* HYDROmorphone (PF) 1 MG/ML SYRINGE IVP ONE ×3 (08:30→11:19)
[2021-11-20 08:47] LABS: Bilirubin,Urine Negative (Negative); Blood,Urine Moderate (Negative); Clarity,Urine Clear (Clear); Color,Urine Yellow (Yellow); Glucose,Urine (UA) >=1000 mg/dL (Normal); Ketones,Urine 15 mg/dL (Negative); Leukocyte Esterase,Urine Negative (Negative); Nitrite,Urine Negative (Negative); PH,Urine 5.5 pH Units (5.0-8.0); Protein,Urine Negative (Neg-Trace); Specific Gravity,Urine 1.025 (1.010-1.025); Urobilinogen,Urine Normal (Normal)
[2021-11-20 08:57] LABS: RBC,Urine Present per hpf (0-3)
[2021-11-20] MEDS ORDERED: MetroNIDAZOLE 500 MG/100 ML 500 MG/100 ML BAG IVPB ONE (09:49)
[2021-11-20] MEDS ORDERED: Naloxone 0.4 MG/ML INJ IVP PRN (11:27)
[2021-11-20] MEDS ORDERED: Dextrose Gel 15 GM/37.5 ML TUBE PO PRN ×2 (11:30)
[2021-11-20] MEDS ORDERED: Insulin LISPRO 300 UNITS/3 ML VIAL SUBQ SCH (11:30)
[2021-11-20] MEDS ORDERED: *HR* Dextrose 50 % in Water (Syg) 50 ML SYRINGE IVP PRN (11:30)
[2021-11-20] MEDS ORDERED: Sodium Bicarbonate 75 MEQ in 0.45 % Sodium Chloride 1,000 ML IVC SCH (11:30)
[2021-11-20] MEDS ORDERED: D5% in Water 1,000 ML IVC PRN (11:30)
[2021-11-20] MEDS ORDERED: Ondansetron 4 MG/2 ML VIAL IVP PRN (14:01)
[2021-11-20] MEDS: Insulin LISPRO 300 UNITS/3 ML VIAL SUBQ SCH ×2 (14:28→17:42)
[2021-11-20] MEDS: Lipase (12,000 UN)/Protease (38,000 UN)/Amylase (60,000 UN) 1 EACH CAP.DR PO SCH (16:47)
[2021-11-20] MEDS: *HR* Heparin 5,000 UNIT/ML VIAL SQ SCH (16:48)
[2021-11-20] MEDS: MetroNIDAZOLE 500 MG/100 ML 500 MG/100 ML BAG IVPB SCH ×2 (16:48→23:38)
[2021-11-20] MEDS: *HR* OxyCODONE Immed Rel 5 MG TABLET PO PRN ×2 (18:02→22:34)
[2021-11-20] MEDS ORDERED: rOPINIRole 1 MG TABLET PO SCH (21:00)
[2021-11-21] MEDS: *HR* Heparin 5,000 UNIT/ML VIAL SQ SCH (06:24)
[2021-11-21 07:09] LABS: Basophils # 0.1 K/mcL (0.0-0.2); Basophils % 1.8 %; Eosinophils # 0.6 K/mcL (0.0-0.6); Eosinophils % 9.8 %; Hematocrit 36.2 % (37.5-50.1); Immature Granulocytes % 0.2 % (0-4); Lymphocytes # 2.3 K/mcL (0.6-4.6); Lymphocytes % 39.9 %; Mean Corpuscular HGB Conc 33.7 g/dL (31.6-35.5); Mean Corpuscular Hemoglobin 31.9 pg (28.0-33.3); Mean Corpuscular Volume 94.8 fL (83.0-100.0); Mean Platelet Volume 11.6 fL (9.4-12.4); Monocytes # 0.7 K/mcL (0.0-1.3); Monocytes % 11.6 %; Neutrophils # 2.1 K/mcL (1.6-8.9); Platelet Count 330 K/mcL (140-400); Red Blood Count 3.82 M/mcL (4.19-5.50); Red Cell Distribution Width 12.8 % (11.5-14.5); Segmented Neutrophils % 36.7 %; White Blood Count 5.7 K/mcL (4.3-11.1)
[2021-11-21 07:12] LABS: Hemoglobin 12.2 g/dL (12.9-16.9)
[2021-11-21 07:24] VITALS: O2SAT 99
[2021-11-21 07:42] LABS: BUN/Creatinine Ratio 11 (6-26); Blood Urea Nitrogen 10 mg/dL (6-20); Calcium 8.4 mg/dL (8.6-10.3); Carbon Dioxide 26 mEq/L (23-29); Chloride 103 mEq/L (98-107); Glucose 188 mg/dL (70-105); Magnesium 1.6 mg/dL (1.6-2.6); Osmolality,Calculated 282 (280-300); Phosphorous 2.5 mg/dL (2.7-4.5); Potassium 3.9 mEq/L (3.5-5.1); Sodium 134 mEq/L (136-145); eGFR For African Americans > 60 (> 60); eGFR For Non-African Americans > 60 (> 60)
[2021-11-21] MEDS: MetroNIDAZOLE 500 MG/100 ML 500 MG/100 ML BAG IVPB SCH (08:00)
[2021-11-21] MEDS: Lipase (12,000 UN)/Protease (38,000 UN)/Amylase (60,000 UN) 1 EACH CAP.DR PO SCH (08:01)
[2021-11-21] MEDS: *HR* OxyCODONE Immed Rel 5 MG TABLET PO PRN (08:02)
[2021-11-21] MEDS: Insulin LISPRO 300 UNITS/3 ML VIAL SUBQ SCH (08:05)
[2021-11-21] MEDS ORDERED: Insulin DETEMIR 100 UNIT/ML X5UNITS SUBQ SCH (09:00)
[2021-11-21 11:45] VITALS: BP 135/68; PULSE 51; TEMP 98.1
== END 2021-11-21 12:47 | disposition home or self-care (01) ==
LOC: EMEROOARM 06:21 → 3ANU 06:21 → SUATTDRO 11:10 → 3ANU 11:58
PROVIDERS: ADMIT Internal Medicine; ATTEND Internal Medicine